=== PATIENT | male | born 1945 | race Caucasian/White ===

== ENCOUNTER → 2017-10-25 10:20 | Outpatient (CLI) | payer MEDICARE, MEDICAID, SELFPAY ==
[2017-10-25 11:35] LABS: PSA,Total - Annual Screen 0.59 ng/mL (0.00-4.00)
== END ==
PROVIDERS: Family Provider Family Medicine; PCP Family Medicine; Visit Provider Urology
DX: Z12.5 Encounter for screening for malignant neoplasm of prostate (principal)
CPT/HCPCS: 36415; 84153; G0103

== ENCOUNTER → 2018-11-04 13:41 | Outpatient (CLI) | payer MEDICARE, MEDICAID, SELFPAY ==
[2018-11-04 15:07] LABS: PSA,Total - Annual Screen 0.46 ng/mL (0.00-4.00)
== END ==
PROVIDERS: Family Provider Family Medicine; PCP Family Medicine; Referring Provider Urology; Visit Provider Urology
DX: Z12.5 Encounter for screening for malignant neoplasm of prostate (principal)
CPT/HCPCS: 36415; 84153; G0103

== ENCOUNTER 2019-09-13 01:21 | Inpatient (IN) | payer MEDICARE, MEDICAID, SELFPAY ==
[2019-09-13] VITALS (48 sets, daily range): BP systolic 92–160; BP diastolic 48–95; PULSE 75–142; RESP 12–40; TEMP 36.4–37.3; O2SAT 79–100; BMI 27.5; BMI 25.6
--- NOTE | 2019-09-13 01:46 | RAD_ITS ---
STUDY: X-RAY CHEST REASON FOR EXAM: Male, 74 years old. cough and sob TECHNIQUE: PA and lateral views of the chest. COMPARISON: None. FINDINGS: The lungs are normally expanded with mild bilateral lower lobe distended with pneumonia. There is no demonstrated pleural abnormality. Normal size heart. Normal mediastinum and morena. Normal visualized pulmonary arteries. There is atherosclerotic calcification of the aortic arch with tortuosity. Normal visualized thoracic spine. There is degenerative osteoarthritis of the bilateral shoulders. There is no demonstrated abnormality of the visualized soft tissue structures of the upper abdomen. RAD/Chest PA and Lateral IMPRESSION: Bilateral lower lobe pneumonia. Electronically Signed: Paris Espinoza MD at 2:32 EST , Service support ,
--- NOTE | 2019-09-13 01:46 | EKG12_ITS ---
Test Reason : Blood Pressure : / mmHG Vent. Rate : 122 BPM Atrial Rate : 122 BPM P-R Int : 138 ms QRS Dur : 100 ms QT Int : 332 ms P-R-T Axes : 043 -21 103 degrees QTc Int : 473 ms Sinus tachycardia with occasional Premature ventricular complexes Possible Left atrial enlargement Left ventricular hypertrophy with repolarization abnormality Abnormal ECG Confirmed by YANETH JOYA, SEPIDEH ([id number]), graphics editor JERMAIN BAUTISTA ([id number]) on 09/16/2019 9:55:17 AM Referred By: Carter Coon Confirmed By:SEPIDEH WOLFE MD
--- NOTE | 2019-09-13 01:47 | ED.DCSUM_ITS ---
History of Present Illness Chief Complaint: Shortness of Breath Informant: Patient Narrative: Patient stated approximately 2 hours ago he started having a cough. Productive of mucus. He had a normal day otherwise. He felt short of breath between coughing episodes and could not catch his breath tonight so called EMS. They gave 1 breathing treatment. He comes in for further evaluation. He recently had a sinus infection which he said he was getting over. No history of asthma or COPD. Denies any chest pain. Currently he denies any symptoms. He has had multiple coughing fits lasting for 10 to 15 seconds in the department. Denies sick contacts. Did not get a flu shot. Denies any other flulike symptoms. 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 Past Medical History - Allergies and Home Meds Allergies/Adverse Reactions: Allergies Sulfa (Sulfonamide Antibiotics) Allergy (Verified 09/13/19 01:22) Swelling acetaminophen [From [facility]] Adverse Reaction (Verified 09/13/19 01:22) confusion hydrocodone bitartrate [From [facility]] Adverse Reaction (Verified 09/13/19 01:22) confusion Primary Care Physician: Carter Coon DO [Primary Care Provider] - Prior records reviewed: Yes Past Medical History: - - Enlarged prostate Surgical History: - - Right nephrectomy Lives: With Family Smoking Status: Never smoker Alcohol: None Drugs: None Review of Systems General: Denies: Chills, Fever, Sweats Eyes: Denies: Visual changes - bilaterally, Diplopia ENT: Denies: Rhinorrhea, Sore throat Cardiovascular: Denies: Chest pain, Palpitations Respiratory: Reports: Dyspnea, Cough, Sputum. Denies: Dyspnea on exertion Gastrointestinal: Denies: Abdominal pain, Nausea, Vomiting, Diarrhea, Melena, Hematochezia Genitourinary: Denies: Dysuria, Hematuria, Frequency Musculoskeletal: Denies: Back pain, Extremity Pain Skin: Denies: Rash, Wounds Neurological: Denies: Headache, Weakness, Numbness Physical Exam Vital Signs/Narrative: Vital Signs Temp Pulse Resp BP Pulse Ox 09/13/19 01:32 132 H 20 H 160/76 H 94 09/13/19 01:23 97.8 F 122 H 20 H 128/82 H 79 General: Well nourished, Well developed, No Acute Distress Head: Normocephalic, Atraumatic Eyes: Perrl, EOMI ENT: Moist mucous membranes, No rhinorrhea Neck: Supple, Nontender Cardiovascular: Regular rate, Regular rhythm, No murmurs Respiratory: No distress, Chest nontender, Rhonchi - Throughout all lung mann, Wheezing - Mild expiratory. Negative for: CTA bilaterally, Rales Abdomen: Soft, Nontender, Nondistended, Normal bowel sounds Back: Nontender, Normal Inspection Extremities: Nontender, No edema Skin: Normal color, No rash Neurological: Alert, Oriented x3, Cranial nerves II-XII grossly intact, Normal Strength, Normal Sensation Psychological: Normal affect, Normal Mood Diagnostic/Tx/Re-eval - Medical Decision Making Patient given a breathing treatment. [place] better afterwards lab work chest x- ray obtained. EKG shows sinus tachycardia at 122. PVC noted. I suspect the tachycardia secondary to albuterol. This x-ray shows bilateral lower pneumonia. Lab work does show a leukocytosis with a left shift. However this appears chronic per patient patient's creatinine is elevated above baseline patient given IV fluids. Patient required nasal cannula oxygen for hypoxia with coughing fits. Will be started on intravenous antibiotics for bilateral pneumonia. Blood culture sent. Troponin comes back indeterminate. This could be secondary to renal insufficiency. This also could be secondary to cardiac st rain from his pneumonia. We will cycle enzymes as an inpatient ED Disposition - Plan for ED Patient: Disposition: Acute Care Hospital [facility] Diagnosis: Community acquired pneumonia
--- NOTE | 2019-09-13 01:54 | ED.RN ---
DR. MACIAS SAID HE DOESN'T THINK THE PATIENT IS A SEPTIC ALERT. HE BELIEVES HE IS HAVING A COUGHING FIT. A LACTIC AND ONE SET OF BLOOD CULTURES DRAWN HOWEVER HE DID NOT ORDER THEM YET.
[2019-09-13 01:55] LABS: Absolute Lymphocyte Count 1.21 X10^3/uL (0.83-4.51); Absolute Neutrophil Count 9.4 X10^3/uL (2.0-7.7); Basophil# 0.04 X10^3/uL; Basophil% 0.4 % (0-1); Eosinophils% 0.9 % (0-5); Hematocrit 48.4 % (40-54); Hemoglobin 15.7 g/dL (13.0-16.5); Lymphocyte # 1.21 X10^3/ul (4.0); Lymphocyte % 10.7 % (19-41); Mean Corp Hgb Conc 32.4 g/dL (32-36); Mean Corpuscular Hgb 30.5 pg (27.0-32.0); Mean Platelet Vol. 9.6 fl (6.2-12.0); Monocyte# 0.59 X10^3/uL; Monocyte% 5.2 % (0-10); NRBC Flagged by Analyzer 0 % (0-5); Neutrophil # 9.37 X10^3/uL (2.7-7.7); Neutrophil % 82.4 % (47-70); Platelet Count 204 K/mm3 (150-450); RBC Distribution Width CV 12.7 % (11.6-14.6); RBC Distribution Width SD 43.9 fl (35.1-43.9); Red Blood Count 5.15 M/mm3 (4.6-6.2); White Blood Count 11.4 K/mm3 (4.4-11.0)
[2019-09-13] MEDS: Ipratropium/Albuterol Sulfate 3 ML AMPUL.NEB INHALATION ×6 (01:59→23:29)
[2019-09-13 02:14] LABS: Anion Gap 11 (5-15); BUN 27 mg/dL (7-18); BUN/Creat Ratio 16.4 RATIO (10-20); Calcium,Total 8.8 mg/dL (8.5-10.1); Chloride 105 mmol/L (98-107); Creatinine, Serum 1.65 mg/dL (0.70-1.30); EST Glomerular Filtration Rate 43 mL/min (>60); Est Glom Filt Rate - Afr Amer 53 mL/min (>60); Estimated Creatinine Clearance 33.65 ml/min; Glucose 283 mg/dL (74-106); Potassium 3.9 mmol/L (3.5-5.1); Sodium Level 139 mmol/L (136-145)
--- NOTE | 2019-09-13 02:26 | ED.RN ---
CALLED TO THE ROOM AND PATIENT WAS FEELING SOB AGAIN. HE DID NOT HAVE HIS O2 ON. I PUT THE OXYGEN BACK ON AND HE IS RECOVERING . CURRENTLY 94% ON 5 L.
--- NOTE | 2019-09-13 02:40 | PCM.HP.STD ---
Problem List (1) Sepsis Status: Acute Qualifiers: Sepsis type: sepsis due to unspecified organism Sepsis acute organ dysfunction status: unspecified Qualified Code(s): A41.9 - Sepsis, unspecified organism (2) Acute respiratory failure with hypoxia Status: Acute (3) Pneumonia Status: Acute Qualifiers: Pneumonia type: due to unspecified organism Laterality: bilateral Lung location: unspecified part of lung Qualified Code(s): J18.9 - Pneumonia, unspecified organism (4) JOSE (acute kidney injury) Status: Acute (5) Diabetes mellitus, type II Status: Chronic Qualifiers: Diabetes mellitus group home insulin use: without buttermaker continuous churn use Diabetes mellitus complication status: with other specified complication Qualified Code(s): E11.69 - Type 2 diabetes mellitus with other specified complication (6) PVD (peripheral vascular disease) Status: Chronic (7) BPH (benign prostatic hyperplasia) Status: Chronic Qualifiers: Lower urinary tract symptom presence: unspecified whether lower urinary tract symptoms present Qualified Code(s): N40.0 - Benign prostatic hyperplasia without lower urinary tract symptoms (8) History of nephrectomy, unilateral Status: Chronic History of Present Illness Date of Admission: 09/13/19 Chief Complaint: Dyspnea, cough The patient is a 74 y/o M w/ PMHx: Congenital Scoliosis, 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, Diabetes mellitus type II, BPH who presents to the [facility] ED on 09/13/19 with history of severe harsh, productive cough of yellow to clear sputum with dyspnea, worsening over the last 24 hours, more severe this evening with several recent patient reported sinus infection however he was never on any antibiotic therapy and only notes treatment with nasal spray with no significant facial pressure pain reported nor fever or chills and he notes feeling as though he was improving until onset starting the evening prior dyspnea, worse with any exertion as well as onset of severe harsh coughing bouts for several hours prior to ED presentation. Patient notes that he did not have the influenza vaccination this year. Work-up in the ED included T 97.8, heart rate initially 122 with improvement 105, BP 120/82, respiratory rate initially 20 with 79% on room air with notable increased work of breathing, accessory muscle usage, conversational dyspnea with continued coughing bouts with improvement to 95% on 4 L nasal cannula, CBC with WBC 11.4, hemoglobin 15.5, platelet 204 with left shift, BMP with BUN/creatinine 27/1.65, glucose 2-3, troponin 0.049, EKG was sinus tachycardia with no acute evidence of ischemia, chest x-ray with bilateral lobe pneumonia, Bld Cx x 2 pending per ED. In the ED patient ministered DuoNeb therapy, albuterol as well as normal saline. Past Medical History Past Medical History (Chronic Problems): Chronic Problems Diabetes mellitus, type II (Chronic) PVD (peripheral vascular disease) (Chronic) BPH (benign prostatic hyperplasia) (Chronic) History of nephrectomy, unilateral (Chronic) Allergies Sulfa (Sulfonamide Antibiotics) Allergy (Verified 09/13/19 01:22) Swelling acetaminophen [From [facility]] Adverse Reaction (Verified 09/13/19 01:22) confusion hydrocodone bitartrate [From [facility]] Adverse Reaction (Verified 09/13/19 01:22) confusion Home Medications: Ambulatory Orders Medication Instructions Recorded Tamsulosin HCl [Flomax] 0.4 mg PO QHS 04/21/15 Multivit-Min/FA/Lycopen/Lutein 1 each PO DAILY 05/12/15 [Centrum Silver Tablet] Finasteride 1 tab PO DAILY 09/13/19 metFORMIN HCl [Glucophage] 500 mg PO DAILY 09/13/19 Surgical History: - - Right nephrectomy, cleft lip repair, tonsillectomy, left inguinal hernia repair, right inguinal hernia repair x2, spinal surgery for correction of scoliosis. Psychiatric History: No pertinent psych hx Lives: Alone Smoking Status: Never smoker Tobacco Use: Secondhand - Patient did have secondhand exposure in his youth as he notes his parents both smoked heavily. Alcohol: None Drugs: None - *Family History Maternal History Items: - - Patient notes maternal family history of cancer including thyroid cancer, breast cancer and eventually lung cancer with heavy tobacco use history. Paternal History Items: - - Patient notes a paternal family history of lung disease, unclear specific but notes he had several bouts of pneumonia and breathing issues. Review of Systems Constitutional: Reports: Malaise, Weakness, Fatigue. Denies: Chills, Fever, Weight Change HEENT: Reports: Nasal Congestion, Sinus Congestion, Sinus Drainage. Denies: Head Aches Cardiovascular: Denies: Chest Pain, Palpitations Respiratory: Reports: Cough, Shortness of Breath, Shortness of breath at rest, Shortness of breath upon exertion, Sputum production Gastrointestinal: Denies: Abdominal Pain, Nausea, Vomiting Genitourinary: Denies: Dysuria Musculoskeletal: Reports: Back Pain, Joint Pain. Denies: Joint Tenderness Skin: Denies: Rash, Wounds Neurological: Denies: Numbness, Tingling, Focal weakness Psychiatric: Denies: Anxiety, Depression, Homicidal Ideations, Suicidal Ideations Hematologic/ Lymphatic: Denies: Easy Bruising, Easy Bleeding VTE Information - Inpt Only VTE Present on Admission: No VTE Mechan Device Prophylaxis: SCD's VTE Pharm Prophylaxis ordered?: Yes Patient Problems: Active and Suspected Problems Sepsis (Acute) Acute respiratory failure with hypoxia (Acute) Pneumonia (Acute) JOSE (acute kidney injury) (Acute) Subjective: Seated upright in the ED bed, fatigued appearance, currently coughing has decided and improve respiratory status with oxygen supplementation. Objective: Physical Examination: General: awake, alert, oriented x 3 and cooperative, seated upright in the ED bed, fatigued appearance, currently no acute distress, subsided coughing bout but previously had been in notable distress with increased work of breathing, conversational dyspnea, accessory muscle usage with hypoxia. Skin: normal color, turgor, no icterus, cyanosis. HEENT: AT/NC, EOMI, PERRLA, dry MM, no carotid bruits or JVD noted. Lungs: Diminished breath sounds, greater bases, bilateral rhonchi, coarse, decreased effort, recent severe coughing bouts of now subsided but were ongoing in the ED, no obvious rales or wheezing at this time. Heart: Remains mildly tachycardic with regular rhythm; no gallop, rub audible. Abdomen: soft, NTTP, ND, normal BS, no HSM. Extremities: no cyanosis, clubbing, or edema. Neurological: patient awake, alert, oriented x 3; cognitive function intact; pupils equally reactive to light and accomodation; cranial nerves II-XII grossly normal, moving all 4 extremities, no focal deficits, strength severely global decrease secondary to acute presentation. Psychiatric: affect appears fatigued, no acute evidence of depressive or anxiety feelings. - Physical Exam Vitals/I&O's: Vital Signs Temp Pulse Resp BP Pulse Ox 97.8 F 105 H 20 H 132/82 H 95 09/13/19 01:52 09/13/19 01:59 09/13/19 01:59 09/13/19 01:52 09/13/19 01:52 Oxygen Flow Rate (L/min) 4 Oxygen Delivery Method Nasal Cannula Weight: 165 lb 5.547 oz Body Mass Index (BMI) 27.5 Finger Stick Blood Glucose 227 Laboratory Results 09/13/19 01:45: WBC 11.4 H, RBC 5.15, Hgb 15.7, Hct 48.4, MCV 94.0, MCH 30.5, MCHC 32.4, RDW Std Deviation 43.9, RDW Coeff of Morris 12.7, Plt Count 204, MPV 9.6, Immature Gran % (Auto) 0.400, Neut % (Auto) 82.4 H, Lymph % (Auto) 10.7 L, Patrick % (Auto) 5.2, Eos % (Auto) 0.9, Baso % (Auto) 0.4, Absolute Neuts (auto) 9.4 H, Absolute Lymphs (auto) 1.21, Nucleated RBC % 0 09/13/19 01:45: Sodium 139, Potassium 3.9, Chloride 105, Carbon Dioxide 23.0, Anion Gap 11, BUN 27 H, Creatinine 1.65 H, Estim Creat Clear Calc 33.65, Est GFR (MDRD) Af Amer 53 L, Est GFR (MDRD) Non-Af 43 L, BUN/Creatinine Ratio 16.4, Glucose 283 H, Calcium 8.8, Troponin I 0.049 H Current Medications Sodium Chloride () 500 mls @ 1,000 mls/hr IV .Q30M [place] Stop: 09/13/19 03:14 Assessment/Plan All Active Problems Sepsis (Acute) Acute respiratory failure with hypoxia (Acute) Pneumonia (Acute) JOSE (acute kidney injury) (Acute) The patient is a 74 y/o M w/ PMHx: Congenital Scoliosis, 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 1. Acute Sepsis secondary to Acute Hypoxic Respiratory Failure secondary to Community Acquired Pneumonia: Will admit to PCU, maintain on telemetry, maintain on oxygen with wean as tolerated to room air, continue ATC duonebs, PRN albuterol, maintained on IV Rocephin and Azithromycin, HOB, IS parameters w/ pending sputum cultures, respiratory viral panel and urine antigens. 2. Acute kidney injury w/ Hx Prior Obstructive Uropathy s/p Unilateral Nephrectomy: Secondary to acute presentation as noted #1, dehydration. Admission BUN/Cr 27/1.65, prior baseline creatinine noted to be 1.0-1.2. Will hydrate, hold nephrotoxic medications and repeat chemistry in AM. If no improvement would plan FeNa and renal US assessment. 3. Indeterminate cardiac enzyme, likely secondary to acute presentation as noted #1, strain: EKG in ED sinus tachycardia without acute evidence of ischemia, CXR w/ BL LE PNA, initial trop 0.049. Will place on a monitored bed to assure no acute myocardial infarction with serial cardiac enzymes and EKGs. ASA, NG, morphine. 4. Diabetes mellitus type II: Hold oral home regimen, ADA diet, accu checks w/ ISS. 5. BPH: We will continue patient home Flomax and Proscar regimen. 6. DVT prophylaxis: SCDs, heparin. Code Visit Inpatient E&M: 48340 Init Hosp L3
[2019-09-13 03:06] LABS: Lactic Acid 4.2 mmol/L (0.4-1.9)
[2019-09-13] MEDS: Ceftriaxone 1 GM/50 ML BAG IV (03:10)
[2019-09-13] MEDS: 0.9% Normal Saline 1,000 ML 999 ML IV ×2 (05:11→06:13)
[2019-09-13 05:30] LABS: Absolute Lymphocyte Count 0.63 X10^3/uL (0.83-4.51); Absolute Neutrophil Count 9.8 X10^3/uL (2.0-7.7); Basophil# 0.01 X10^3/uL; Basophil% 0.1 % (0-1); Eosinophil# 0.01 X10^3/uL; Eosinophils% 0.1 % (0-5); Hematocrit 41.9 % (40-54); Hemoglobin 13.8 g/dL (13.0-16.5); Lymphocyte # 0.63 X10^3/ul (4.0); Lymphocyte % 5.6 % (19-41); Mean Corp Hgb Conc 32.9 g/dL (32-36); Mean Corpuscular Hgb 30.7 pg (27.0-32.0); Mean Corpuscular Volume 93.3 fL (80-94); Mean Platelet Vol. 9.7 fl (6.2-12.0); Monocyte# 0.75 X10^3/uL; Monocyte% 6.7 % (0-10); NRBC Flagged by Analyzer 0 % (0-5); Neutrophil # 9.76 X10^3/uL (2.7-7.7); Platelet Count 177 K/mm3 (150-450); RBC Distribution Width CV 12.8 % (11.6-14.6); RBC Distribution Width SD 43.8 fl (35.1-43.9); Red Blood Count 4.49 M/mm3 (4.6-6.2); White Blood Count 11.2 K/mm3 (4.4-11.0)
--- NOTE | 2019-09-13 05:55 | EKG12_ITS ---
Test Reason : AM EKG Blood Pressure : / mmHG Vent. Rate : 099 BPM Atrial Rate : 099 BPM P-R Int : 142 ms QRS Dur : 102 ms QT Int : 388 ms P-R-T Axes : 053 -26 112 degrees QTc Int : 497 ms Sinus rhythm with occasional Premature ventricular complexes Nonspecific ST and T wave abnormality Abnormal ECG Confirmed by JOEY JOYA, MATHIEU ([id number]), photograph editor JERMAIN BAUTISTA ([id number]) on 09/17/2019 10:15:28 AM Referred By: Carter Coon Confirmed By:MATHIEU COOK MD
[2019-09-13 05:59] LABS: Anion Gap 6 (5-15); BUN 24 mg/dL (7-18); BUN/Creat Ratio 17.9 RATIO (10-20); Calcium,Total 7.7 mg/dL (8.5-10.1); Chloride 106 mmol/L (98-107); Creatinine, Serum 1.34 mg/dL (0.70-1.30); EST Glomerular Filtration Rate 55 mL/min (>60); Est Glom Filt Rate - Afr Amer 67 mL/min (>60); Estimated Creatinine Clearance 41.43 ml/min; Glucose 229 mg/dL (74-106); Magnesium 1.9 mg/dL (1.6-2.6); Potassium 4.3 mmol/L (3.5-5.1); Sodium Level 138 mmol/L (136-145)
--- NOTE | 2019-09-13 06:36 | ECHOCS_ITS ---
Reason For Study: Arrhythmia Procedure This was a 2D Doppler, Color Flow transthoracic echocardiogram. Contrast injection was performed. Exam performed portable in ICU/CCU. Left Ventricle Mildly dilated left ventricle. Concentric left ventricular hypertrophy. The estimated ejection fraction is 20-25 %. There is severe global hypokinesis of the left ventricle. Right Ventricle Mildly dilated right ventricle. Mild global right ventricular systolic dysfunction. Atria Normal left atrium. Normal right atrium. Mitral Valve The mitral valve is structurally normal. No prolapse or stenosis seen. Trivial mitral valve insufficiency. Tricuspid Valve Normal tricuspid valve. Trivial tricuspid valve insufficiency. Pulmonary artery systolic pressure is 37 mmHg. Aortic Valve Normal aortic valve. Mild (1+) aortic valve insufficiency. Pulmonic Valve Normal pulmonic valve. Trivial pulmonic valve insufficiency. Medication Diluted definity 3ml given slow IV push to enhance endocardial definition. MMode/2D Measurements & Calculations LVIDd: 5.4 cm IVSd: 0.99 cm Ao root diam: 2.8 cm LVIDs: 4.9 cm LVPWd: 1.2 cm FS: 9.8 % LAV(MOD-bp): 34.8 ml LVAd ap4: 34.8 cm2 SV(MOD-sp4): 31.9 ml LAV(MOD-bp) Indexed: 19.1 ml/m2 EDV(MOD-sp4): 130.3 ml LAV(MOD-sp2): 22.4 ml EDV(sp4-el): 133.3 ml LAV(MOD-sp4): 41.1 ml LVAs ap4: 29.2 cm2 ESV(MOD-sp4): 98.4 ml ESV(sp4-el): 99.6 ml EF(MOD-sp4): 24.5 % EF(sp4-el): 25.3 % SV(sp4-el): 33.7 ml LA dimension(2D): 2.7 cm LA A4 area: 17.5 cm2 RA A4 area: 10.0 cm2 Doppler Measurements & Calculations MV E max anurag: 63.0 cm/sec Lat Peak E' Anurag: 3.7 cm/sec Med Peak E' Anurag: 8.7 cm/sec MV A max anurag: 72.5 cm/sec E/E' lat: 17.1 E/E' med: 7.2 MV E/A: 0.87 Ao V2 max: 126.2 cm/sec AI max anurag: 421.2 cm/sec LV V1 max: 92.1 cm/sec Ao max P.4 mmHg AI max P.0 mmHg LV V1 max P.4 mmHg Ao V2 mean: 90.8 cm/sec Ao mean P.6 mmHg AI dec slope: 506.2 cm/sec2 Ao V2 VTI: 22.1 cm AI P1/2t: 243.7 msec PA V2 max: 68.9 cm/sec TR max anurag: 258.6 cm/sec TR max P.8 mmHg Interpretation Summary Technically good quality study. Mildly dilated left ventricle. Concentric left ventricular hypertrophy. The estimated ejection fraction is 20-25 %. There is severe global hypokinesis of the left ventricle. Mild global right ventricular systolic dysfunction. Normal left atrium. Trivial mitral valve insufficiency. Trivial tricuspid valve insufficiency. Mild (1+) aortic valve insufficiency. No evidence for pulmonary HTN Ordering Physician: Rosa Allen Referring Physician: Carter Coon Performed By: Monika Stahl, ARIELA, RVT
[2019-09-13 06:50] LABS: Reflex Lactate? Y
[2019-09-13 07:00] LABS: Bedside Glucose 158 mg/dL (70-110)
[2019-09-13] MEDS: Aspirin 325 MG Tablet PO (07:40)
[2019-09-13] MEDS: Insulin Lispro 100 UNIT/ML INSULN.PEN SC ×2 (07:41→21:25)
[2019-09-13 07:43] LABS: Lactic Acid 1.7 mmol/L (0.4-1.9)
[2019-09-13] MEDS: 0.9% Normal Saline 1,000 ML 125 ML IV (07:44)
[2019-09-13 07:56] LABS: International Normalized Ratio 1.2; Prothrombin Time (Protime)PT. 14.5 SECONDS (11.7-14.9)
[2019-09-13 07:57] LABS: Partial Thromboplast Time 28.6 Seconds (24.1-36.2)
[2019-09-13] MEDS: Heparin Injection (Vial) 5,000 UNIT/ML VIAL 4500 UNIT IV (08:02)
[2019-09-13] MEDS: HEPARIN/D5w 25,000 UNITS 25,000 UNITS/250 ML IV.SOLN. 10 UNITS IV (08:03)
[2019-09-13 08:21] LABS: Base Excess -3 mmol/L (-2 to +2); Bicarbonate 22.9 mmol/L (22-26); Blood Gas Specimen Type ART; FI02 50; PO2 58 mmHG (75-100); SITE L Radial; SO2 88 % (95-99); Time Given 816; Total Carbon Dioxide 24 mmol/L; pCO2 40.6 mmHg (35-45); pH 7.36 (7.35-7.45)
--- NOTE | 2019-09-13 08:34 | NURSING ---
report called to ICU.
--- NOTE | 2019-09-13 09:21 | CM.UR ---
Patient just transferred to ICU. On continuous bipap. Not rounding on patient this am. Will need CM assessment at later time. Areli Fernandez RN,CCM.
[2019-09-13] MEDS: Vancomycin IV 1,000 MG/200 ML BAG 200 MG IV (11:14)
[2019-09-13] MEDS: Enoxaparin 80 MG/0.8 ML Syringe 70 MG SC (11:15)
[2019-09-13] MEDS: Lactated Ringers 1,000 ML 100 ML IV (11:21)
[2019-09-13 11:26] LABS: Bedside Glucose 132 mg/dL (70-110)
[2019-09-13 12:51] LABS: M R Staph aureus DNA By PCR Negative (Negative); Probe Check PASS; Specimen Processing Control PASS
--- NOTE | 2019-09-13 13:11 | PN_ITS ---
Patient Problems: Active and Suspected Problems Sepsis (Acute) Acute respiratory failure with hypoxia (Acute) Pneumonia (Acute) JOSE (acute kidney injury) (Acute) Community acquired pneumonia (Acute) Reason for Visit: Acute hypoxic respiratory failure, severe sepsis, bilateral pneumonia Objective: Patient was seen in the morning at 8 AM and then afternoon in ICU. Patient was taken care of extended period of time. The patient was admitted earlier acute respiratory failure, pulse ox 92% on 5 L of oxygen but was still tachypneic, respiratory rate went 40/min, labored breathing, heart rate 142 and therefore started on BiPAP. Transferred to ICU Patient also did not any urine output after 2500 mL fluid bolus. Vitals/I&O's: Vital Signs Temp Pulse Resp BP Pulse Ox 97.5 F L 142 H 16 132/78 H 90 09/13/19 04:00 09/13/19 07:18 09/13/19 04:02 09/13/19 04:00 09/13/19 07:55 Oxygen Flow Rate (L/min) 5 Oxygen Delivery Method Venturi Mask Weight: 153 lb 14.122 oz Body Mass Index (BMI) 25.6 Finger Stick Blood Glucose 227 Intake and Output for Last 24 Hours 09/11/19 09/12/19 09/13/19 23:59 23:59 23:59 Intake Total 2805 / 2805 Balance 2805 / 2805 General: Oriented x3, Cooperative, Lethargic, - HEENT: Atraumatic, PERRLA, EOMI, Normocephalic Neck: Supple, No JVD, Negative Carotid Bruits Lungs: Rhonchi, Short of Breath, Tachypneic, Using Accessory Muscles, - - Air entry severely diminished in both lungs. On BiPAP Cardiovascular: Regular Rhythm, Normal S1, Normal S2, No murmurs, Tachycardic Abdomen: Bowel Sounds Present, Soft, Non Tender, Non-Distended Extremities: No edema, Capillary Refill Less than 3 Seconds, Edema Skin: No rashes, No breakdown Musculoskeletal: Arthritic Changes Neurological: - - Is lethargic. Detailed neuro exam not done as patient is very short of breath in detail neuro exam Laboratory Results 09/13/19 01:45: WBC 11.4 H, RBC 5.15, Hgb 15.7, Hct 48.4, MCV 94.0, MCH 30.5, MC HC 32.4, RDW Std Deviation 43.9, RDW Coeff of Morris 12.7, Plt Count 204, MPV 9.6, Immature Gran % (Auto) 0.400, Neut % (Auto) 82.4 H, Lymph % (Auto) 10.7 L, [place] % (Auto) 5.2, Eos % (Auto) 0.9, Baso % (Auto) 0.4, Absolute Neuts (auto) 9.4 H, Absolute Lymphs (auto) 1.21, Nucleated RBC % 0 09/13/19 01:45: Sodium 139, Potassium 3.9, Chloride 105, Carbon Dioxide 23.0, Anion Gap 11, BUN 27 H, Creatinine 1.65 H, Estim Creat Clear Calc 33.65, Est GFR (MDRD) Af Amer 53 L, Est GFR (MDRD) Non-Af 43 L, BUN/Creatinine Ratio 16.4, Glucose 283 H, Calcium 8.8, Troponin I 0.049 H 09/13/19 01:45: Lactic Acid 4.2 H* 09/13/19 05:18: Sodium 138, Potassium 4.3, Chloride 106, Carbon Dioxide 26.0, Anion Gap 6, BUN 24 H, Creatinine 1.34 H, Estim Creat Clear Calc 41.43, Est GFR (MDRD) Af Amer 67, Est GFR (MDRD) Non-Af 55 L, BUN/Creatinine Ratio 17.9, Glucose 229 H, Calcium 7.7 L, Magnesium 1.9, Troponin I 0.212 H 09/13/19 05:18: WBC 11.2 H, RBC 4.49 L, Hgb 13.8, Hct 41.9, MCV 93.3, MCH 30.7, MCHC 32.9, RDW Std Deviation 43.8, RDW Coeff of Morris 12.8, Plt Count 177, MPV 9.7, Immature Gran % (Auto) 0.500, Neut % (Auto) 87.0 H, Lymph % (Auto) 5.6 L, [place] % (Auto) 6.7, Eos % (Auto) 0.1, Baso % (Auto) 0.1, Absolute Neuts (auto) 9.8 H, Absolute Lymphs (auto) 0.63 L, Nucleated RBC % 0 09/13/19 06:51: POC Glucose 158 H 09/13/19 07:00: PT 14.5, INR 1.2, APTT 28.6 09/13/19 07:00: Lactic Acid 1.7 Current Medications Acetaminophen (Tylenol) 650 mg PO Q6H PRN PRN PRN Reason: Pain Score 1-3/Temp > 100.7 F Al Hydroxide/Mg Hydroxide (Mylanta Ii) 30 ml PO Q6H PRN PRN PRN Reason: Gastric Burning Albuterol Sulfate (Ventolin Aerosols) 2.5 mg INHALATION Q2H PRN PRN PRN Reason: SOB/Wheezing Albuterol/Ipratropium (Duoneb) 3 ml INHALATION Q4HWA.RT [place] Last Admin: 09/13/19 07:12 Dose: 3 ml Documented by: Aspirin (Aspirin, Baby) 81 mg PO DAILY@0800 [facility] Finasteride (Proscar) 5 mg PO DAILY [facility] Glucagon () 1 mg IM .X1 PRN PRN Reason: Hypoglycemia Guaifenesin (Robitussin) 20 ml PO Q4H PRN PRN PRN Reason: COUGH Heparin Sodium (Porcine) (Heparin Na) 0 unit IV UD PRN; Protocol Hydralazine HCl (Apresoline Iv) 10 mg IV Q4H PRN PRN PRN Reason: SBP > 160 Sodium Chloride () 1,000 mls @ 125 mls/hr IV .Q8H [facility] Last Admin: 09/13/19 07:44 Dose: 125 mls/hr Documented by: Azithromycin 500 mg/ Dextrose 255 mls @ 250 mls/hr IV Q24H [facility] Ceftriaxone Sodium 2 gm/ (Sodium Chloride) 50 mls @ 100 mls/hr IV Q24H [facility] Dextrose (Dextrose 10%-Water) 250 mls @ 999 mls/hr IV .Q16M PRN; Protocol PRN Reason: HYPOGLYCEMIA Heparin Sodium/Dextrose () 25,000 units in 250 mls @ 10 mls/hr IV .Q25H [facility]; Protocol Last Admin: 09/13/19 08:03 Dose: 1,000 units/hr, 10 mls/hr Documented by: Insulin Human Lispro (Humalog Kwikpen (Bkc)) 0 unit SC ACHS [facility]; Protocol Last Admin: 09/13/19 07:41 Dose: 1 units Documented by: Magnesium Hydroxide (Milk Of Magnesia) 30 ml PO DAILY PRN PRN PRN Reason: Constipation Melatonin (Melatonin) 3 mg PO QHS PRN PRN PRN Reason: INSOMNIA Morphine Sulfate () 2 mg IV Q3H PRN PRN PRN Reason: Pain Score 6-10/10 Nitroglycerin (Nitrostat) 0.4 mg SUBLINGUAL Q5M PRN PRN Reason: CARDIAC/CHEST PAIN Ondansetron HCl (Zofran) 4 mg IV Q8H PRN PRN PRN Reason: NAUSEA/VOMITING Oxycodone HCl (Oxyir) 5 mg PO Q4H PRN PRN PRN Reason: Pain Score 4-5/10 Prochlorperazine Edisylate (Compazine Iv) 5 mg IV Q4H PRN PRN PRN Reason: Breakthrough Nausea/Vomiting Sodium Chloride () 10 - 40 ml IV UD PRN PRN Reason: SALINE FLUSH Tamsulosin HCl (Flomax) 0.4 mg PO QHS [place] Throat Lozenges (Cepacol Sore Throat Lozenge) 1 lozenge MUCOUS MEM Q2H PRN PRN PRN Reason: Sore Throat/Cough STROKE Vital Signs/Narrative: Vital Signs Pulse Pulse Ox 09/13/19 07:55 90 09/13/19 07:18 142 H 09/13/19 06:57 107 H Medical Necessity - Tobacco Use Smoking Status: Never smoker Tobacco Use: Secondhand Assessment/Plan All Active Problems Sepsis (Acute) Acute respiratory failure with hypoxia (Acute) Pneumonia (Acute) JOSE (acute kidney injury) (Acute) Community acquired pneumonia (Acute) The patient is a 74 y/o M Congenital Scoliosis, 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 1. Septic shock (tachycardia, tachypnea, hypoxia, lactic acidosis lactic acid 4.2) and severe acute Hypoxic Respiratory Failure secondary to Community Acquired Pneumonia: Patient is being transferred to ICU from PCU on BiPAP. Patient blood pressure is still maintained, 132/78. Patient had normal saline 2.5 L bolus but no urine output. Naturalist consult. Antibiotic broadened to vancomycin and Zosyn. Discontinue Rocephin. Severe sepsis/septic shock protocol followed. Pneumonia work-up pending. Follow-up blood cultures, urinary antigens, respiratory panel Gram stain. ABG reviewed. 7./58 on 50% FiO2 Ventimask with acute hypoxic respiratory failure with increased Aa gradient. 2. Severe acute hypoxic respiratory failure secondary to bilateral lower lobes pneumonia: Chest x-ray independently reviewed and shows right middle lobe right lower lobe and left lower lobe infiltrate/consolidation consistent with pneumonia. 3. Acute kidney injury with history of right nonfunctioning kidney secondary to UPJ obstruction status post right nephrectomy: At baseline creatinine runs around 1.25. Admitted with 1.65, currently 1.34. Current nephrology consulted. Rollins catheter inserted. Monitor strict input and output, daily kidney function and electrolytes. Acute kidney injury possible secondary to prerenal/sepsis and ATN Third troponin 0 0.351. In the afternoon, patient was seen by cognos bi administrator. Recommended discontinuation of IV fluid patient had 3.5 L of fluid with positive fluid balance of 2.6 L. IV fluid discontinued. Urine output 875 mL. 4. Indeterminate cardiac enzyme, most likely secondary to increased cardiac demand/sepsis: EKG in ED sinus tachycardia without acute evidence of ischemia Serial troponin 0 0.04, increased to 0.21. Patient denies chest pain but has chest congestion. Commercial Housekeeper is consulted. Continue ASA, NG, morphine. Patient does not have chest pain therefore is mainly secondary to increased cardiac demand. Heparin drip changed to Lovenox with creatinine clearance. Discussed with pump and still operator. Patient needs first stabilization of pulmonary status and may need cardiac cath late next week. 4. Diabetes mellitus type II: Hold oral home regimen, ADA diet, accu checks w/ ISS. 5. BPH: We will continue patient home Flomax and Proscar regimen. 6. DVT prophylaxis: SCDs, heparin. Total time of the visit including total critical time spent in stabilizing the patient, counseling or coordination of care, (more than 50% of the total time, spent in obtaining medical information from nurses and other ancillary care providers), review of labs and imaging is 60 mins Microbiology Past 72 Hours 09/13/19 08:07 Urine, Clean Catch Streptococcus pneumoniae Antigen (M - Final 09/13/19 08:07 Urine, Clean Catch Legionella Antigen - Final Laboratory Results 09/13/19 01:45: WBC 11.4 H, RBC 5.15, Hgb 15.7, Hct 48.4, MCV 94.0, MCH 30.5, MCHC 32.4, RDW Std Deviation 43.9, RDW Coeff of Morris 12.7, Plt Count 204, MPV 9.6, Immature Gran % (Auto) 0.400, Neut % (Auto) 82.4 H, Lymph % (Auto) 10.7 L, [place] % (Auto) 5.2, Eos % (Auto) 0.9, Baso % (Auto) 0.4, Absolute Neuts (auto) 9.4 H, Absolute Lymphs (auto) 1.21, Nucleated RBC % 0 09/13/19 01:45: Sodium 139, Potassium 3.9, Chloride 105, Carbon Dioxide 23.0, Anion Gap 11, BUN 27 H, Creatinine 1.65 H, Estim Creat Clear Calc 33.65, Est GFR (MDRD) Af Amer 53 L, Est GFR (MDRD) Non-Af 43 L, BUN/Creatinine Ratio 16.4, Glucose 283 H, Calcium 8.8, Troponin I 0.049 H 09/13/19 01:45: Lactic Acid 4.2 H* 09/13/19 05:18: Sodium 138, Potassium 4.3, Chloride 106, Carbon Dioxide 26.0, Anion Gap 6, BUN 24 H, Creatinine 1.34 H, Estim Creat Clear Calc 41.43, Est GFR (MDRD) Af Amer 67, Est GFR (MDRD) Non-Af 55 L, BUN/Creatinine Ratio 17.9, Glucose 229 H, Calcium 7.7 L, Magnesium 1.9, Troponin I 0.212 H 09/13/19 05:18: WBC 11.2 H, RBC 4.49 L, Hgb 13.8, Hct 41.9, MCV 93.3, MCH 30.7, MCHC 32.9, RDW Std Deviation 43.8, RDW Coeff of Morris 12.8, Plt Count 177, MPV 9.7, Immature Gran % (Auto) 0.500, Neut % (Auto) 87.0 H, Lymph % (Auto) 5.6 L, [place] % (Auto) 6.7, Eos % (Auto) 0.1, Baso % (Auto) 0.1, Absolute Neuts (auto) 9.8 H, Absolute Lymphs (auto) 0.63 L, Nucleated RBC % 0 09/13/19 06:51: POC Glucose 158 H 09/13/19 07:00: PT 14.5, INR 1.2, APTT 28.6 09/13/19 07:00: Lactic Acid 1.7 09/13/19 08:14: Troponin I 0.351 H Code Visit Procedures: 54632 Critial Care 1st Hr
--- NOTE | 2019-09-13 13:28 | PHA.PHARE_ITS ---
Consult Pharmacy has been consulted to manage selected antiobiotic: Vancomycin Type of Consult: New start Suspected Infection: Pneumonia Prior Doses of Antibiotics Received/Current Regimen: none Labs: Sodium 138 mmol/L (136-145) 09/13/19 05:18 Potassium 4.3 mmol/L (3.5-5.1) 09/13/19 05:18 Chloride 106 mmol/L (98-107) 09/13/19 05:18 Carbon Dioxide 26.0 mmol/L (21.0-32.0) 09/13/19 05:18 Anion Gap 6 (5-15) 09/13/19 05:18 BUN 24 mg/dL (7-18) H 09/13/19 05:18 Creatinine 1.34 mg/dL (0.70-1.30) H 09/13/19 05:18 Est GFR (MDRD) Af Amer 67 mL/min (>60) 09/13/19 05:18 Est GFR (MDRD) Non-Af 55 mL/min (>60) L 09/13/19 05:18 BUN/Creatinine Ratio 17.9 RATIO (10-20) 09/13/19 05:18 Glucose 229 mg/dL (74-106) H 09/13/19 05:18 Microbiology: Microbiology 09/13/19 03:07 Mucosa - Nasopharyngeal Respiratory Panel (PCR) - Final 09/13/19 08:07 Urine, Clean Catch Streptococcus pneumoniae Antigen (M - Fin al 09/13/19 08:07 Urine, Clean Catch Legionella Antigen - Final Weight used for dosin kg Estimated Creatinine Clearance: 42ml/min Goal Trough: 10-15 mcg/mL Pharmacy Plan for Drug Dosing: Pt currently in ICU with pneumonia. He does only have 1 kidney, so a trough goal of 10-15 was ordered. Initial dose of Vancomycin was 1000mg which was administered on 09/13/19 at 1114. Initial dosing recommendation based on weight and CrCl is Vancomycin 1000mg q24h. Next dose to be 09/14/19 at 1100. Trough was ordered for before the 3rd dose, 09/15/19 at 1030. Pharmacy will adjust based on results of that level. Pharmacy Service will continue to monitor and adjust dosing as required. Follow-Up Labs: Trough Vancomycin - 09/15/19 @ 1030
--- NOTE | 2019-09-13 15:50 | PCM.CONS.C ---
Reason for Consult Date of Consultation: 09/13/19 History of Present Illness: The patient is a 74 year old M with medical history significant for having history of congenital scoliosis, history of right nephrectomy segment obstructive uropathy in the past, diabetes mellitus type 2 presented with symptoms of shortness of breath and productive sputum. Initial diagnosis was sepsis with bilateral pneumonia. Subsequently patient was admitted to telemetry and thereafter he was transferred to intensive care unit this morning for impending respiratory failure and placed on BiPAP. History could not be obtained in detail due to the fact the patient remains on BiPAP the time of my evaluation. However he denies any symptoms of chest discomfort. He is feeling better. He has not seen a pollution control chemist or had a stress test in the past. He admits that he is single and has no children and used to work for [employer] and retired. But he has quite a few family members in the area Past Medical History Allergies/Adverse Reactions: Allergies Sulfa (Sulfonamide Antibiotics) Allergy (Verified 09/13/19 01:22) Swelling acetaminophen [From [place]] Adverse Reaction (Verified 09/13/19 01:22) confusion hydrocodone bitartrate [From [place]] Adverse Reaction (Verified 09/13/19 01:22) confusion Home Medications: Ambulatory Orders Medication Instructions Recorded Tamsulosin HCl [Flomax] 0.4 mg PO QHS 04/21/15 Multivit-Min/FA/Lycopen/Lutein 1 each PO DAILY 05/12/15 [Centrum Silver Tablet] Finasteride 1 tab PO DAILY 09/13/19 metFORMIN HCl [Glucophage] 500 mg PO DAILY 09/13/19 Past Medical History (Chronic Problems): Chronic Problems Diabetes mellitus, type II (Chronic) PVD (peripheral vascular disease) (Chronic) BPH (benign prostatic hyperplasia) (Chronic) History of nephrectomy, unilateral (Chronic) Surgical History: - - Right nephrectomy, cleft lip repair, tonsillectomy, left inguinal hernia repair, right inguinal hernia repair x2, spinal surgery for correction of scoliosis. Psychiatric History: No pertinent psych hx - *Family History Maternal History Items: - - Patient notes maternal family history of cancer including thyroid cancer, breast cancer and eventually lung cancer with heavy tobacco use history. Paternal History Items: - - Patient notes a paternal family history of lung disease, unclear specific but notes he had several bouts of pneumonia and breathing issues. Lives: Alone Smoking Status: Never smoker Tobacco Use: Secondhand Alcohol: None Drugs: None Review of Systems - Review of Systems General: Denies: Fever, Night Sweats, Fatigue Cardiovascular: Reports: Shortness of Breath, Shortness of Breath at Rest, Shortness of Breath with Exertion Respiratory: Denies: Cough, Sputum Production, Hemoptysis Gastrointestinal: Denies: Hematemesis, Hematochezia, Melena Genitourinary: Denies: Dysuria, Hematuria Skin: Denies: Rash Objective: Vital Signs Temp Pulse Resp BP Pulse Ox 98.1 F 98 19 H 140/83 H 100 09/13/19 09:00 09/13/19 15:00 09/13/19 15:00 09/13/19 15:00 09/13/19 15:00 Oxygen Flow Rate (L/min) 5 Oxygen Delivery Method Bi-pap Weight: 153 lb 14.122 oz Body Mass Index (BMI) 25.6 Finger Stick Blood Glucose 227 Intake and Output for Last 24 Hours 09/11/19 09/12/19 09/13/19 23:59 23:59 23:59 Intake Total 3515.50 / 3515.50 Output Total 875 / 875 Balance 2640.50 / 2640.50 General: Awake, Alert, Oriented x 3 HEENT: PERRL, EOMI, Sclera Non Icteric Neck: Supple, Good ROM, No Lymph Node Enlargement Lungs: Rhonchi - Bilateral coarse crepitations heard over the bases posteriorly but no rales appreciated. Cardiovascular: Regular Rhythm, Irregular Rhythm, Normal S1, Normal S2, No Murmurs, No Rubs, No Gallops Vascular: No Carotid Bruits, Normal Femoral Pulses, Normal Radial Pulses, Normal Dorsalis Pedal Pulse, Normal Posterior Tibial Pulses Abdomen: Bowel Sounds Present, Soft, Non Tender, No HSM, No Organomegaly Extremities: No Cyanosis, No Clubbing, No edema Neurological: No Focal Motor or Sensory Deficit 09/13/19 01:45: WBC 11.4 H, RBC 5.15, Hgb 15.7, Hct 48.4, MCV 94.0, MCH 30.5, MCHC 32.4, Plt Count 204, MPV 9.6, Immature Gran % (Auto) 0.400, Neut % (Auto) 82.4 H, Lymph % (Auto) 10.7 L, [place] % (Auto) 5.2, Eos % (Auto) 0.9, Baso % (Auto) 0.4, Absolute Neuts (auto) 9.4 H, Nucleated RBC % 0 09/13/19 01:45: Sodium 139, Potassium 3.9, Chloride 105, Carbon Dioxide 23.0, Anion Gap 11, BUN 27 H, Creatinine 1.65 H, Est GFR (MDRD) Af Amer 53 L, Est GFR (MDRD) Non-Af 43 L, BUN/Creatinine Ratio 16.4, Glucose 283 H, Calcium 8.8, Troponin I 0.049 H 09/13/19 01:45: Lactic Acid 4.2 H* 09/13/19 05:18: Sodium 138, Potassium 4.3, Chloride 106, Carbon Dioxide 26.0, Anion Gap 6, BUN 24 H, Creatinine 1.34 H, Est GFR (MDRD) Af Amer 67, Est GFR (MDRD) Non-Af 55 L, BUN/Creatinine Ratio 17.9, Glucose 229 H, Calcium 7.7 L, Magnesium 1.9, Troponin I 0.212 H 09/13/19 05:18: WBC 11.2 H, RBC 4.49 L, Hgb 13.8, Hct 41.9, MCV 93.3, MCH 30.7, MCHC 32.9, Plt Count 177, MPV 9.7, Immature Gran % (Auto) 0.500, Neut % (Auto) 87.0 H, Lymph % (Auto) 5.6 L, [place] % (Auto) 6.7, Eos % (Auto) 0.1, Baso % (Auto) 0.1, Absolute Neuts (auto) 9.8 H, Nucleated RBC % 0 09/13/19 07:00: PT 14.5, INR 1.2, APTT 28.6 09/13/19 07:00: Lactic Acid 1.7 09/13/19 08:14: Troponin I 0.351 H 09/13/19 08:17: pH 7.36, Bicarbonate Actual 22.9, POC Total CO2 24, Base Excess -3 L, O2 Saturation 88 L, ABG pCO2 40.6, ABG pO2 58 L Rhythm: EKG: ECHO: Stress Test: Cardiac Cath: PCI: CT Surgery: Holter monitor: EPS: PPM: CXR: Chest CT Scan: Assessment/Plan Respiratory failure secondary to bilateral pneumonia and remains on BiPAP and IV antibiotics broad-spectrum pending blood cultures and sputum cultures 2. Chronic LV systolic dysfunction the patient was noted to have slight elevated troponins but that does not reflect the severity of cardiomyopathy that was noted on the echocardiogram which showed ejection fraction 20-25% with global hypokinesis. Given history of underlying diabetes mellitus I suspect the patient has severe three-vessel coronary artery disease and the EKG shows evidence of sinus tach cardia with ST segment changes in the anterior precordial leads suggesting of ischemia in anterior territory. A few to be in significant fluid overload but will check a proBNP and will consider starting on a small dose of diuretics to keep him euvolemic while we are treating his pneumonia aggressively. Once the pneumonia is addressed patient would merit to have left heart catheterization to assess underlying coronary artery morphology and possible revascularization based on those findings patient was also made to be on small dose of Entresto once his renal function is stabilized and possibly Coreg in long-term with maintenance of diuretics small dose of potassium sparing diuretic and a loop diuretic. 3. Troponins in light of mildly decreased renal insufficiency indicating acute on chronic kidney disease underlying diabetes mellitus and cardiomyopathy I suspect patient has probably small non-ST elevation myocardial infarction possibly from demand ischemia from hypoxemia secondary to pneumonia. patient was initiated on low molecular weight heparin and this will be continued at least for next 48hrs as his creatinine improved from 1.6 on presentation to 1.3 on today's labs. Will hold off on giving IV fluids to avoid fluid overload. 4. Status post nephrectomy second obstructive uropathy in the past 5. Type II this is addressed by hospitalist services 6. Hypertrophy for which he remains on max and Proscar Discussed with Dr. Sheikh lactation nurse following the patient and with hospitalist
--- NOTE | 2019-09-13 16:01 | PCM.CONS.R ---
Problem List (1) JOSE (acute kidney injury) Status: Acute Consultation - Renal PCP/ Referring MD: Requesting physician: [] Primary care physician: Carter Coon DO - History of Present Illness History of Present Illness: The patient is a 74 year old M [PMH of congenital scoliosis , solitary kidney s/p right nephrectomy , DM, BPH on Finasteride, Flomax Pt was admitted for worsening SOB and cough for one days. Pt was admitted to ICU for acute hypoxemic RF from B/L pneumonia. currently in ICU on BiPAP Pt is being treated with Zosyn and Vancomycin Renal team was consulted for JOSE. Baseline Cr ~ 1.2. Pt presented with JOSE with Cr 1.65 mg/dL. Pt received IVF and currently on RL 100 cc/hour. Last Cr is 1.3 mg/dL As per the nurse. collins cath placement resulted with 400 cc immediate urine result As per the electromechanical equipment assembler consulted in the case, Echo showed EF 35%. Troponin is slightly elevated No IV contrast exposure No NSAIDs use. No skin rash ROS: 12 systems review is negative except SOB and cough] - Allergies Allergies: Allergies Sulfa (Sulfonamide Antibiotics) Allergy (Verified 09/13/19 01:22) Swelling acetaminophen [From [place]] Adverse Reaction (Verified 09/13/19 01:22) confusion hydrocodone bitartrate [From [place]] Adverse Reaction (Verified 09/13/19 01:22) confusion - Current Medications Current Medications: Current Medications Acetaminophen (Tylenol) 650 mg PO Q6H PRN PRN PRN Reason: Pain Score 1-3/Temp > 100.7 F Al Hydroxide/Mg Hydroxide (Mylanta Ii) 30 ml PO Q6H PRN PRN PRN Reason: Gastric Burning Albuterol Sulfate (Ventolin Aerosols) 2.5 mg INHALATION Q2H PRN PRN PRN Reason: SOB/Wheezing Albuterol/Ipratropium (Duoneb) 3 ml INHALATION Q4HWA.RT [facility] Last Admin: 09/13/19 14:26 Dose: 3 ml Documented by: Aspirin (Aspirin, Baby) 81 mg PO DAILY@0800 [facility] Enoxaparin Sodium (Lovenox) 70 mg SC Q12 [facility] Last Admin: 09/13/19 11:15 Dose: 70 mg Documented by: Finasteride (Proscar) 5 mg PO DAILY [facility] Last Admin: 09/13/19 12:33 Dose: Not Given Documented by: Glucagon () 1 mg IM .X1 PRN PRN Reason: Hypoglycemia Guaifenesin (Robitussin) 20 ml PO Q4H PRN PRN PRN Reason: COUGH Hydralazine HCl (Apresoline Iv) 10 mg IV Q4H PRN PRN PRN Reason: SBP > 160 Dextrose (Dextrose 10%-Water) 250 mls @ 999 mls/hr IV .Q16M PRN; Protocol PRN Reason: HYPOGLYCEMIA Piperacillin Sod/Tazobactam (Sod 3.375 gm/ Sodium Chloride) 50 mls @ 12.5 mls/hr IV Q8 [facility] Last Infusion: 09/13/19 14:00 Dose: Infused Documented by: Vancomycin IV Pharmacy to Dose (1 ea/ Sodium Chloride) 500 mls @ 250 mls/hr IV DAILY PRN; Protocol Vancomycin HCl (Vancomycin) 1,000 mg in 200 mls @ 200 mls/hr IV Q24H [facility] Insulin Human Lispro (Humalog Kwikpen (Bkc)) 0 unit SC ACHS [facility]; Protocol Last Admin: 09/13/19 11:15 Dose: Not Given Documented by: Magnesium Hydroxide (Milk Of Magnesia) 30 ml PO DAILY PRN PRN PRN Reason: Constipation Melatonin (Melatonin) 3 mg PO QHS PRN PRN PRN Reason: INSOMNIA Morphine Sulfate () 2 mg IV Q3H PRN PRN PRN Reason: Pain Score 6-10/10 Nitroglycerin (Nitrostat) 0.4 mg SUBLINGUAL Q5M PRN PRN Reason: CARDIAC/CHEST PAIN Ondansetron HCl (Zofran) 4 mg IV Q8H PRN PRN PRN Reason: NAUSEA/VOMITING Oxycodone HCl (Oxyir) 5 mg PO Q4H PRN PRN PRN Reason: Pain Score 4-5/10 Prochlorperazine Edisylate (Compazine Iv) 5 mg IV Q4H PRN PRN PRN Reason: Breakthrough Nausea/Vomiting Sodium Chloride () 10 - 40 ml IV UD PRN PRN Reason: SALINE FLUSH Tamsulosin HCl (Flomax) 0.4 mg PO QHS [facility] Throat Lozenges (Cepacol Sore Throat Lozenge) 1 lozenge MUCOUS MEM Q2H PRN PRN PRN Reason: Sore Throat/Cough - Past Medical History Past Medical History (Chronic Problems): Chronic Problems Diabetes mellitus, type II (Chronic) PVD (peripheral vascular disease) (Chronic) BPH (benign prostatic hyperplasia) (Chronic) History of nephrectomy, unilateral (Chronic) - Past Surgical History Surgical History: - - Right nephrectomy, cleft lip repair, tonsillectomy, left inguinal hernia repair, right inguinal hernia repair x2, spinal surgery for correction of scoliosis. - Social History Smoking Status: Never smoker Alcohol: None Drugs: None - Family History Maternal History Items: - - Patient notes maternal family history of cancer including thyroid cancer, breast cancer and eventually lung cancer with heavy tobacco use history. Paternal History Items: - - Patient notes a paternal family history of lung disease, unclear specific but notes he had several bouts of pneumonia and breathing issues. Patient Problems: Active and Suspected Problems Sepsis (Acute) Acute respiratory failure with hypoxia (Acute) Pneumonia (Acute) JOSE (acute kidney injury) (Acute) Community acquired pneumonia (Acute) - Physical Exam Vitals/I&O's: Vital Signs Temp Pulse Resp BP Pulse Ox 98.1 F 98 19 H 140/83 H 100 09/13/19 09:00 09/13/19 15:00 09/13/19 15:00 09/13/19 15:00 09/13/19 15:00 Oxygen Flow Rate (L/min) 5 Oxygen Delivery Method Bi-pap Weight: 69.8 kg Body Mass Index (BMI) 25.6 Finger Stick Blood Glucose 227 Intake and Output for Last 24 Hours 09/11/19 09/12/19 09/13/19 23:59 23:59 23:59 Intake Total 3515.50 / 3515.50 Output Total 875 / 875 Balance 2640.50 / 2640.50 General: Alert, Oriented x3 HEENT: Atraumatic Neck: Supple Lungs: - - On BiPAP. B/L rhonchi Cardiovascular: Regular rate, Regular Rhythm, Normal S1, Normal S2 Abdomen: Bowel Sounds Present, Soft, Non Tender, Non-Distended Extremities: No clubbing, No cyanosis, Edema - +1 edema of LE Musculoskeletal: No Tenderness to Palpation of Joints or Extremities Lymphatic: No Cervical, Supraclavicular, or Inguinal Adenopathy Neurological: Cranial nerves II-XII grossly intact, Neuro grossly intact Psych/Mental Status: Normal Affect, Appropriate Microbiology Past 72 Hours 09/13/19 08:25 Sputum, Expectorated/Coughed Gram Stain - Preliminary 09/13/19 03:07 Mucosa - Nasopharyngeal Respiratory Panel (PCR) - Final 09/13/19 08:07 Urine, Clean Catch Streptococcus pneumoniae Antigen (M - Final 09/13/19 08:07 Urine, Clean Catch Legionella Antigen - Final Laboratory Results 09/13/19 01:45: WBC 11.4 H, RBC 5.15, Hgb 15.7, Hct 48.4, MCV 94.0, MCH 30.5, MCHC 32.4, RDW Std Deviation 43.9, RDW Coeff of Morris 12.7, Plt Count 204, MPV 9.6, Immature Gran % (Auto) 0.400, Neut % (Auto) 82.4 H, Lymph % (Auto) 10.7 L, Fleming % (Auto) 5.2, Eos % (Auto) 0.9, Baso % (Auto) 0.4, Absolute Neuts (auto) 9.4 H, Absolute Lymphs (auto) 1.21, Nucleated RBC % 0 09/13/19 01:45: Sodium 139, Potassium 3.9, Chloride 105, Carbon Dioxide 23.0, Anion Gap 11, BUN 27 H, Creatinine 1.65 H, Estim Creat Clear Calc 33.65, Est GFR (MDRD) Af Amer 53 L, Est GFR (MDRD) Non-Af 43 L, BUN/Creatinine Ratio 16.4, Glucose 283 H, Calcium 8.8, Troponin I 0.049 H 09/13/19 01:45: Lactic Acid 4.2 H* 09/13/19 05:18: Sodium 138, Potassium 4.3, Chloride 106, Carbon Dioxide 26.0, Anion Gap 6, BUN 24 H, Creatinine 1.34 H, Estim Creat Clear Calc 41.43, Est GFR (MDRD) Af Amer 67, Est GFR (MDRD) Non-Af 55 L, BUN/Creatinine Ratio 17.9, Glucose 229 H, Calcium 7.7 L, Magnesium 1.9, Troponin I 0.212 H 09/13/19 05:18: WBC 11.2 H, RBC 4.49 L, Hgb 13.8, Hct 41.9, MCV 93.3, MCH 30.7, MCHC 32.9, RDW Std Deviation 43.8, RDW Coeff of Morris 12.8, Plt Count 177, MPV 9.7, Immature Gran % (Auto) 0.500, Neut % (Auto) 87.0 H, Lymph % (Auto) 5.6 L, Fleming % (Auto) 6.7, Eos % (Auto) 0.1, Baso % (Auto) 0.1, Absolute Neuts (auto) 9.8 H, Absolute Lymphs (auto) 0.63 L, Nucleated RBC % 0 09/13/19 06:51: POC Glucose 158 H 09/13/19 07:00: PT 14.5, INR 1.2, APTT 28.6 09/13/19 07:00: Lactic Acid 1.7 09/13/19 08:14: Troponin I 0.351 H 09/13/19 08:17: Specimen Type ART, Sample Site L Radial, pH 7.36, Bicarbonate Actual 22.9, POC Total CO2 24, Base Excess -3 L, O2 Saturation 88 L, O2 % 50, ABG pCO2 40.6, ABG pO2 58 L, O2 Delivery Device Vent Mask, Blood Gas Notified Whom [facility] , Blood Gas Notified Time 816 09/13/19 09:30: MRSA (PCR) Negative 09/13/19 11:13: POC Glucose 132 H Current Medications Acetaminophen (Tylenol) 650 mg PO Q6H PRN PRN PRN Reason: Pain Score 1-3/Temp > 100.7 F Al Hydroxide/Mg Hydroxide (Mylanta Ii) 30 ml PO Q6H PRN PRN PRN Reason: Gastric Burning Albuterol Sulfate (Ventolin Aerosols) 2.5 mg INHALATION Q2H PRN PRN PRN Reason: SOB/Wheezing Albuterol/Ipratropium (Duoneb) 3 ml INHALATION Q4HWA.RT [facility] Last Admin: 09/13/19 14:26 Dose: 3 ml Documented by: Aspirin (Aspirin, Baby) 81 mg PO DAILY@0800 [facility] Enoxaparin Sodium (Lovenox) 70 mg SC Q12 [facility] Last Admin: 09/13/19 11:15 Dose: 70 mg Documented by: Finasteride (Proscar) 5 mg PO DAILY [facility] Last Admin: 09/13/19 12:33 Dose: Not Given Documented by: Glucagon () 1 mg IM .X1 PRN PRN Reason: Hypoglycemia Guaifenesin (Robitussin) 20 ml PO Q4H PRN PRN PRN Reason: COUGH Hydralazine HCl (Apresoline Iv) 10 mg IV Q4H PRN PRN PRN Reason: SBP > 160 Dextrose (Dextrose 10%-Water) 250 mls @ 999 mls/hr IV .Q16M PRN; Protocol PRN Reason: HYPOGLYCEMIA Piperacillin Sod/Tazobactam (Sod 3.375 gm/ Sodium Chloride) 50 mls @ 12.5 mls/hr IV Q8 [facility] Last Infusion: 09/13/19 14:00 Dose: Infused Documented by: Vancomycin IV Pharmacy to Dose (1 ea/ Sodium Chloride) 500 mls @ 250 mls/hr IV DAILY PRN; Protocol Vancomycin HCl (Vancomycin) 1,000 mg in 200 mls @ 200 mls/hr IV Q24H [facility] Insulin Human Lispro (Humalog Kwikpen (Bkc)) 0 unit SC ACHS [facility]; Protocol Last Admin: 09/13/19 11:15 Dose: Not Given Documented by: Magnesium Hydroxide (Milk Of Magnesia) 30 ml PO DAILY PRN PRN PRN Reason: Constipation Melatonin (Melatonin) 3 mg PO QHS PRN PRN PRN Reason: INSOMNIA Morphine Sulfate () 2 mg IV Q3H PRN PRN PRN Reason: Pain Score 6-10/10 Nitroglycerin (Nitrostat) 0.4 mg SUBLINGUAL Q5M PRN PRN Reason: CARDIAC/CHEST PAIN Ondansetron HCl (Zofran) 4 mg IV Q8H PRN PRN PRN Reason: NAUSEA/VOMITING Oxycodone HCl (Oxyir) 5 mg PO Q4H PRN PRN PRN Reason: Pain Score 4-5/10 Prochlorperazine Edisylate (Compazine Iv) 5 mg IV Q4H PRN PRN PRN Reason: Breakthrough Nausea/Vomiting Sodium Chloride () 10 - 40 ml IV UD PRN PRN Reason: SALINE FLUSH Tamsulosin HCl (Flomax) 0.4 mg PO QHS [facility] Throat Lozenges (Cepacol Sore Throat Lozenge) 1 lozenge MUCOUS MEM Q2H PRN PRN PRN Reason: Sore Throat/Cough Assessment/Plan All Active Problems Sepsis (Acute) Acute respiratory failure with hypoxia (Acute) Pneumonia (Acute) JOSE (acute kidney injury) (Acute) Community acquired pneumonia (Acute) 1-JOSE on CKD stage 3. CKD is likely from R nephrectomy due to obstructive uropathy JOSE is likely from prerenal related to dehydration. Cr peaked at 1.65 mgdl and improved to 1.3 mg/dL Discussed with Dr. Bueno the electromechanical equipment assembler on the case, Will d/c IVF for now since his EFis only 35% No need for INFORMATION TECHNOLOGY DIRECTOR Continue urine drain via collins Keep MAP > 65 Avoid ACEI/ARB for now Monitor RPF and UOP 2- BPH: On Flomax and finasteride Continue collins 3- Acute RF due to B/L pneumonia 02 support and Abx ad per ICU 4- NSTEMI: with low EF. Will defer work up and treatment to cardiology service Will continue to follow
[2019-09-13 16:11] LABS: Bedside Glucose 124 mg/dL (70-110)
[2019-09-13] MEDS: Tamsulosin HCl 0.4 MG Capsule PO (21:25)
[2019-09-13 21:41] LABS: Bedside Glucose 158 mg/dL (70-110)
[2019-09-14] VITALS (24 sets, daily range): BP systolic 95–139; BP diastolic 51–84; PULSE 68–122; RESP 12–28; TEMP 36.7–36.9; O2SAT 90–99
[2019-09-14] MEDS: oxyCODONE 5 MG Tablet PO ×2 (00:16→06:09)
[2019-09-14 05:25] LABS: Absolute Lymphocyte Count 1.33 X10^3/uL (0.83-4.51); Absolute Neutrophil Count 5.5 X10^3/uL (2.0-7.7); Basophil# 0.02 X10^3/uL; Basophil% 0.3 % (0-1); Eosinophil# 0.11 X10^3/uL; Eosinophils% 1.4 % (0-5); Hematocrit 40.9 % (40-54); Hemoglobin 12.9 g/dL (13.0-16.5); Lymphocyte # 1.33 X10^3/ul (4.0); Lymphocyte % 17.4 % (19-41); Mean Corp Hgb Conc 31.5 g/dL (32-36); Mean Corpuscular Hgb 29.9 pg (27.0-32.0); Mean Corpuscular Volume 94.7 fL (80-94); Mean Platelet Vol. 9.9 fl (6.2-12.0); Monocyte# 0.64 X10^3/uL; Monocyte% 8.4 % (0-10); NRBC Flagged by Analyzer 0 % (0-5); Neutrophil # 5.52 X10^3/uL (2.7-7.7); Neutrophil % 72.2 % (47-70); Platelet Count 160 K/mm3 (150-450); RBC Distribution Width CV 13.5 % (11.6-14.6); RBC Distribution Width SD 47.2 fl (35.1-43.9); Red Blood Count 4.32 M/mm3 (4.6-6.2); White Blood Count 7.6 K/mm3 (4.4-11.0)
[2019-09-14 05:44] LABS: Anion Gap 5 (5-15); BUN 18 mg/dL (7-18); BUN/Creat Ratio 12.9 RATIO (10-20); Calcium,Total 7.5 mg/dL (8.5-10.1); Chloride 110 mmol/L (98-107); Cholesterol 146 mg/dL (200); Creatinine, Serum 1.39 mg/dL (0.70-1.30); EST Glomerular Filtration Rate 53 mL/min (>60); Est Glom Filt Rate - Afr Amer 64 mL/min (>60); Estimated Creatinine Clearance 39.94 ml/min; Glucose 118 mg/dL (74-106); High Density Lipoprotein 64 mg/dL; Sodium Level 143 mmol/L (136-145); Triglycerides 57 mg/dL; Very Low Density Lipoprotein 11 mg/dL (5-40)
--- NOTE | 2019-09-14 06:18 | PCM.CON.CC ---
Reason for Consult Date of Consultation: 09/14/19 Reason for Consultation: Acute respiratory failure History of Present Illness: The patient is a 74-year-old male, with a history as outlined below, who presented to the emergency department on September 13 with complaints of shortness of breath. The patient also reported that he had been coughing up phlegm due to what he referred to as a recent sinus infection. The patient is a lifelong non-smoker and denies a history of oxygen dependency at his baseline or diagnosis of asthma. The patient denies a history of any previous cardiac disease. On presentation to the emergency department, the patient was noted to be afebrile and hemodynamically stable. He was, nevertheless tachycardic and tachypneic. The patient was hypoxemic requiring a nonrebreather to maintain oxygen saturations. Initial laboratory evaluation revealed a white blood cell count of 11.4. Coagulation profile was within normal limits. Chemistry profile was notable for acute kidney injury with a creatinine of 1.65. Initial lactate was elevated to 4.2. Initial troponin was increased to 0.049. Chest x-ray revealed bibasilar interstitial infiltrates. The patient was given supplemental IV fluid hydration and started on antimicrobial therapy. The patient was initially admitted to the progressive care unit for further management. On admission, the patient was given additional supplemental IV fluids and aerosol treatments. He was maintained on ceftriaxone and azithromycin. Despite the aforementioned, the patient's respiratory status continued to decline. Accordingly, he required transfer to the medical intensive care unit for initiation of BiPAP therapy. Over the last 24 hours, the patient was able to be weaned from continuous BiPAP support. His oxygenation has improved and he is currently maintaining appropriate saturations on 2 L/min. He does report subjective improvement overall in his breathing quality. A surface echocardiogram was completed on September 13 and did reveal evidence of a mildly dilated LV with concentric LVH and an ejection fraction of 20 to 25%. There was severe global hypokinesis of the LV. Pulmonary artery systolic pressure was estimated to be 37 mmHg. Past Medical History Past Medical History (Chronic Problems): Chronic Problems Diabetes mellitus, type II (Chronic) PVD (peripheral vascular disease) (Chronic) BPH (benign prostatic hyperplasia) (Chronic) History of nephrectomy, unilateral (Chronic) Allergies Sulfa (Sulfonamide Antibiotics) Allergy (Verified 09/13/19 01:22) Swelling acetaminophen [From [place]] Adverse Reaction (Verified 09/13/19 01:22) confusion hydrocodone bitartrate [From [place]] Adverse Reaction (Verified 09/13/19 01:22) confusion Home Medications: Ambulatory Orders Medication Instructions Recorded Tamsulosin HCl [Flomax] 0.4 mg PO QHS 04/21/15 Multivit-Min/FA/Lycopen/Lutein 1 each PO DAILY 05/12/15 [Centrum Silver Tablet] Finasteride 1 tab PO DAILY 09/13/19 metFORMIN HCl [Glucophage] 500 mg PO DAILY 09/13/19 Surgical History: - - Right nephrectomy, cleft lip repair, tonsillectomy, left inguinal hernia repair, right inguinal hernia repair x2, spinal surgery for correction of scoliosis. Psychiatric History: No pertinent psych hx Lives: Alone Smoking Status: Never smoker Tobacco Use: Secondhand Alcohol: None Drugs: None - *Family History Maternal History Items: - - Patient notes maternal family history of cancer including thyroid cancer, breast cancer and eventually lung cancer with heavy tobacco use history. Paternal History Items: - - Patient notes a paternal family history of lung disease, unclear specific but notes he had several bouts of pneumonia and breathing issues. Review of Systems Constitutional: Reports: Malaise, Weakness Eyes: Denies: Blurred vision, Double vision HEENT: Denies: Head Aches, Sinus Congestion, Sinus Drainage Cardiovascular: Denies: Chest Pain, Palpitations Respiratory: Reports: Cough, Shortness of Breath Gastrointestinal: Denies: Abdominal Pain, Nausea, Vomiting Genitourinary: Denies: Dysuria Musculoskeletal: Denies: Joint Pain, Joint Tenderness Skin: Denies: Rash, Wounds Neurological: Denies: Numbness, Tingling, Focal weakness Psychiatric: Denies: Anxiety, Depression, Homicidal Ideations, Suicidal Ideations Hematologic/ Lymphatic: Reports: Anemia Patient Problems: Active and Suspected Problems Sepsis (Acute) Acute respiratory failure with hypoxia (Acute) Pneumonia (Acute) JOSE (acute kidney injury) (Acute) Community acquired pneumonia (Acute) Objective: The patient's most recent lab work, culture data and imaging studies have all been personally reviewed. MRSA screen was negative. Strep and urine Legionella antigens were negative. Respiratory viral panel was negative. Sputum culture is pending. - Physical Exam Vitals/I&O's: Vital Signs Temp Pulse Resp BP Pulse Ox 98.1 F 99 20 H 120/80 96 09/14/19 02:00 09/14/19 05:00 09/14/19 05:00 09/14/19 05:00 09/14/19 05:00 Oxygen Flow Rate (L/min) 2 Oxygen Delivery Method Nasal Cannula Weight: 155 lb 3.287 oz Body Mass Index (BMI) 25.6 Finger Stick Blood Glucose 227 Intake and Output for Last 24 Hours 09/12/19 09/13/19 09/14/19 23:59 23:59 23:59 Intake Total 4437.17 / 4437.17 50 / 50 Output Total 1675 / 1675 Balance 2762.17 / 2762.17 50 / 50 General: Alert, Oriented x3, Cooperative, No apparent distress HEENT: Atraumatic, PERRLA, Normocephalic Oral: No Gingival or Mucosal Lesions/ Ulcerations Neck: Supple, No Nodes, Trachea Midline Lungs: No rhonchi, No wheeze, Rales Cardiovascular: Regular rate, Regular Rhythm, Normal S1, Normal S2 Abdomen: Bowel Sounds Present, Soft, Non Tender Extremities: No clubbing, No cyanosis, No edema Skin: No breakdown Musculoskeletal: No Tenderness to Palpation of Joints or Extremities, No Muscle Wasting Lymphatic: No Cervical, Supraclavicular, or Inguinal Adenopathy Neurological: Cranial nerves II-XII grossly intact, Neuro grossly intact Psych/Mental Status: Alert and oriented to time, place, person, mood and affect Labs (Last 48 Hours) 09/13/19 09/13/19 09/13/19 01:45 01:45 01:45 WBC 11.4 H RBC 5.15 Hgb 15.7 Hct 48.4 MCV 94.0 MCH 30.5 MCHC 32.4 RDW Std Deviation 43.9 RDW Coeff of [place] 12.7 Plt Count 204 MPV 9.6 Immature Gran % (Auto) 0.400 Neut % (Auto) 82.4 H Lymph % (Auto) 10.7 L Cooper % (Auto) 5.2 Eos % (Auto) 0.9 Baso % (Auto) 0.4 Absolute Neuts (auto) 9.4 H Absolute Lymphs (auto) 1.21 Nucleated RBC % 0 PT INR APTT Specimen Type Sample Site pH Bicarbonate Actual POC Total CO2 Base Excess O2 Saturation O2 % ABG pCO2 ABG pO2 O2 Delivery Device Blood Gas Notified Whom Blood Gas Notified Time Sodium 139 Potassium 3.9 Chloride 105 Carbon Dioxide 23.0 Anion Gap 11 BUN 27 H Creatinine 1.65 H Estim Creat Clear Calc 33.65 Est GFR (MDRD) Af Amer 53 L Est GFR (MDRD) Non-Af 43 L BUN/Creatinine Ratio 16.4 Glucose 283 H Lactic Acid 4.2 H* Calcium 8.8 Magnesium Troponin I 0.049 H Triglycerides Cholesterol LDL Cholesterol VLDL Cholesterol HDL Cholesterol MRSA (PCR) POC Glucose 09/13/19 09/13/19 09/13/19 05:18 05:18 06:51 WBC 11.2 H RBC 4.49 L Hgb 13.8 Hct 41.9 MCV 93.3 MCH 30.7 MCHC 32.9 RDW Std Deviation 43.8 RDW Coeff of [place] 12.8 Plt Count 177 MPV 9.7 Immature Gran % (Auto) 0.500 Neut % (Auto) 87.0 H Lymph % (Auto) 5.6 L Cooper % (Auto) 6.7 Eos % (Auto) 0.1 Baso % (Auto) 0.1 Absolute Neuts (auto) 9.8 H Absolute Lymphs (auto) 0.63 L Nucleated RBC % 0 PT INR APTT Specimen Type Sample Site pH Bicarbonate Actual POC Total CO2 Base Excess O2 Saturation O2 % ABG pCO2 ABG pO2 O2 Delivery Device Blood Gas Notified Whom Blood Gas Notified Time Sodium 138 Potassium 4.3 Chloride 106 Carbon Dioxide 26.0 Anion Gap 6 BUN 24 H Creatinine 1.34 H Estim Creat Clear Calc 41.43 Est GFR (MDRD) Af Amer 67 Est GFR (MDRD) Non-Af 55 L BUN/Creatinine Ratio 17.9 Glucose 229 H Lactic Acid Calcium 7.7 L Magnesium 1.9 Troponin I 0.212 H Triglycerides Cholesterol LDL Cholesterol VLDL Cholesterol HDL Cholesterol MRSA (PCR) POC Glucose 158 H 09/13/19 09/13/19 09/13/19 07:00 07:00 08:14 WBC RBC Hgb Hct MCV MCH MCHC RDW Std Deviation RDW Coeff of [place] Plt Count MPV Immature Gran % (Auto) Neut % (Auto) Lymph % (Auto) Cooper % (Auto) Eos % (Auto) Baso % (Auto) Absolute Neuts (auto) Absolute Lymphs (auto) Nucleated RBC % PT 14.5 INR 1.2 APTT 28.6 Specimen Type Sample Site pH Bicarbonate Actual POC Total CO2 Base Excess O2 Saturation O2 % ABG pCO2 ABG pO2 O2 Delivery Device Blood Gas Notified Whom Blood Gas Notified Time Sodium Potassium Chloride Carbon Dioxide Anion Gap BUN Creatinine Estim Creat Clear Calc Est GFR (MDRD) Af Amer Est GFR (MDRD) Non-Af BUN/Creatinine Ratio Glucose Lactic Acid 1.7 Calcium Magnesium Troponin I 0.351 H Triglycerides Cholesterol LDL Cholesterol VLDL Cholesterol HDL Cholesterol MRSA (PCR) POC Glucose 09/13/19 09/13/19 09/13/19 08:17 09:30 11:13 WBC RBC Hgb Hct MCV MCH MCHC RDW Std Deviation RDW Coeff of [place] Plt Count MPV Immature Gran % (Auto) Neut % (Auto) Lymph % (Auto) Cooper % (Auto) Eos % (Auto) Baso % (Auto) Absolute Neuts (auto) Absolute Lymphs (auto) Nucleated RBC % PT INR APTT Specimen Type ART Sample Site L Radial pH 7.36 Bicarbonate Actual 22.9 POC Total CO2 24 Base Excess -3 L O2 Saturation 88 L O2 % 50 ABG pCO2 40.6 ABG pO2 58 L O2 Delivery Device Vent Mask Blood Gas Notified Whom [facility] Blood Gas Notified Time 816 Sodium Potassium Chloride Carbon Dioxide Anion Gap BUN Creatinine Estim Creat Clear Calc Est GFR (MDRD) Af Amer Est GFR (MDRD) Non-Af BUN/Creatinine Ratio Glucose Lactic Acid Calcium Magnesium Troponin I Triglycerides Cholesterol LDL Cholesterol VLDL Cholesterol HDL Cholesterol MRSA (PCR) Negative POC Glucose 132 H 09/13/19 09/13/19 09/14/19 16:01 21:24 05:05 WBC RBC Hgb Hct MCV MCH MCHC RDW Std Deviation RDW Coeff of [place] Plt Count MPV Immature Gran % (Auto) Neut % (Auto) Lymph % (Auto) Cooper % (Auto) Eos % (Auto) Baso % (Auto) Absolute Neuts (auto) Absolute Lymphs (auto) Nucleated RBC % PT INR APTT Specimen Type Sample Site pH Bicarbonate Actual POC Total CO2 Base Excess O2 Saturation O2 % ABG pCO2 ABG pO2 O2 Delivery Device Blood Gas Notified Whom Blood Gas Notified Time Sodium 143 Potassium 4.0 Chloride 110 H Carbon Dioxide 28.0 Anion Gap 5 BUN 18 Creatinine 1.39 H Estim Creat Clear Calc 39.94 Est GFR (MDRD) Af Amer 64 Est GFR (MDRD) Non-Af 53 L BUN/Creatinine Ratio 12.9 Glucose 118 H Lactic Acid Calcium 7.5 L Magnesium Troponin I Triglycerides 57 Cholesterol 146 LDL Cholesterol 71 VLDL Cholesterol 11 HDL Cholesterol 64 MRSA (PCR) POC Glucose 124 H 158 H 09/14/19 05:05 WBC 7.6 RBC 4.32 L Hgb 12.9 L Hct 40.9 MCV 94.7 H MCH 29.9 MCHC 31.5 L RDW Std Deviation 47.2 H RDW Coeff of [place] 13.5 Plt Count 160 MPV 9.9 Immature Gran % (Auto) 0.300 Neut % (Auto) 72.2 H Lymph % (Auto) 17.4 L Cooper % (Auto) 8.4 Eos % (Auto) 1.4 Baso % (Auto) 0.3 Absolute Neuts (auto) 5.5 Absolute Lymphs (auto) 1.33 Nucleated RBC % 0 PT INR APTT Specimen Type Sample Site pH Bicarbonate Actual POC Total CO2 Base Excess O2 Saturation O2 % ABG pCO2 ABG pO2 O2 Delivery Device Blood Gas Notified Whom Blood Gas Notified Time Sodium Potassium Chloride Carbon Dioxide Anion Gap BUN Creatinine Estim Creat Clear Calc Est GFR (MDRD) Af Amer Est GFR (MDRD) Non-Af BUN/Creatinine Ratio Glucose Lactic Acid Calcium Magnesium Troponin I Triglycerides Cholesterol LDL Cholesterol VLDL Cholesterol HDL Cholesterol MRSA (PCR) POC Glucose Microbiology 09/13/19 08:25 Sputum, Expectorated/Coughed Gram Stain - Preliminary 09/13/19 03:07 Mucosa - Nasopharyngeal Respiratory Panel (PCR) - Final 09/13/19 08:07 Urine, Clean Catch Streptococcus pneumoniae Antigen (M - Final 09/13/19 08:07 Urine, Clean Catch Legionella Antigen - Final Clinical Impression(s) from Imaging Studies Chest X-Ray 09/13/19 01:46 IMPRESSION: Bilateral lower lobe pneumonia. Electronically Signed: Paris Espinoza MD at 2:32 EST , Service support , Current Medications Acetaminophen (Tylenol) 650 mg PO Q6H PRN PRN PRN Reason: Pain Score 1-3/Temp > 100.7 F Al Hydroxide/Mg Hydroxide (Mylanta Ii) 30 ml PO Q6H PRN PRN PRN Reason: Gastric Burning Albuterol Sulfate (Ventolin Aerosols) 2.5 mg INHALATION Q2H PRN PRN PRN Reason: SOB/Wheezing Albuterol/Ipratropium (Duoneb) 3 ml INHALATION Q4HWA.RT [facility] Last Admin: 09/13/19 23:29 Dose: 3 ml Documented by: Aspirin (Aspirin, Baby) 81 mg PO DAILY@0800 [facility] Enoxaparin Sodium (Lovenox) 70 mg SC Q12 [facility] Last Admin: 09/13/19 21:26 Dose: Not Given Documented by: Finasteride (Proscar) 5 mg PO DAILY [facility] Last Admin: 09/13/19 12:33 Dose: Not Given Documented by: Glucagon () 1 mg IM .X1 PRN PRN Reason: Hypoglycemia Guaifenesin (Robitussin) 20 ml PO Q4H PRN PRN PRN Reason: COUGH Hydralazine HCl (Apresoline Iv) 10 mg IV Q4H PRN PRN PRN Reason: SBP > 160 Dextrose (Dextrose 10%-Water) 250 mls @ 999 mls/hr IV .Q16M PRN; Protocol PRN Reason: HYPOGLYCEMIA Piperacillin Sod/Tazobactam (Sod 3.375 gm/ Sodium Chloride) 50 mls @ 12.5 mls/hr IV Q8 [facility] Last Admin: 09/14/19 05:06 Dose: 12.5 mls/hr Documented by: Vancomycin IV Pharmacy to Dose (1 ea/ Sodium Chloride) 500 mls @ 250 mls/hr IV DAILY PRN; Protocol Vancomycin HCl (Vancomycin) 1,000 mg in 200 mls @ 200 mls/hr IV Q24H [facility] Insulin Human Lispro (Humalog Kwikpen (Bkc)) 0 unit SC ACHS [facility]; Protocol Last Admin: 09/14/19 06:06 Dose: Not Given Documented by: Magnesium Hydroxide (Milk Of Magnesia) 30 ml PO DAILY PRN PRN PRN Reason: Constipation Melatonin (Melatonin) 3 mg PO QHS PRN PRN PRN Reason: INSOMNIA Morphine Sulfate () 2 mg IV Q3H PRN PRN PRN Reason: Pain Score 6-10/10 Nitroglycerin (Nitrostat) 0.4 mg SUBLINGUAL Q5M PRN PRN Reason: CARDIAC/CHEST PAIN Ondansetron HCl (Zofran) 4 mg IV Q8H PRN PRN PRN Reason: NAUSEA/VOMITING Oxycodone HCl (Oxyir) 5 mg PO Q4H PRN PRN PRN Reason: Pain Score 4-5/10 Last Admin: 09/14/19 06:09 Dose: 5 mg Documented by: Prochlorperazine Edisylate (Compazine Iv) 5 mg IV Q4H PRN PRN PRN Reason: Breakthrough Nausea/Vomiting Sodium Chloride () 10 - 40 ml IV UD PRN PRN Reason: SALINE FLUSH Tamsulosin HCl (Flomax) 0.4 mg PO QHS [facility] Last Admin: 09/13/19 21:25 Dose: 0.4 mg Documented by: Throat Lozenges (Cepacol Sore Throat Lozenge) 1 lozenge MUCOUS MEM Q2H PRN PRN PRN Reason: Sore Throat/Cough Assessment/Plan Active and Suspected Problems Sepsis (Acute) Acute respiratory failure with hypoxia (Acute) Pneumonia (Acute) JOSE (acute kidney injury) (Acute) Community acquired pneumonia (Acute) RECOMMENDATIONS: 1. Given negative MRSA screen, okay to discontinue vancomycin. Continue Zosyn for now, pending finalized infectious work-up. 2. Wean supplemental oxygen to maintain saturations at or above 90%. 3. Check BNP level. 4. Continue appropriate ICU prophylaxis. 5. The patient is medically stable for transfer out of the intensive care unit. IMPRESSIONS: 1. Severe sepsis secondary to presumed community-acquired pneumonia The patient has responded appropriately to the use of broad-spectrum antimicrobials and gentle IV fluid hydration. He remains hemodynamically stable. Given negative MRSA screen, vancomycin can be discontinued from my perspective. The patient will be continued on Zosyn, pending finalized infectious work-up. 2. Acute hypoxemic respiratory failure The patient did have bilateral interstitial infiltrates noted on chest x-ray on presentation to the hospital. He remains on empiric antimicrobial therapy for presumptive community-acquired pneumonia. In addition, he was recently identified as having new onset systolic heart failure, raising the possibility that a component of the findings noted on chest x-ray may have been pulmonary edema. Recommend checking BNP level. The patient has been weaned from BiPAP therapy at this time and is on minimal supplemental O2. Recommend continuing to wean supplemental oxygen to maintain saturations at or above 90%. Encourage incentive spirometer use and mobilize patient as tolerated. 3. Acute kidney injury Improved. Continue current supportive measures. Will monitor urine output. No current indication for renal replacement therapy. 4. Indeterminate troponin/newly identified systolic heart failure Continue primary medical management per cardiology recommendations. 5. History of obstructive uropathy/diabetes mellitus/BPH Complicates care, management, recovery and prognosis. This note was generated with [employer] dictation software. It may contain incorrect words, spelling, and punctuation that were not noted in checking the note before signing. Code Visit Inpatient E&M: 99400 Init Hosp L3
[2019-09-14] MEDS: Ipratropium/Albuterol Sulfate 3 ML AMPUL.NEB INHALATION ×5 (06:26→23:16)
--- NOTE | 2019-09-14 07:43 | PN_ITS ---
Patient Problems: Active and Suspected Problems Sepsis (Acute) Acute respiratory failure with hypoxia (Acute) Pneumonia (Acute) JOSE (acute kidney injury) (Acute) Community acquired pneumonia (Acute) Reason for Visit: Acute hypoxic respiratory failure secondary to bilateral pneumonia. Objective: Overall, respiratory status is much improved. Patient was on BiPAP yesterday but could not tolerate at night. No fever during hospital stay last 24 hours. Heart rate is controlled. Hemodynamically blood pressure is maintained Patient was seen by glaciologist, cell tuber hand and carpet technician. Currently pulse ox 94% on 2 L of oxygen respiratory rate 14. Vitals/I&O's: Vital Signs Temp Pulse Resp BP Pulse Ox 98.1 F 72 14 115/62 94 09/14/19 02:00 09/14/19 07:00 09/14/19 07:00 09/14/19 07:00 09/14/19 07:00 Oxygen Flow Rate (L/min) 2 Oxygen Delivery Method Nasal Cannula Weight: 155 lb 3.287 oz Body Mass Index (BMI) 25.6 Finger Stick Blood Glucose 227 Intake and Output for Last 24 Hours 09/12/19 09/13/19 09/14/19 23:59 23:59 23:59 Intake Total 4437.17 / 4437.17 90 / 90 Output Total 1675 / 1675 225 / 225 Balance 2762.17 / 2762.17 -135 / -135 General: Alert, Oriented x3, Cooperative HEENT: Atraumatic, PERRLA, EOMI, Normocephalic Neck: Supple, No JVD, Negative Carotid Bruits Lungs: Diminished - Air entry diminished in bilateral lung bases. Egophony and whispering pectoriloquy present, Rales - Bilateral lower lobe coarse rales present Cardiovascular: Regular rate, Regular Rhythm, Normal S1, Normal S2, No murmurs Abdomen: Bowel Sounds Present, Soft, Non Tender, Non-Distended Extremities: Capillary Refill Less than 3 Seconds, Edema Skin: No rashes, No breakdown Musculoskeletal: No Tenderness to Palpation of Joints or Extremities, Arthritic Changes Neurological: Cranial nerves II-XII grossly intact Psych/Mental Status: Normal Affect, Appropriate Microbiology Past 72 Hours 09/13/19 08:25 Sputum, Expectorated/Coughed Gram Stain - Preliminary 09/13/19 03:07 Mucosa - Nasopharyngeal Respiratory Panel (PCR) - Final 09/13/19 08:07 Urine, Clean Catch Streptococcus pneumoniae Antigen (M - Final 09/13/19 08:07 Urine, Clean Catch Legionella Antigen - Final Laboratory Results 09/13/19 07:00: PT 14.5, INR 1.2, APTT 28.6 09/13/19 07:00: Lactic Acid 1.7 09/13/19 08:14: Troponin I 0.351 H 09/13/19 08:17: Specimen Type ART, Sample Site L Radial, pH 7.36, Bicarbonate Actual 22.9, POC Total CO2 24, Base Excess -3 L, O2 Saturation 88 L, O2 % 50, ABG pCO2 40.6, ABG pO2 58 L, O2 Delivery Device Vent Mask, Blood Gas Notified Whom VIKKI JOYA, Blood Gas Notified Time 816 09/13/19 09:30: MRSA (PCR) Negative 09/13/19 11:13: POC Glucose 132 H 09/13/19 16:01: POC Glucose 124 H 09/13/19 21:24: POC Glucose 158 H 09/14/19 05:05: Sodium 143, Potassium 4.0, Chloride 110 H, Carbon Dioxide 28.0, Anion Gap 5, BUN 18, Creatinine 1.39 H, Estim Creat Clear Calc 39.94, Est GFR (MDRD) Af Amer 64, Est GFR (MDRD) Non-Af 53 L, BUN/Creatinine Ratio 12.9, Glucose 118 H, Calcium 7.5 L, Triglycerides 57, Cholesterol 146, LDL Cholesterol 71, VLDL Cholesterol 11, HDL Cholesterol 64 09/14/19 05:05: WBC 7.6, RBC 4.32 L, Hgb 12.9 L, Hct 40.9, MCV 94.7 H, MCH 29.9, MCHC 31.5 L, RDW Std Deviation 47.2 H, RDW Coeff of Morris 13.5, Plt Count 160, MPV 9.9, Immature Gran % (Auto) 0.300, Neut % (Auto) 72.2 H, Lymph % (Auto) 17.4 L, [place] % (Auto) 8.4, Eos % (Auto) 1.4, Baso % (Auto) 0.3, Absolute Neuts (auto) 5.5, Absolute Lymphs (auto) 1.33, Nucleated RBC % 0 Current Medications Acetaminophen (Tylenol) 650 mg PO Q6H PRN PRN PRN Reason: Pain Score 1-3/Temp > 100.7 F Al Hydroxide/Mg Hydroxide (Mylanta Ii) 30 ml PO Q6H PRN PRN PRN Reason: Gastric Burning Albuterol Sulfate (Ventolin Aerosols) 2.5 mg INHALATION Q2H PRN PRN PRN Reason: SOB/Wheezing Albuterol/Ipratropium (Duoneb) 3 ml INHALATION Q4HWA.RT [facility] Last Admin: 09/14/19 06:26 Dose: 3 ml Documented by: Aspirin (Aspirin, Baby) 81 mg PO DAILY@0800 [facility] Enoxaparin Sodium (Lovenox) 70 mg SC Q12 [facility] Last Admin: 09/13/19 21:26 Dose: Not Given Documented by: Finasteride (Proscar) 5 mg PO DAILY [facility] Last Admin: 09/13/19 12:33 Dose: Not Given Documented by: Glucagon () 1 mg IM .X1 PRN PRN Reason: Hypoglycemia Guaifenesin (Robitussin) 20 ml PO Q4H PRN PRN PRN Reason: COUGH Hydralazine HCl (Apresoline Iv) 10 mg IV Q4H PRN PRN PRN Reason: SBP > 160 Dextrose (Dextrose 10%-Water) 250 mls @ 999 mls/hr IV .Q16M PRN; Protocol PRN Reason: HYPOGLYCEMIA Piperacillin Sod/Tazobactam (Sod 3.375 gm/ Sodium Chloride) 50 mls @ 12.5 mls/hr IV Q8 [facility] Last Admin: 09/14/19 05:06 Dose: 12.5 mls/hr Documented by: Insulin Human Lispro (Humalog Kwikpen (Bkc)) 0 unit SC ACHS [facility]; Protocol Last Admin: 09/14/19 06:06 Dose: Not Given Documented by: Magnesium Hydroxide (Milk Of Magnesia) 30 ml PO DAILY PRN PRN PRN Reason: Constipation Nitroglycerin (Nitrostat) 0.4 mg SUBLINGUAL Q5M PRN PRN Reason: CARDIAC/CHEST PAIN Ondansetron HCl (Zofran) 4 mg IV Q8H PRN PRN PRN Reason: NAUSEA/VOMITING Prochlorperazine Edisylate (Compazine Iv) 5 mg IV Q4H PRN PRN PRN Reason: Breakthrough Nausea/Vomiting Sodium Chloride () 10 - 40 ml IV UD PRN PRN Reason: SALINE FLUSH Tamsulosin HCl (Flomax) 0.4 mg PO QHS [facility] Last Admin: 09/13/19 21:25 Dose: 0.4 mg Documented by: Throat Lozenges (Cepacol Sore Throat Lozenge) 1 lozenge MUCOUS MEM Q2H PRN PRN PRN Reason: Sore Throat/Cough STROKE Vital Signs/Narrative: Vital Signs Pulse Resp BP Pulse Ox 09/14/19 07:00 72 14 115/62 94 09/14/19 06:28 98 09/14/19 06:27 98 09/14/19 06:26 103 H 16 09/14/19 06:00 74 16 112/66 97 09/14/19 05:00 99 20 H 120/80 96 09/14/19 04:00 68 13 106/58 L 98 Medical Necessity - Tobacco Use Smoking Status: Never smoker Tobacco Use: Secondhand Assessment/Plan All Active Problems Sepsis (Acute) Acute respiratory failure with hypoxia (Acute) Pneumonia (Acute) JOSE (acute kidney injury) (Acute) Community acquired pneumonia (Acute) The patient is a 74 y/o M Congenital Scoliosis, 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 1. Septic shock (tachycardia, tachypnea, hypoxia, lactic acidosis lactic acid 4.2) and severe acute Hypoxic Respiratory Failure secondary to Community Acquired Pneumonia: Patient is being transferred to ICU from PCU on BiPAP. Patient blood pressure is still maintained, 132/78. Patient had normal saline 2.5 L bolus but no urine output. Operator And Truck Driver consult. Antibiotic broadened to vancomycin and Zosyn. Discontinue Rocephin. Severe sepsis/septic shock protocol followed. Pneumonia work-up pending. Follow-up blood cultures, urinary antigens, respiratory panel and Gram stain of the sputum culture. ABG reviewed. 7.3640/58 on 50% FiO2 Ventimask with acute hypoxic respiratory failure with increased Aa gradient. 09/14/2019: Patient is being downgraded to PCU with improvement of respiratory status. IV fluid was discontinued yesterday evening. Patient has history of chronic systolic heart failure with EF 25%.. MRSA nasal screen negative. Vancomycin discontinued. Respiratory panel negative. Urinary antigens for Legionella and Streptococcus are negative. Gram stain of sputum culture shows 4+ gram-positive cocci, 1+ gram-negative rods and 2+ gram-positive rods. 2. Severe acute hypoxic respiratory failure secondary to bilateral lower lobes pneumonia: Chest x-ray independently reviewed and shows right middle lobe right lower lobe and left lower lobe infiltrate/consolidation consistent with p neumonia. 09/14: Improvement. On 2 L of oxygen through nasal cannula. BiPAP, rescue as needed first respiratory distress 3. Acute kidney injury with history of right nonfunctioning kidney secondary to UPJ obstruction status post right nephrectomy: At baseline creatinine runs around 1.25. Admitted with 1.65, currently 1.34. Current nephrology consulted. Rollins catheter inserted. Monitor strict input and output, daily kidney function and electrolytes. Acute kidney injury possible secondary to prerenal/sepsis and ATN Third troponin 0 0.351. 09/14: Total urine output 675 mL on 09/13. Today negative balance 135 mL but overall +2.6 L since admission. 4. Indeterminate cardiac enzyme, most likely secondary to increased cardiac demand/sepsis: EKG in ED sinus tachycardia without acute evidence of ischemia Serial troponin 0 0.04, increased to 0.21. Patient denies chest pain but has chest congestion. [facility] Consultant is consulted. Continue ASA, NG, morphine. Patient does not have chest pain therefore is mainly secondary to increased cardiac demand. Heparin drip changed to Lovenox with creatinine clearance. Discussed with glaciologist. Patient needs first stabilization of pulmonary status and may need cardiac cath late next week. 09/14: 2D echo shows EF of 20 to 25% with global hypokinesis. Discussed with glaciologist. EKG shows sinus tachycardia with ST segment changes in anterior precordial lead, suggesting ischemia. proBNP ordered. Diuretic to maintain euvolemia. Recommended left heart cath once respiratory status is stabilized. Recommended small dose of Entresto and potassium sparing diuretic once renal function is stabilized. Lipid profile within normal limit, LDL 71, HDL 64, TG 57. 5. Diabetes mellitus type II: Hold oral home regimen, ADA diet, accu checks w/ ISS. 1/19: Cozaar reasonably controlled. 6. BPH: We will continue patient home Flomax and Proscar regimen. 6. DVT prophylaxis: SCDs, heparin. Total time of the visit including total time spent in counseling or coordination of care, (more than 50% of the total time, spent in obtaining medical information from nurses and other ancillary care providers), discussion with consultants, providing information to patient along with review of labs and imaging is 40 minutes Microbiology Past 72 Hours 09/13/19 08:25 Sputum, Expectorated/Coughed Gram Stain - Preliminary 09/13/19 03:07 Mucosa - Nasopharyngeal Respiratory Panel (PCR) - Final 09/13/19 08:07 Urine, Clean Catch Streptococcus pneumoniae Antigen (M - Final 09/13/19 08:07 Urine, Clean Catch Legionella Antigen - Final Laboratory Results 09/13/19 07:00: PT 14.5, INR 1.2, APTT 28.6 09/13/19 08:14: Troponin I 0.351 H 09/13/19 08:17: Specimen Type ART, Sample Site L Radial, pH 7.36, Bicarbonate Actual 22.9, POC Total CO2 24, Base Excess -3 L, O2 Saturation 88 L, O2 % 50, ABG pCO2 40.6, ABG pO2 58 L, O2 Delivery Device Vent Mask, Blood Gas Notified Whom [facility] , Blood Gas Notified Time 816 09/13/19 09:30: MRSA (PCR) Negative 09/13/19 11:13: POC Glucose 132 H 09/13/19 16:01: POC Glucose 124 H 09/13/19 21:24: POC Glucose 158 H 09/14/19 05:05: Sodium 143, Potassium 4.0, Chloride 110 H, Carbon Dioxide 28.0, Anion Gap 5, BUN 18, Creatinine 1.39 H, Estim Creat Clear Calc 39.94, Est GFR (MDRD) Af Amer 64, Est GFR (MDRD) Non-Af 53 L, BUN/Creatinine Ratio 12.9, Glucose 118 H, Calcium 7.5 L, Triglycerides 57, Cholesterol 146, LDL Cholesterol 71, VLDL Cholesterol 11, HDL Cholesterol 64 09/14/19 05:05: WBC 7.6, RBC 4.32 L, Hgb 12.9 L, Hct 40.9, MCV 94.7 H, MCH 29.9, MCHC 31.5 L, RDW Std Deviation 47.2 H, RDW Coeff of Morris 13.5, Plt Count 160, MPV 9.9, Immature Gran % (Auto) 0.300, Neut % (Auto) 72.2 H, Lymph % (Auto) 17.4 L, [place] % (Auto) 8.4, Eos % (Auto) 1.4, Baso % (Auto) 0.3, Absolute Neuts (auto) 5.5, Absolute Lymphs (auto) 1.33, Nucleated RBC % 0 Code Visit Inpatient E&M: 52846 Subs Hosp L3
[2019-09-14] MEDS: Aspirin 81 MG TAB.CHEW PO (09:57)
[2019-09-14] MEDS: Finasteride 5 MG Tablet PO (09:57)
[2019-09-14 10:41] LABS: BNP,B-Type NATRIURETIC PEPTIDE 350.8 pg/mL (0-100)
--- NOTE | 2019-09-14 11:00 | PN.CARD_ITS ---
Subjectve: Patient is feeling much better denies any symptoms of chest discomfort he is remains on oxygen via nasal cannula. He is sitting in a chair and conversing with his family numbers who came to visit him this morning Objective: Vital Signs Temp Pulse Resp BP Pulse Ox 98.5 F 73 19 H 118/55 L 96 09/14/19 08:00 09/14/19 08:00 09/14/19 08:00 09/14/19 08:00 09/14/19 08:00 Oxygen Flow Rate (L/min) 1 Oxygen Delivery Method Nasal Cannula Weight: 155 lb 3.287 oz Body Mass Index (BMI) 25.6 Finger Stick Blood Glucose 227 Intake and Output for Last 24 Hours 09/12/19 09/13/19 09/14/19 23:59 23:59 23:59 Intake Total 4437.17 / 4437.17 140 / 140 Output Total 1675 / 1675 225 / 225 Balance 2762.17 / 2762.17 -85 / -85 General: Healthy Appearing, Awake, Alert, Oriented x 3 HEENT: Atraumatic Oral: Moist Mucosa Lungs: Rhonchi - Bilateral rhonchi with coarse crepitations over the bases posteriorly Cardiovascular: Regular Rhythm Abdomen: Bowel Sounds Present Extremities: No edema 09/14/19 05:05: Sodium 143, Potassium 4.0, Chloride 110 H, Carbon Dioxide 28.0, Anion Gap 5, BUN 18, Creatinine 1.39 H, Est GFR (MDRD) Af Amer 64, Est GFR (MDRD) Non-Af 53 L, BUN/Creatinine Ratio 12.9, Glucose 118 H, Calcium 7.5 L, Triglycerides 57, Cholesterol 146, LDL Cholesterol 71, VLDL Cholesterol 11, HDL Cholesterol 64 09/14/19 05:05: WBC 7.6, RBC 4.32 L, Hgb 12.9 L, Hct 40.9, MCV 94.7 H, MCH 29.9, MCHC 31.5 L, Plt Count 160, MPV 9.9, Immature Gran % (Auto) 0.300, Neut % (Auto) 72.2 H, Lymph % (Auto) 17.4 L, [place] % (Auto) 8.4, Eos % (Auto) 1.4, Baso % (Auto) 0.3, Absolute Neuts (auto) 5.5, Nucleated RBC % 0 09/14/19 05:05: B-Natriuretic Peptide 350.8 H Rhythm: EKG: ECHO: Stress Test: Cardiac Cath: PCI: CT Surgery: Holter monitor: EPS: PPM: CXR: Chest CT Scan: Medical Necessity - Tobacco Use Smoking Status: Never smoker Tobacco Use: Secondhand Assessment/Plan Improving Respiratory failure secondary to bilateral pneumonia and remains on BiPAP and IV antibiotics broad-spectrum pending blood cultures and sputum cultures 2. Chronic LV systolic dysfunction will consider evaluation of cardiomyopathy prior to hospital discharge over the next 48hr by [facility] and possible adhoc angioplasty if indicated. pt and famiy were informed. 3. Troponins in light of mildly decreased renal insufficiency indicating acute on chronic kidney disease underlying diabetes mellitus and cardiomyopathy I suspect patient has probably small non-ST elevation myocardial infarction possibly from demand ischemia from hypoxemia secondary to pneumonia. patient was initiated on low molecular weight heparin and this will be continued at least for next 48hrs as his creatinine improved from 1.6 on presentation to 1.3 on today's labs. Will hold off on giving IV fluids to avoid fluid overload.LMWH was on hold this am as pt developed hematuria possibly from collins induced trauma. Collins was d/sally. 4. Status post nephrectomy second obstructive uropathy in the past 5. Type II this is addressed by hospitalist services 6. Prostatic Hypertrophy for which he remains on max and Proscar
[2019-09-14] MEDS: Insulin Lispro 100 UNIT/ML INSULN.PEN SC ×3 (12:28→22:02)
[2019-09-14 12:35] LABS: Bedside Glucose 239 mg/dL (70-110)
[2019-09-14] MEDS: 0.9% Saline Lock 10 ML Syringe IV (14:55)
[2019-09-14 16:36] LABS: Bedside Glucose 160 mg/dL (70-110)
--- NOTE | 2019-09-14 16:46 | PN.RENAL_ITS ---
Patient Problems: Active and Suspected Problems Sepsis (Acute) Acute respiratory failure with hypoxia (Acute) Pneumonia (Acute) JOSE (acute kidney injury) (Acute) Community acquired pneumonia (Acute) Subjective: Pt said breathing is better . on NC No nausea No vomiting - Physical Exam Vitals/I&O's: Vital Signs Temp Pulse Resp BP Pulse Ox 98.3 F 112 H 20 H 139/77 H 90 09/14/19 14:00 09/14/19 15:31 09/14/19 15:31 09/14/19 14:00 09/14/19 15:35 Oxygen Flow Rate (L/min) 1 Oxygen Delivery Method Room Air Weight: 70.4 kg Body Mass Index (BMI) 25.6 Finger Stick Blood Glucose 227 Intake and Output for Last 24 Hours 09/12/19 09/13/19 09/14/19 23:59 23:59 23:59 Intake Total 4437.17 / 4437.17 380 / 380 Output Total 1675 / 1675 375 / 375 Balance 2762.17 / 2762.17 5 / 5 General: Alert, Oriented x3 HEENT: Atraumatic Oral: Moist Mucosa Neck: Supple, No JVD Lungs: Clear to auscultation, Normal air movement Cardiovascular: Regular rate, Regular Rhythm, Normal S1 Abdomen: Bowel Sounds Present, Soft, Non Tender Extremities: No clubbing Skin: No rashes Lymphatic: No Cervical, Supraclavicular, or Inguinal Adenopathy Neurological: Cranial nerves II-XII grossly intact, Neuro grossly intact Microbiology Past 72 Hours 09/13/19 08:25 Sputum, Expectorated/Coughed Gram Stain - Preliminary 09/13/19 08:25 Sputum, Expectorated/Coughed Respiratory Culture - Preliminary Appears to be normal respiratory osorio. Further studies to follow. 09/13/19 03:07 Mucosa - Nasopharyngeal Respiratory Panel (PCR) - Final 09/13/19 08:07 Urine, Clean Catch Streptococcus pneumoniae Antigen (M - Final 09/13/19 08:07 Urine, Clean Catch Legionella Antigen - Final Laboratory Results 09/13/19 21:24: POC Glucose 158 H 09/14/19 05:05: Sodium 143, Potassium 4.0, Chloride 110 H, Carbon Dioxide 28.0, Anion Gap 5, BUN 18, Creatinine 1.39 H, Estim Creat Clear Calc 39.94, Est GFR (MDRD) Af Amer 64, Est GFR (MDRD) Non-Af 53 L, BUN/Creatinine Ratio 12.9, Glucose 118 H, Calcium 7.5 L, Triglycerides 57, Cholesterol 146, LDL Cholesterol 71, VLDL Cholesterol 11, HDL Cholesterol 64 09/14/19 05:05: WBC 7.6, RBC 4.32 L, Hgb 12.9 L, Hct 40.9, MCV 94.7 H, MCH 29.9, MCHC 31.5 L, RDW Std Deviation 47.2 H, RDW Coeff of [place] 13.5, Plt Count 160, MPV 9.9, Immature Gran % (Auto) 0.300, Neut % (Auto) 72.2 H, Lymph % (Auto) 17.4 L, [place] % (Auto) 8.4, Eos % (Auto) 1.4, Baso % (Auto) 0.3, Absolute Neuts (auto) 5.5, Absolute Lymphs (auto) 1.33, Nucleated RBC % 0 09/14/19 05:05: B-Natriuretic Peptide 350.8 H 09/14/19 12:28: POC Glucose 239 H 09/14/19 16:29: POC Glucose 160 H Current Medications Acetaminophen (Tylenol) 650 mg PO Q6H PRN PRN PRN Reason: Pain Score 1-3/Temp > 100.7 F Al Hydroxide/Mg Hydroxide (Mylanta Ii) 30 ml PO Q6H PRN PRN PRN Reason: Gastric Burning Albuterol Sulfate (Ventolin Aerosols) 2.5 mg INHALATION Q2H PRN PRN PRN Reason: SOB/Wheezing Albuterol/Ipratropium (Duoneb) 3 ml INHALATION Q4HWA.RT [facility] Last Admin: 09/14/19 15:31 Dose: 3 ml Documented by: Aspirin (Aspirin, Baby) 81 mg PO DAILY@0800 [facility] Last Admin: 09/14/19 09:57 Dose: 81 mg Documented by: Enoxaparin Sodium (Lovenox) 70 mg SC Q12 [facility] Last Admin: 09/14/19 09:50 Dose: Not Given Documented by: Finasteride (Proscar) 5 mg PO DAILY [facility] Last Admin: 09/14/19 09:57 Dose: 5 mg Documented by: Glucagon () 1 mg IM .X1 PRN PRN Reason: Hypoglycemia Guaifenesin (Robitussin) 20 ml PO Q4H PRN PRN PRN Reason: COUGH Hydralazine HCl (Apresoline Iv) 10 mg IV Q4H PRN PRN PRN Reason: SBP > 160 Dextrose (Dextrose 10%-Water) 250 mls @ 999 mls/hr IV .Q16M PRN; Protocol PRN Reason: HYPOGLYCEMIA Piperacillin Sod/Tazobactam (Sod 3.375 gm/ Sodium Chloride) 50 mls @ 12.5 mls/hr IV Q8 [facility] Last Admin: 09/14/19 14:54 Dose: 12.5 mls/hr Documented by: Insulin Human Lispro (Humalog Kwikpen (Bkc)) 0 unit SC ACHS [facility]; Protocol Last Admin: 09/14/19 16:42 Dose: 1 units Documented by: Magnesium Hydroxide (Milk Of Magnesia) 30 ml PO DAILY PRN PRN PRN Reason: Constipation Nitroglycerin (Nitrostat) 0.4 mg SUBLINGUAL Q5M PRN PRN Reason: CARDIAC/CHEST PAIN Ondansetron HCl (Zofran) 4 mg IV Q8H PRN PRN PRN Reason: NAUSEA/VOMITING Prochlorperazine Edisylate (Compazine Iv) 5 mg IV Q4H PRN PRN PRN Reason: Breakthrough Nausea/Vomiting Sodium Chloride () 10 - 40 ml IV UD PRN PRN Reason: SALINE FLUSH Last Admin: 09/14/19 14:55 Dose: 10 ml Documented by: Tamsulosin HCl (Flomax) 0.4 mg PO QHS [facility] Last Admin: 09/13/19 21:25 Dose: 0.4 mg Documented by: Throat Lozenges (Cepacol Sore Throat Lozenge) 1 lozenge MUCOUS MEM Q2H PRN PRN PRN Reason: Sore Throat/Cough Medical Necessity - Tobacco Use Smoking Status: Never smoker Tobacco Use: Secondhand Assessment/Plan All Active Problems Sepsis (Acute) Acute respiratory failure with hypoxia (Acute) Pneumonia (Acute) JOSE (acute kidney injury) (Acute) Community acquired pneumonia (Acute) 1-JOSE on CKD stage 3. CKD is likely from R nephrectomy due to obstructive uropathy JOSE is likely from prerenal related to dehydration. Cr peaked at 1.65 mgdl and improved to 1.3 mg/dL Cr is stable at 1.3 . IVF stopped on 1/18 No need for DIRECTOR OF ENTERTAINMENT Continue urine drain via collins Keep MAP > 65 Avoid ACEI/ARB for now Monitor RPF and UOP 2- BPH: On Flomax and finasteride Continue collins 3- Acute RF due to B/L pneumonia.Better 02 support and Abx as the hospitalist 4- NSTEMI: with low EF. Will defer work up and treatment to cardiology service Will continue to follow Please call if any question Aguilar Ruiz MD
[2019-09-14] MEDS: Tamsulosin HCl 0.4 MG Capsule PO (22:03)
[2019-09-14 22:11] LABS: Bedside Glucose 215 mg/dL (70-110)
[2019-09-15] VITALS (16 sets, daily range): BP systolic 126–144; BP diastolic 64–74; PULSE 85–129; RESP 16–20; TEMP 36.8–37.1; O2SAT 88–99
[2019-09-15 05:19] LABS: Absolute Neutrophil Count 6.2 X10^3/uL (2.0-7.7); Basophil# 0.02 X10^3/uL; Basophil% 0.2 % (0-1); Eosinophil# 0.34 X10^3/uL; Hematocrit 37.2 % (40-54); Lymphocyte % 14.2 % (19-41); Mean Corp Hgb Conc 32.3 g/dL (32-36); Mean Corpuscular Hgb 29.9 pg (27.0-32.0); Mean Corpuscular Volume 92.8 fL (80-94); Mean Platelet Vol. 9.3 fl (6.2-12.0); Monocyte# 0.64 X10^3/uL; Monocyte% 7.6 % (0-10); NRBC Flagged by Analyzer 0 % (0-5); Neutrophil # 6.21 X10^3/uL (2.7-7.7); Neutrophil % 73.6 % (47-70); Platelet Count 164 K/mm3 (150-450); RBC Distribution Width CV 13.4 % (11.6-14.6); RBC Distribution Width SD 46.1 fl (35.1-43.9); Red Blood Count 4.01 M/mm3 (4.6-6.2); White Blood Count 8.4 K/mm3 (4.4-11.0)
[2019-09-15 05:37] LABS: Anion Gap 5 (5-15); BUN 21 mg/dL (7-18); BUN/Creat Ratio 14.6 RATIO (10-20); Calcium,Total 7.8 mg/dL (8.5-10.1); Chloride 110 mmol/L (98-107); Creatinine, Serum 1.44 mg/dL (0.70-1.30); EST Glomerular Filtration Rate 51 mL/min (>60); Est Glom Filt Rate - Afr Amer 62 mL/min (>60); Estimated Creatinine Clearance 38.56 ml/min; Glucose 134 mg/dL (74-106); Potassium 3.9 mmol/L (3.5-5.1); Sodium Level 141 mmol/L (136-145)
[2019-09-15] MEDS: Insulin Lispro 100 UNIT/ML INSULN.PEN SC (06:21)
[2019-09-15 06:50] LABS: Bedside Glucose 152 mg/dL (70-110)
[2019-09-15] MEDS: Ipratropium/Albuterol Sulfate 3 ML AMPUL.NEB INHALATION ×4 (06:52→19:22)
[2019-09-15] MEDS: Aspirin 81 MG TAB.CHEW PO (08:44)
--- NOTE | 2019-09-15 09:41 | PCM.PN.INT ---
Subjective: Patient transferred out of the intensive care unit yesterday. Patient did well on room air overnight and feels subjectively improved. Patient still having some dyspnea with getting out of bed and walking to the bathroom. No need for BiPAP rescue overnight. General: Alert, Oriented x3, Cooperative, No apparent distress, Well developed, Well nourished, - - No conversational dyspnea HEENT: Atraumatic, PERRLA, EOMI, - - No scleral icterus or injection noted Oral: Moist Mucosa, No Gingival or Mucosal Lesions/ Ulcerations Neck: Supple, No JVD, No Nodes, Trachea Midline Lungs: No rhonchi, No wheeze, No rales, Diminished, - - Symmetric expansion. Cardiovascular: Regular rate, Regular Rhythm, Normal S1, Normal S2, No murmurs, No rub noted, No Gallop Abdomen: Bowel Sounds Present, Soft, Non Tender, Non-Distended Extremities: No clubbing, No cyanosis, No edema, Capillary Refill Less than 3 Seconds Skin: No rashes, No breakdown Musculoskeletal: No Tenderness to Palpation of Joints or Extremities Lymphatic: No Cervical, Supraclavicular, or Inguinal Adenopathy Neurological: Cranial nerves II-XII grossly intact, Neuro grossly intact Psych/Mental Status: Alert and oriented to time, place, person, mood and affect Vital Signs Temp Pulse Resp BP Pulse Ox 37.1 C 102 H 18 126/68 H 92 09/15/19 03:00 09/15/19 07:33 09/15/19 06:49 09/15/19 03:00 09/15/19 06:50 Oxygen Flow Rate (L/min) 1 Oxygen Delivery Method Room Air Weight: 72.5 kg Body Mass Index (BMI) 25.6 Finger Stick Blood Glucose 227 Intake and Output for Last 24 Hours 09/13/19 09/14/19 09/15/19 23:59 23:59 23:59 Intake Total 4437.17 / 4437.17 670 / 870 350 / 350 Output Total 1675 / 1675 675 / 675 575 / 575 Balance 2762.17 / 2762.17 -5 / 195 -225 / -225 Labs (Last 48 Hours) 09/13/19 09/13/19 09/13/19 09:30 11:13 16:01 WBC RBC Hgb Hct MCV MCH MCHC RDW Std Deviation RDW Coeff of Morris Plt Count MPV Immature Gran % (Auto) Neut % (Auto) Lymph % (Auto) [place] % (Auto) Eos % (Auto) Baso % (Auto) Absolute Neuts (auto) Absolute Lymphs (auto) Nucleated RBC % Sodium Potassium Chloride Carbon Dioxide Anion Gap BUN Creatinine Estim Creat Clear Calc Est GFR (MDRD) Af Amer Est GFR (MDRD) Non-Af BUN/Creatinine Ratio Glucose Calcium B-Natriuretic Peptide Triglycerides Cholesterol LDL Cholesterol VLDL Cholesterol HDL Cholesterol MRSA (PCR) Negative POC Glucose 132 H 124 H 09/13/19 09/14/19 09/14/19 21:24 05:05 05:05 WBC 7.6 RBC 4.32 L Hgb 12.9 L Hct 40.9 MCV 94.7 H MCH 29.9 MCHC 31.5 L RDW Std Deviation 47.2 H RDW Coeff of Morris 13.5 Plt Count 160 MPV 9.9 Immature Gran % (Auto) 0.300 Neut % (Auto) 72.2 H Lymph % (Auto) 17.4 L [place] % (Auto) 8.4 Eos % (Auto) 1.4 Baso % (Auto) 0.3 Absolute Neuts (auto) 5.5 Absolute Lymphs (auto) 1.33 Nucleated RBC % 0 Sodium 143 Potassium 4.0 Chloride 110 H Carbon Dioxide 28.0 Anion Gap 5 BUN 18 Creatinine 1.39 H Estim Creat Clear Calc 39.94 Est GFR (MDRD) Af Amer 64 Est GFR (MDRD) Non-Af 53 L BUN/Creatinine Ratio 12.9 Glucose 118 H Calcium 7.5 L B-Natriuretic Peptide Triglycerides 57 Cholesterol 146 LDL Cholesterol 71 VLDL Cholesterol 11 HDL Cholesterol 64 MRSA (PCR) POC Glucose 158 H 09/14/19 09/14/19 09/14/19 05:05 12:28 16:29 WBC RBC Hgb Hct MCV MCH MCHC RDW Std Deviation RDW Coeff of Morris Plt Count MPV Immature Gran % (Auto) Neut % (Auto) Lymph % (Auto) [place] % (Auto) Eos % (Auto) Baso % (Auto) Absolute Neuts (auto) Absolute Lymphs (auto) Nucleated RBC % Sodium Potassium Chloride Carbon Dioxide Anion Gap BUN Creatinine Estim Creat Clear Calc Est GFR (MDRD) Af Amer Est GFR (MDRD) Non-Af BUN/Creatinine Ratio Glucose Calcium B-Natriuretic Peptide 350.8 H Triglycerides Cholesterol LDL Cholesterol VLDL Cholesterol HDL Cholesterol MRSA (PCR) POC Glucose 239 H 160 H 09/14/19 09/15/19 09/15/19 21:59 05:00 05:00 WBC 8.4 RBC 4.01 L Hgb 12.0 L Hct 37.2 L MCV 92.8 MCH 29.9 MCHC 32.3 RDW Std Deviation 46.1 H RDW Coeff of Morris 13.4 Plt Count 164 MPV 9.3 Immature Gran % (Auto) 0.400 Neut % (Auto) 73.6 H Lymph % (Auto) 14.2 L [place] % (Auto) 7.6 Eos % (Auto) 4.0 Baso % (Auto) 0.2 Absolute Neuts (auto) 6.2 Absolute Lymphs (auto) 1.20 Nucleated RBC % 0 Sodium 141 Potassium 3.9 Chloride 110 H Carbon Dioxide 26.0 Anion Gap 5 BUN 21 H Creatinine 1.44 H Estim Creat Clear Calc 38.56 Est GFR (MDRD) Af Amer 62 Est GFR (MDRD) Non-Af 51 L BUN/Creatinine Ratio 14.6 Glucose 134 H Calcium 7.8 L B-Natriuretic Peptide Triglycerides Cholesterol LDL Cholesterol VLDL Cholesterol HDL Cholesterol MRSA (PCR) POC Glucose 215 H 09/15/19 06:14 WBC RBC Hgb Hct MCV MCH MCHC RDW Std Deviation RDW Coeff of Morris Plt Count MPV Immature Gran % (Auto) Neut % (Auto) Lymph % (Auto) [place] % (Auto) Eos % (Auto) Baso % (Auto) Absolute Neuts (auto) Absolute Lymphs (auto) Nucleated RBC % Sodium Potassium Chloride Carbon Dioxide Anion Gap BUN Creatinine Estim Creat Clear Calc Est GFR (MDRD) Af Amer Est GFR (MDRD) Non-Af BUN/Creatinine Ratio Glucose Calcium B-Natriuretic Peptide Triglycerides Cholesterol LDL Cholesterol VLDL Cholesterol HDL Cholesterol MRSA (PCR) POC Glucose 152 H Microbiology 09/13/19 08:25 Sputum, Expectorated/Coughed Gram Stain - Preliminary 09/13/19 08:25 Sputum, Expectorated/Coughed Respiratory Culture - Preliminary Appears to be normal respiratory osorio. Further studies to follow. 09/13/19 03:07 Mucosa - Nasopharyngeal Respiratory Panel (PCR) - Final 09/13/19 08:07 Urine, Clean Catch Streptococcus pneumoniae Antigen (M - Final 09/13/19 08:07 Urine, Clean Catch Legionella Antigen - Final Medical Necessity - Tobacco Use Smoking Status: Never smoker Tobacco Use: Secondhand Assessment/Plan All Active Problems Sepsis (Acute) Acute respiratory failure with hypoxia (Acute) Pneumonia (Acute) JOSE (acute kidney injury) (Acute) Community acquired pneumonia (Acute) RECOMMENDATIONS: 1. If cultures are negative, antibiotic spectrum can likely be narrowed from my perspective 2. Check walking oximetry. Keep saturations greater than 90% at all times 3. Await cardiology optimization 4. Increase activity as tolerated IMPRESSIONS: 1. Severe sepsis secondary to presumed community-acquired pneumonia Patient appears to be improving with current therapy. Await culture results. If negative in 48 hours, de-escalation of antibiotics are likely reasonable from a pulmonary perspective. Levaquin versus doxycycline would be appropriate. 2. Acute hypoxemic respiratory failure The patient did have bilateral interstitial infiltrates noted on chest x-ray on presentation to the hospital. He remains on empiric antimicrobial therapy for presumptive community-acquired pneumonia. In addition, he was recently identified as having new onset systolic heart failure, raising the possibility that a component of the findings noted on chest x-ray may have been pulmonary edema. Echocardiogram is consistent with acute on chronic systolic congestive heart failure. Cardiology is following. Oxygenation has rapidly improved indicating at least a component of congestive heart failure present on presentation. Defer to cardiology for optimization. Walking oximetry. 3. Acute kidney injury Improved. Continue current supportive measures. Will monitor urine output. No current indication for renal replacement therapy. 4. Indeterminate troponin/newly identified systolic heart failure Continue primary medical management per cardiology recommendations. 5. History of obstructive uropathy/diabetes mellitus/BPH Complicates care, management, recovery and prognosis. Code Visit Inpatient E&M: 30454 Subs Hosp L2
[2019-09-15] MEDS: Finasteride 5 MG Tablet PO (10:06)
--- NOTE | 2019-09-15 10:48 | CASEMGMT ---
Insurance review for IN-network hospitals per [facility] Website if transfer is recommended is as follows: [facility] ([facility]), [facility] ([facility]), [facility], [facility], [facility], and [facility]. Demi NOBLESN RN CM
[2019-09-15 12:25] LABS: Bedside Glucose 124 mg/dL (70-110)
[2019-09-15] MEDS: Furosemide 20 MG/2 ML VIAL IV (12:44)
[2019-09-15] MEDS: Enoxaparin 80 MG/0.8 ML Syringe 70 MG SC ×2 (12:45→21:55)
[2019-09-15] MEDS: 0.9% Saline Lock 10 ML Syringe IV (12:45)
--- NOTE | 2019-09-15 12:55 | PN.RENAL_ITS ---
Patient Problems: Active and Suspected Problems Sepsis (Acute) Acute respiratory failure with hypoxia (Acute) Pneumonia (Acute) JOSE (acute kidney injury) (Acute) Community acquired pneumonia (Acute) Subjective: No shortness of breath no chest pain - Physical Exam Vitals/I&O's: Vital Signs Temp Pulse Resp BP Pulse Ox 98.4 F 100 16 130/64 H 92 09/15/19 10:00 09/15/19 10:51 09/15/19 10:51 09/15/19 10:00 09/15/19 10:51 Oxygen Flow Rate (L/min) 1 Oxygen Delivery Method Room Air Weight: 72.5 kg Body Mass Index (BMI) 25.6 Finger Stick Blood Glucose 227 Intake and Output for Last 24 Hours 09/13/19 09/14/19 09/15/19 23:59 23:59 23:59 Intake Total 4437.17 / 4437.17 670 / 870 400 / 400 Output Total 1675 / 1675 675 / 675 575 / 575 Balance 2762.17 / 2762.17 -5 / 195 -175 / -175 General: Alert, Oriented x3, Cooperative HEENT: Atraumatic, PERRLA, EOMI, Normocephalic Neck: Supple, No JVD, Negative Carotid Bruits Lungs: Clear to auscultation, Normal air movement Cardiovascular: Regular rate, No murmurs Abdomen: Bowel Sounds Present, Soft, Non Tender Extremities: Capillary Refill Less than 3 Seconds, Edema, - - ankle edema b/l Skin: No rashes, No breakdown Musculoskeletal: No Tenderness to Palpation of Joints or Extremities Neurological: Cranial nerves II-XII grossly intact Psych/Mental Status: Normal Affect, Appropriate Microbiology Past 72 Hours 09/13/19 08:25 Sputum, Expectorated/Coughed Gram Stain - Final 09/13/19 08:25 Sputum, Expectorated/Coughed Respiratory Culture - Preli minary Appears to be normal respiratory osorio. Further studies to follow. 09/13/19 03:07 Mucosa - Nasopharyngeal Respiratory Panel (PCR) - Final 09/13/19 08:07 Urine, Clean Catch Streptococcus pneumoniae Antigen (M - Final 09/13/19 08:07 Urine, Clean Catch Legionella Antigen - Final Laboratory Results 09/14/19 16:29: POC Glucose 160 H 09/14/19 21:59: POC Glucose 215 H 09/15/19 05:00: WBC 8.4, RBC 4.01 L, Hgb 12.0 L, Hct 37.2 L, MCV 92.8, MCH 29.9, MCHC 32.3, RDW Std Deviation 46.1 H, RDW Coeff of Morris 13.4, Plt Count 164, MPV 9.3, Immature Gran % (Auto) 0.400, Neut % (Auto) 73.6 H, Lymph % (Auto) 14.2 L, [place] % (Auto) 7.6, Eos % (Auto) 4.0, Baso % (Auto) 0.2, Absolute Neuts (auto) 6.2, Absolute Lymphs (auto) 1.20, Nucleated RBC % 0 09/15/19 05:00: Sodium 141, Potassium 3.9, Chloride 110 H, Carbon Dioxide 26.0, Anion Gap 5, BUN 21 H, Creatinine 1.44 H, Estim Creat Clear Calc 38.56, Est GFR (MDRD) Af Amer 62, Est GFR (MDRD) Non-Af 51 L, BUN/Creatinine Ratio 14.6, Glucose 134 H, Calcium 7.8 L 09/15/19 06:14: POC Glucose 152 H 09/15/19 12:20: POC Glucose 124 H Current Medications Acetaminophen (Tylenol) 650 mg PO Q6H PRN PRN PRN Reason: Pain Score 1-3/Temp > 100.7 F Al Hydroxide/Mg Hydroxide (Mylanta Ii) 30 ml PO Q6H PRN PRN PRN Reason: Gastric Burning Albuterol Sulfate (Ventolin Aerosols) 2.5 mg INHALATION Q2H PRN PRN PRN Reason: SOB/Wheezing Albuterol/Ipratropium (Duoneb) 3 ml INHALATION Q4HWA.RT [facility] Last Admin: 09/15/19 10:51 Dose: 3 ml Documented by: Amoxicillin/Clavulanate Potassium ([facility]in Tablet) [facility] Aspirin (Aspirin, Baby) 81 mg PO DAILY@0800 [facility] Last Admin: 09/15/19 08:44 Dose: 81 mg Documented by: Carvedilol (Coreg) 3.125 mg PO BID [facility] Enoxaparin Sodium (Lovenox) 70 mg SC Q12 [facility] Last Admin: 09/15/19 12:45 Dose: 70 mg Documented by: Finasteride (Proscar) 5 mg PO DAILY [facility] Last Admin: 09/15/19 10:06 Dose: 5 mg Documented by: Glucagon () 1 mg IM .X1 PRN PRN Reason: Hypoglycemia Guaifenesin (Robitussin) 20 ml PO Q4H PRN PRN PRN Reason: COUGH Hydralazine HCl (Apresoline Iv) 10 mg IV Q4H PRN PRN PRN Reason: SBP > 160 Dextrose (Dextrose 10%-Water) 250 mls @ 999 mls/hr IV .Q16M PRN; Protocol PRN Reason: HYPOGLYCEMIA Insulin Human Lispro (Humalog Kwikpen (Bkc)) 0 unit SC ACHS [facility]; Protocol Last Admin: 09/15/19 12:25 Dose: Not Given Documented by: Magnesium Hydroxide (Milk Of Magnesia) 30 ml PO DAILY PRN PRN PRN Reason: Constipation Nitroglycerin (Nitrostat) 0.4 mg SUBLINGUAL Q5M PRN PRN Reason: CARDIAC/CHEST PAIN Ondansetron HCl (Zofran) 4 mg IV Q8H PRN PRN PRN Reason: NAUSEA/VOMITING Prochlorperazine Edisylate (Compazine Iv) 5 mg IV Q4H PRN PRN PRN Reason: Breakthrough Nausea/Vomiting Sodium Chloride () 10 - 40 ml IV UD PRN PRN Reason: SALINE FLUSH Last Admin: 09/15/19 12:45 Dose: 10 ml Documented by: Tamsulosin HCl (Flomax) 0.4 mg PO QHS [facility] Last Admin: 09/14/19 22:03 Dose: 0.4 mg Documented by: Throat Lozenges (Cepacol Sore Throat Lozenge) 1 lozenge MUCOUS MEM Q2H PRN PRN PRN Reason: Sore Throat/Cough Medical Necessity - Tobacco Use Smoking Status: Never smoker Tobacco Use: Secondhand Assessment/Plan All Active Problems Sepsis (Acute) Acute respiratory failure with hypoxia (Acute) Pneumonia (Acute) JOSE (acute kidney injury) (Acute) Community acquired pneumonia (Acute) JOSE prerenal possible CRS CKD baseline Creatinine 1.25 right nephrectomy for obstructive uropathy LE edema HF NSTEMI b/l PNA DM Scr 1.44 s/p lasix iv now\ Renal ultrasound and UA and BMP in a.m. Nephrotoxins overdiuresis bp ok monitor on carvedilol d/w [employer]
--- NOTE | 2019-09-15 13:07 | US_ITS ---
STUDY: RENAL ULTRASOUND - COMPLETE REASON FOR EXAM: Male, 74 years old. RAMÍREZ, RT NEPHRECTOMY TECHNIQUE: Ultrasound evaluation of the kidneys was performed with real-time and static moralez-scale imaging. COMPARISON: None. FINDINGS: The patient is status post right nephrectomy. In the right renal fossa, there is a 4.8 cm x 3.4 cm fluid collection. LEFT KIDNEY: Normal location of the left kidney, which is normal in size. The left kidney measures 9.5 cm x 4.6 x 4.5 cm. There is a normal cortex of the left kidney. The renal cortex measures 1.2 cm. There is no left renal mass or cyst. There are no left renal calculi. There is no left hydronephrosis. DISTAL LEFT URETER: There is non-visualization of the distal left ureter. There is no demonstrated left ureterovesical junction calculus. There is a visualized left ureteral jet. BLADDER: The distended urinary bladder has a volume of 486 ml. The empty urinary bladder has a volume of ml. There is a normal wall thickness of the distended urinary bladder. There is no demonstrated mass within the urinary bladder. There are no demonstrated bladder calculi. US/Kidney and Bladder IMPRESSION: Status post right nephrectomy. In the right renal fossa, there is a 4.8 cm x 4.8 cm by 3.4 cm fluid collection. Electronically Signed: Girma Ruiz, at 9:17 EST , Service support ,
--- NOTE | 2019-09-15 14:05 | PCM.PROGNOTE ---
<Melony Singer - Last Filed: 09/15/19 14:13> Patient Problems: Active and Suspected Problems Sepsis (Acute) Acute respiratory failure with hypoxia (Acute) Pneumonia (Acute) JOSE (acute kidney injury) (Acute) Community acquired pneumonia (Acute) Subjective: Patient seen and examined. Complains of dyspnea with minimal exertion. Denies chest pain. Denies other current complaints. - Physical Exam Vitals/I&O's: Vital Signs Temp Pulse Resp BP Pulse Ox 98.4 F 102 H 16 130/64 H 92 09/15/19 10:00 09/15/19 13:36 09/15/19 10:51 09/15/19 10:00 09/15/19 10:51 Oxygen Flow Rate (L/min) 1 Oxygen Delivery Method Room Air Weight: 159 lb 13.362 oz Body Mass Index (BMI) 25.6 Finger Stick Blood Glucose 227 Intake and Output for Last 24 Hours 09/13/19 09/14/19 09/15/19 23:59 23:59 23:59 Intake Total 4437.17 / 4437.17 670 / 870 1400 / 1400 Output Total 1675 / 1675 675 / 675 575 / 575 Balance 2762.17 / 2762.17 -5 / 195 825 / 825 General: Alert, Oriented x3, Cooperative HEENT: Atraumatic, PERRLA, EOMI, Normocephalic Neck: Supple, No JVD, Negative Carotid Bruits Lungs: Clear to auscultation, Diminished Cardiovascular: Regular rate, No murmurs Abdomen: Bowel Sounds Present, Soft, Non Tender, Non-Distended Extremities: No clubbing, No cyanosis, No edema, Capillary Refill Less than 3 Seconds Skin: No rashes, No breakdown Musculoskeletal: No Tenderness to Palpation of Joints or Extremities Neurological: Cranial nerves II-XII grossly intact, Neuro grossly intact Psych/Mental Status: Normal Affect, Appropriate Microbiology Past 72 Hours 09/13/19 08:25 Sputum, Expectorated/Coughed Gram Stain - Final 09/13/19 08:25 Sputum, Expectorated/Coughed Respiratory Culture - Preliminary Appears to be normal respiratory osorio. Further studies to follow. 09/13/19 03:07 Mucosa - Nasopharyngeal Respiratory Panel (PCR) - Final 09/13/19 08:07 Urine, Clean Catch Streptococcus pneumoniae Antigen (M - Final 09/13/19 08:07 Urine, Clean Catch Legionella Antigen - Final Laboratory Results 09/14/19 16:29: POC Glucose 160 H 09/14/19 21:59: POC Glucose 215 H 09/15/19 05:00: WBC 8.4, RBC 4.01 L, Hgb 12.0 L, Hct 37.2 L, MCV 92.8, MCH 29.9, MCHC 32.3, RDW Std Deviation 46.1 H, RDW Coeff of Morris 13.4, Plt Count 164, MPV 9.3, Immature Gran % (Auto) 0.400, Neut % (Auto) 73.6 H, Lymph % (Auto) 14.2 L, Millard % (Auto) 7.6, Eos % (Auto) 4.0, Baso % (Auto) 0.2, Absolute Neuts (auto) 6.2, Absolute Lymphs (auto) 1.20, Nucleated RBC % 0 09/15/19 05:00: Sodium 141, Potassium 3.9, Chloride 110 H, Carbon Dioxide 26.0, Anion Gap 5, BUN 21 H, Creatinine 1.44 H, Estim Creat Clear Calc 38.56, Est GFR (MDRD) Af Amer 62, Est GFR (MDRD) Non-Af 51 L, BUN/Creatinine Ratio 14.6, Glucose 134 H, Calcium 7.8 L 09/15/19 06:14: POC Glucose 152 H 09/15/19 12:20: POC Glucose 124 H Current Medications Acetaminophen (Tylenol) 650 mg PO Q6H PRN PRN PRN Reason: Pain Score 1-3/Temp > 100.7 F Al Hydroxide/Mg Hydroxide (Mylanta Ii) 30 ml PO Q6H PRN PRN PRN Reason: Gastric Burning Albuterol Sulfate (Ventolin Aerosols) 2.5 mg INHALATION Q2H PRN PRN PRN Reason: SOB/Wheezing Albuterol/Ipratropium (Duoneb) 3 ml INHALATION Q4HWA.RT [facility] Last Admin: 09/15/19 10:51 Dose: 3 ml Documented by: Amoxicillin/Clavulanate Potassium (Augmentin Tablet) 875 mg PO BIDCM [facility] Aspirin (Aspirin, Baby) 81 mg PO DAILY@0800 [facility] Last Admin: 09/15/19 08:44 Dose: 81 mg Documented by: Carvedilol (Coreg) 3.125 mg PO BID [facility] Enoxaparin Sodium (Lovenox) 70 mg SC Q12 [facility] Last Admin: 09/15/19 12:45 Dose: 70 mg Documented by: Finasteride (Proscar) 5 mg PO DAILY [facility] Last Admin: 09/15/19 10:06 Dose: 5 mg Documented by: Glucagon () 1 mg IM .X1 PRN PRN Reason: Hypoglycemia Guaifenesin (Robitussin) 20 ml PO Q4H PRN PRN PRN Reason: COUGH Hydralazine HCl (Apresoline Iv) 10 mg IV Q4H PRN PRN PRN Reason: SBP > 160 Dextrose (Dextrose 10%-Water) 250 mls @ 999 mls/hr IV .Q16M PRN; Protocol PRN Reason: HYPOGLYCEMIA Insulin Human Lispro (Humalog Kwikpen (Bkc)) 0 unit SC ACHS [facility]; Protocol Last Admin: 09/15/19 12:25 Dose: Not Given Documented by: Magnesium Hydroxide (Milk Of Magnesia) 30 ml PO DAILY PRN PRN PRN Reason: Constipation Nitroglycerin (Nitrostat) 0.4 mg SUBLINGUAL Q5M PRN PRN Reason: CARDIAC/CHEST PAIN Ondansetron HCl (Zofran) 4 mg IV Q8H PRN PRN PRN Reason: NAUSEA/VOMITING Prochlorperazine Edisylate (Compazine Iv) 5 mg IV Q4H PRN PRN PRN Reason: Breakthrough Nausea/Vomiting Sodium Chloride () 10 - 40 ml IV UD PRN PRN Reason: SALINE FLUSH Last Admin: 09/15/19 12:45 Dose: 10 ml Documented by: Tamsulosin HCl (Flomax) 0.4 mg PO QHS [facility] Last Admin: 09/14/19 22:03 Dose: 0.4 mg Documented by: Throat Lozenges (Cepacol Sore Throat Lozenge) 1 lozenge MUCOUS MEM Q2H PRN PRN PRN Reason: Sore Throat/Cough Medical Necessity - Tobacco Use Smoking Status: Never smoker Tobacco Use: Secondhand Assessment/Plan All Active Problems Sepsis (Acute) Acute respiratory failure with hypoxia (Acute) Pneumonia (Acute) JOSE (acute kidney injury) (Acute) Community acquired pneumonia (Acute) 1. Septic shock secondary to community-acquired pneumonia with associated acute hypoxic respiratory failure-initially requiring BiPAP on admission. Oxygen now stable on room air. Transition to oral antibiotics with Augmentin. Walking pulse ox prior to discharge. 2. 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 Nephrology following. Obtain renal ultrasound. 3. NSTEMI/cardiomyopathy with reduced ejection fraction-echocardiogram demonstrates an EF of 20 to 25% with global hypokinesis. No prior history of heart failure. Cardiology following. Plan for heart cath when stable from renal and respiratory status. Continue aspirin, carvedilol. 4. Type 2 diabetes mellitus-oral regimen on hold. Accu-Cheks with sliding scale insulin. 5. BPH-continue Flomax, Proscar regimen. DVT prophylaxis-heparin subcu This patient was seen by EARL Duval under the supervision of Dr. Butler. <Shirley Butler - Last Filed: 09/15/19 19:35> - Physical Exam Vitals/I&O's: Vital Signs Temp Pulse Resp BP Pulse Ox 98.4 F 102 H 16 130/64 H 92 09/15/19 10:00 09/15/19 13:36 09/15/19 10:51 09/15/19 10:00 09/15/19 10:51 Oxygen Flow Rate (L/min) 1 Oxygen Delivery Method Room Air Weight: 72.5 kg Body Mass Index (BMI) 25.6 Finger Stick Blood Glucose 227 Intake and Output for Last 24 Hours 09/13/19 09/14/19 09/15/19 23:59 23:59 23:59 Intake Total 4437.17 / 4437.17 670 / 870 1400 / 1400 Output Total 1675 / 1675 675 / 675 575 / 575 Balance 2762.17 / 2762.17 -5 / 195 825 / 825 Microbiology Past 72 Hours 09/13/19 08:25 Sputum, Expectorated/Coughed Gram Stain - Final 09/13/19 08:25 Sputum, Expectorated/Coughed Respiratory Culture - Preliminary Appears to be normal respiratory osorio. Further studies to follow. 09/13/19 03:07 Mucosa - Nasopharyngeal Respiratory Panel (PCR) - Final 09/13/19 08:07 Urine, Clean Catch Streptococcus pneumoniae Antigen (M - Final 09/13/19 08:07 Urine, Clean Catch Legionella Antigen - Final Laboratory Results 09/14/19 16:29: POC Glucose 160 H 09/14/19 21:59: POC Glucose 215 H 09/15/19 05:00: WBC 8.4, RBC 4.01 L, Hgb 12.0 L, Hct 37.2 L, MCV 92.8, MCH 29.9, MCHC 32.3, RDW Std Deviation 46.1 H, RDW Coeff of Morris 13.4, Plt Count 164, MPV 9.3, Immature Gran % (Auto) 0.400, Neut % (Auto) 73.6 H, Lymph % (Auto) 14.2 L, Millard % (Auto) 7.6, Eos % (Auto) 4.0, Baso % (Auto) 0.2, Absolute Neuts (auto) 6.2, Absolute Lymphs (auto) 1.20, Nucleated RBC % 0 09/15/19 05:00: Sodium 141, Potassium 3.9, Chloride 110 H, Carbon Dioxide 26.0, Anion Gap 5, BUN 21 H, Creatinine 1.44 H, Estim Creat Clear Calc 38.56, Est GFR (MDRD) Af Amer 62, Est GFR (MDRD) Non-Af 51 L, BUN/Creatinine Ratio 14.6, Glucose 134 H, Calcium 7.8 L 09/15/19 06:14: POC Glucose 152 H 09/15/19 12:20: POC Glucose 124 H Current Medications Acetaminophen (Tylenol) 650 mg PO Q6H PRN PRN PRN Reason: Pain Score 1-3/Temp > 100.7 F Al Hydroxide/Mg Hydroxide (Mylanta Ii) 30 ml PO Q6H PRN PRN PRN Reason: Gastric Burning Albuterol Sulfate (Ventolin Aerosols) 2.5 mg INHALATION Q2H PRN PRN PRN Reason: SOB/Wheezing Albuterol/Ipratropium (Duoneb) 3 ml INHALATION Q4HWA.RT [facility] Last Admin: 09/15/19 10:51 Dose: 3 ml Documented by: Amoxicillin/Clavulanate Potassium ([facility]in Tablet) [facility] Aspirin (Aspirin, Baby) 81 mg PO DAILY@0800 [facility] Last Admin: 09/15/19 08:44 Dose: 81 mg Documented by: Carvedilol (Coreg) 3.125 mg PO BID [facility] Emollient Ointment (Eucerin Intensive Repair) 1 applic TOPICAL BID [facility]; Protocol Enoxaparin Sodium (Lovenox) 70 mg SC Q12 [facility] Last Admin: 09/15/19 12:45 Dose: 70 mg Documented by: Finasteride (Proscar) 5 mg PO DAILY [facility] Last Admin: 09/15/19 10:06 Dose: 5 mg Documented by: Glucagon () 1 mg IM .X1 PRN PRN Reason: Hypoglycemia Guaifenesin (Robitussin) 20 ml PO Q4H PRN PRN PRN Reason: COUGH Hydralazine HCl (Apresoline Iv) 10 mg IV Q4H PRN PRN PRN Reason: SBP > 160 Dextrose (Dextrose 10%-Water) 250 mls @ 999 mls/hr IV .Q16M PRN; Protocol PRN Reason: HYPOGLYCEMIA Insulin Human Lispro (Humalog Kwikpen (Bkc)) 0 unit SC ACHS [facility]; Protocol Last Admin: 09/15/19 12:25 Dose: Not Given Documented by: Magnesium Hydroxide (Milk Of Magnesia) 30 ml PO DAILY PRN PRN PRN Reason: Constipation Nitroglycerin (Nitrostat) 0.4 mg SUBLINGUAL Q5M PRN PRN Reason: CARDIAC/CHEST PAIN Ondansetron HCl (Zofran) 4 mg IV Q8H PRN PRN PRN Reason: NAUSEA/VOMITING Prochlorperazine Edisylate (Compazine Iv) 5 mg IV Q4H PRN PRN PRN Reason: Breakthrough Nausea/Vomiting Sodium Chloride () 10 - 40 ml IV UD PRN PRN Reason: SALINE FLUSH Last Admin: 09/15/19 12:45 Dose: 10 ml Documented by: Tamsulosin HCl (Flomax) 0.4 mg PO QHS [facility] Last Admin: 09/14/19 22:03 Dose: 0.4 mg Documented by: Throat Lozenges (Cepacol Sore Throat Lozenge) 1 lozenge MUCOUS MEM Q2H PRN PRN PRN Reason: Sore Throat/Cough Assessment/Plan r This patient was seen in conjunction with Melony Singer NP. I have independently interviewed and examined the patient and reviewed pertinent historical, laboratory, and other data. Please refer to her note for patient's presentation, findings, and recommendations. Patient was seen and examined. He was hypoxic on exertion. Denies chest pain or fever. Vitals were reviewed -stable Physical Exam: Gen: Comfortable, not pale, not jaundiced, alert oriented x3 CVS:HS I +II, regular, no murmurs RESP: Diminished at lung bases GI: BS present and normal, nontender, no palpable organs EXT:No edema Labs reviewed: ASSESSMENT: 1. Septic shock 2. CAP 3. Acute hypoxic respiratory failure 4. JOSE 5. NSTEMI 6. Type 2 DM Meds reviewed Plan: Continue on augmentin Follow-up on cardiology recommendation Code Visit Inpatient E&M: 73571 Subs Hosp L2
--- NOTE | 2019-09-15 15:43 | CASEMGMT ---
RN CM SPECIAL EDUCATION PROFESSOR CM to room to meet with patient for initial transition planning/care coordination assessment. BOB JEWELL introduced self and role at [facility]. Pt voices understanding and consents to assessment at this time. Pt sitting up in recliner chair in room, in no distress at this time. Pt is A/O at this time and answers all questions appropriately. Care providers, pharmacy, and demographics verified/updated at this time. PCP: Dr Carter Coon Specialists: Dr Mckinney, urology Preferred Pharmacy: [facility] Insurance: [employer] [facility], [place]. Prescription Benefit: Yes, [employer] Living Will/HPOA: States has both LW and Healthcare POA, who is Bree Hancock (related to her through his cousin). Stacy Hancock and Alex Hancock also listed as alternative POA's. Made aware POA found on file @ [facility] but LW is not Pt states will see if someone can bring in a copy of the LW. LNOK: Pt is not and has no children. Bree Hancock is his HCPOA. Living Arrangements: Lives alone in an apt that is on the 2nd floor. States he usually takes the stairs to his apt, but there is an elevator available if he needs. Independent with ADL's and IADL's. Transportation: Pt states drives self and states no transportation concerns at this time. States one of the [facility]'s may be able to take him home @ discharge, or he may call a cab. DME: Ambulates independently with no DME. Has grab bars in bathroom. States does not have further DME. Does not wear home O2. Pt states no need for further DME at this time. HHC/SNF: No history of SNF. States did have HHC after kidney surgery in 2015. Denies needs for HHC and no needs identified. PT/OT evals pending. Pt wishes to return home and states has no concerns with going home at time of discharge. CM to follow for home oxygen needs and any further discharge planning/needs. Pt voices no further concerns/needs at this time. Advised pt to ask for CM if any further questions/concerns/needs arise. Voices understanding. PLAN: Home. PT/OT evals pending. CM to follow. Demi HELMS RN, CM
--- NOTE | 2019-09-15 15:46 | PN.CARD_ITS ---
Subjectve: Patient feels that he has more shortness of breath today compared to yesterday. Denies any chest pain. No further hematuria. Objective: Vital Signs Temp Pulse Resp BP Pulse Ox 98.4 F 102 H 16 130/64 H 92 09/15/19 10:00 09/15/19 13:36 09/15/19 10:51 09/15/19 10:00 09/15/19 10:51 Oxygen Flow Rate (L/min) 1 Oxygen Delivery Method Room Air Weight: 159 lb 13.362 oz Body Mass Index (BMI) 25.6 Finger Stick Blood Glucose 227 Intake and Output for Last 24 Hours 09/13/19 09/14/19 09/15/19 23:59 23:59 23:59 Intake Total 4437.17 / 4437.17 670 / 870 1400 / 1400 Output Total 1675 / 1675 675 / 675 575 / 575 Balance 2762.17 / 2762.17 -5 / 195 825 / 825 General: Awake, Alert, Oriented x 3 HEENT: Atraumatic Oral: Moist Mucosa Neck: Supple, Positive JVD Lungs: Rales - Abraham Bases Cardiovascular: Regular Rhythm Abdomen: Soft Extremities: Bilateral Edema +1 Psych/Mental Status: Appropriate 09/15/19 05:00: WBC 8.4, RBC 4.01 L, Hgb 12.0 L, Hct 37.2 L, MCV 92.8, MCH 29.9, MCHC 32.3, Plt Count 164, MPV 9.3, Immature Gran % (Auto) 0.400, Neut % (Auto) 73.6 H, Lymph % (Auto) 14.2 L, [place] % (Auto) 7.6, Eos % (Auto) 4.0, Baso % (Auto) 0.2, Absolute Neuts (auto) 6.2, Nucleated RBC % 0 09/15/19 05:00: Sodium 141, Potassium 3.9, Chloride 110 H, Carbon Dioxide 26.0, Anion Gap 5, BUN 21 H, Creatinine 1.44 H, Est GFR (MDRD) Af Amer 62, Est GFR (MDRD) Non-Af 51 L, BUN/Creatinine Ratio 14.6, Glucose 134 H, Calcium 7.8 L Rhythm: EKG: ECHO: Stress Test: Cardiac Cath: PCI: CT Surgery: Holter monitor: EPS: PPM: CXR: Chest CT Scan: Medical Necessity - Tobacco Use Smoking Status: Never smoker Tobacco Use: Secondhand Assessment/Plan 1. LV dysfunction: Patient has severe LV dysfunction. We will proceed with coronary angiography when creatinine stabilizes. He appears to be slightly volume overloaded today. I will give him 1 dose of Lasix IV. I will also add Coreg. We will make a decision regarding coronary angiography based on vicky cruz's BMP tomorrow.
[2019-09-15 16:35] LABS: Bedside Glucose 134 mg/dL (70-110)
[2019-09-15] MEDS: Carvedilol 3.125 MG TABLET PO (17:07)
[2019-09-15] MEDS: Amox/Clavulanate 875 MG Tablet PO (17:07)
[2019-09-15] MEDS: Tamsulosin HCl 0.4 MG Capsule PO (21:55)
[2019-09-16] VITALS (21 sets, daily range): BP systolic 119–151; BP diastolic 69–96; PULSE 86–115; RESP 16–18; TEMP 36.4–36.8; O2SAT 88–99
[2019-09-16 02:46] LABS: Bedside Glucose 135 mg/dL (70-110)
--- NOTE | 2019-09-16 05:57 | PCM.PN.BLA ---
Progress Note Nurse reports hemoptysis x 1 , small speck of blood after a violent cough. Patient on therapeutic Lovenox for probably small non-ST elevation myocardial infarction possibly from demand ischemia from hypoxemia secondary to pneumonia per cardiology notes. Will continue Lovenox at this time. Clinical monitoring. STROKE Vital Signs/Narrative: Vital Signs Temp Pulse Resp BP Pulse Ox 09/16/19 03:34 86 09/16/19 02:00 97.6 F L 96 18 139/76 H 98
[2019-09-16 06:29] LABS: Anion Gap 6 (5-15); BUN 23 mg/dL (7-18); BUN/Creat Ratio 16.9 RATIO (10-20); Calcium,Total 8.5 mg/dL (8.5-10.1); Chloride 109 mmol/L (98-107); Creatinine, Serum 1.36 mg/dL (0.70-1.30); EST Glomerular Filtration Rate 54 mL/min (>60); Est Glom Filt Rate - Afr Amer 66 mL/min (>60); Estimated Creatinine Clearance 40.82 ml/min; Glucose 130 mg/dL (74-106); Sodium Level 140 mmol/L (136-145)
[2019-09-16 06:35] LABS: Bedside Glucose 124 mg/dL (70-110)
[2019-09-16] MEDS: Ipratropium/Albuterol Sulfate 3 ML AMPUL.NEB INHALATION ×3 (07:40→19:16)
--- NOTE | 2019-09-16 08:21 | CPS ---
O2 remains on at 2lpm for pt c/o S.O.B.
--- NOTE | 2019-09-16 09:12 | EKG12_ITS ---
Test Reason : RHYTHM Blood Pressure : / mmHG Vent. Rate : 102 BPM Atrial Rate : 102 BPM P-R Int : 140 ms QRS Dur : 098 ms QT Int : 358 ms P-R-T Axes : 050 -08 109 degrees QTc Int : 466 ms Sinus tachycardia Nonspecific ST and T wave abnormality Abnormal ECG When compared with ECG of 13-SEP-2019 05:38, MANUAL COMPARISON REQUIRED, DATA IS UNCONFIRMED Confirmed by OLIVIA JOYA, TANG ([id number]), copy editor JERMAIN BAUTISTA ([id number]) on 09/19/2019 2:42:21 PM Referred By: Carter Coon Confirmed By:ERYN BAKER MD
[2019-09-16] MEDS: Carvedilol 3.125 MG TABLET PO ×2 (09:47→21:26)
[2019-09-16] MEDS: Aspirin 81 MG TAB.CHEW PO (09:47)
[2019-09-16] MEDS: 0.9% Normal Saline 1,000 ML 30 ML IV (11:30)
[2019-09-16] MEDS: Amox/Clavulanate 875 MG Tablet PO ×2 (11:49→17:06)
[2019-09-16] MEDS: Finasteride 5 MG Tablet PO (11:52)
[2019-09-16 12:36] LABS: Bedside Glucose 119 mg/dL (70-110)
--- NOTE | 2019-09-16 12:44 | CHAPLAIN ---
Type of Pastoral Visit _x__ Initial Visit ___ Follow-up Visit ___ On-call Visit ___ General Patient Visit ___ Spiritual Assessment ___ Family Conference ___ Bereavement ___ Rapid Response ___ Code Blue ___ Other (describe below) Pastoral Care Referral From _x__ Patient _x__ Family ___ Nurse ___ Physician ___ Manager [place] ___ Coal Drier Operator ___ Other (describe below) Sacrament/Intervention _x__ Active listening ___ Anointing ___ Caodaism ___ Bereavement ___ Communion _x__ Jli exploration ___ _x__ Life review _x__ Prayer ___ Reconciliation ___ Sacrament of Sick _x__ Supportive presence ___ Wedding ___ Other (describe below) Pastoral Comments
--- NOTE | 2019-09-16 13:12 | PN.RENAL_ITS ---
Patient Problems: Active and Suspected Problems Sepsis (Acute) Acute respiratory failure with hypoxia (Acute) Pneumonia (Acute) JOSE (acute kidney injury) (Acute) Community acquired pneumonia (Acute) Subjective: no sob/cp no c/o - Physical Exam Vitals/I&O's: Vital Signs Temp Pulse Resp BP Pulse Ox 97.6 F L 100 18 124/81 H 97 09/16/19 11:32 09/16/19 12:45 09/16/19 12:45 09/16/19 12:45 09/16/19 12:45 Oxygen Flow Rate (L/min) 2 Oxygen Delivery Method Nasal Cannula Weight: 70.7 kg Body Mass Index (BMI) 25.6 Finger Stick Blood Glucose 227 Intake and Output for Last 24 Hours 09/14/19 09/15/19 09/16/19 23:59 23:59 23:59 Intake Total 670 / 870 1600 / 1600 30 / 30 Output Total 675 / 675 2375 / 2725 750 / 750 Balance -5 / 195 -775 / -1125 -720 / -720 General: Alert, Oriented x3, Cooperative HEENT: Atraumatic, PERRLA, EOMI, Normocephalic Neck: Supple, No JVD, Negative Carotid Bruits Lungs: Clear to auscultation, Normal air movement Cardiovascular: Regular rate, No murmurs Abdomen: Bowel Sounds Present, Soft, Non Tender Extremities: No edema, Capillary Refill Less than 3 Seconds Skin: No rashes, No breakdown Musculoskeletal: No Tenderness to Palpation of Joints or Extremities Neurological: Cranial nerves II-XII grossly intact Psych/Mental Status: Normal Affect, Appropriate Microbiology Past 72 Hours 09/13/19 08:25 Sputum, Expectorated/Coughed Gram Stain - Final 09/13/19 08:25 Sputum, Expectorated/Coughed Respiratory Culture - Final Mixed normal respiratory osorio. No Streptococcus pneumoniae, beta-hemolytic Streptococcus or Staphylococcus aureus isolated. 09/13/19 03:07 Mucosa - Nasopharyngeal Respiratory Panel (PCR) - Final 09/13/19 08:07 Urine, Clean Catch Streptococcus pneumoniae Antigen (M - Final 09/13/19 08:07 Urine, Clean Catch Legionella Antigen - Final Laboratory Results 09/15/19 16:27: POC Glucose 134 H 09/15/19 21:50: POC Glucose 135 H 09/16/19 05:05: Sodium 140, Potassium 4.0, Chloride 109 H, Carbon Dioxide 25.0, Anion Gap 6, BUN 23 H, Creatinine 1.36 H, Estim Creat Clear Calc 40.82, Est GFR (MDRD) Af Amer 66, Est GFR (MDRD) Non-Af 54 L, BUN/Creatinine Ratio 16.9, Glucose 130 H, Calcium 8.5 09/16/19 06:29: POC Glucose 124 H 09/16/19 11:48: POC Glucose 119 H Current Medications Acetaminophen (Tylenol) 650 mg PO Q6H PRN PRN PRN Reason: Pain Score 1-3/Temp > 100.7 F Al Hydroxide/Mg Hydroxide (Mylanta Ii) 30 ml PO Q6H PRN PRN PRN Reason: Gastric Burning Albuterol Sulfate (Ventolin Aerosols) 2.5 mg INHALATION Q2H PRN PRN PRN Reason: SOB/Wheezing Albuterol/Ipratropium (Duoneb) 3 ml INHALATION Q4HWA.RT [facility] Last Admin: 09/16/19 11:15 Dose: 3 ml Documented by: Amoxicillin/Clavulanate Potassium ([facility]in [facility]t) [facility] Last Admin: 09/16/19 11:49 Dose: 875 mg Documented by: Aspirin (Aspirin, Baby) 81 mg PO DAILY@0800 [facility] Last Admin: 09/16/19 09:47 Dose: 81 mg Documented by: Carvedilol (Coreg) 3.125 mg PO BID [facility] Last Admin: 09/16/19 09:47 Dose: 3.125 mg Documented by: Emollient Ointment (Eucerin Intensive Repair) 1 applic TOPICAL BID [facility]; Protocol Last Admin: 09/16/19 11:50 Dose: 1 applicatio Documented by: Enoxaparin Sodium (Lovenox) 70 mg SC Q12 [facility] Last Admin: 09/16/19 11:51 Dose: Not Given Documented by: Finasteride (Proscar) 5 mg PO DAILY [facility] Last Admin: 09/16/19 11:52 Dose: 5 mg Documented by: Glucagon () 1 mg IM .X1 PRN PRN Reason: Hypoglycemia Guaifenesin (Robitussin) 20 ml PO Q4H PRN PRN PRN Reason: COUGH Hydralazine HCl (Apresoline Iv) 10 mg IV Q4H PRN PRN PRN Reason: SBP > 160 Dextrose (Dextrose 10%-Water) 250 mls @ 999 mls/hr IV .Q16M PRN; Protocol PRN Reason: HYPOGLYCEMIA Sodium Chloride () 1,000 mls @ 0 mls/hr IV .Q0M [place] Sodium Chloride () 1,000 mls @ 30 mls/hr IV .[id number] [facility] Last Admin: 09/16/19 11:30 Dose: 30 mls/hr Documented by: Insulin Human Lispro (Humalog Kwikpen (Bkc)) 0 unit SC ACHS [facility]; Protocol Last Admin: 09/16/19 11:52 Dose: Not Given Documented by: Magnesium Hydroxide (Milk Of Magnesia) 30 ml PO DAILY PRN PRN PRN Reason: Constipation Nitroglycerin (Nitrostat) 0.4 mg SUBLINGUAL Q5M PRN PRN Reason: CARDIAC/CHEST PAIN Ondansetron HCl (Zofran) 4 mg IV Q8H PRN PRN PRN Reason: NAUSEA/VOMITING Prochlorperazine Edisylate (Compazine Iv) 5 mg IV Q4H PRN PRN PRN Reason: Breakthrough Nausea/Vomiting Sodium Chloride () 10 - 40 ml IV UD PRN PRN Reason: SALINE FLUSH Last Admin: 09/15/19 12:45 Dose: 10 ml Documented by: Tamsulosin HCl (Flomax) 0.4 mg PO QHS [facility] Last Admin: 09/15/19 21:55 Dose: 0.4 mg Documented by: Throat Lozenges (Cepacol Sore Throat Lozenge) 1 lozenge MUCOUS MEM Q2H PRN PRN PRN Reason: Sore Throat/Cough Medical Necessity - Tobacco Use Smoking Status: Never smoker Tobacco Use: Secondhand Assessment/Plan All Active Problems Sepsis (Acute) Acute respiratory failure with hypoxia (Acute) Pneumonia (Acute) JOSE (acute kidney injury) (Acute) Community acquired pneumonia (Acute) JOSE prerenal possible CRS CKD baseline Creatinine 1.25 right nephrectomy for obstructive uropathy LE edema HF NSTEMI b/l PNA DM Scr 1.36 can use diuretics prn had cardiac cath today use NS 75 ml/hr for 6 hours post cardiac cath Renal ultrasound reviewed avoid Nephrotoxins bp ok monitor on carvedilol 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
--- NOTE | 2019-09-16 13:31 | CASEMGMT ---
SW spoke with patient as he mentioned something to the Nurse Practitioner about rehab. Patient and his friend were just inquiring about cardiac rehab, going somewhere for physical rehab, and home health. Patient said he lives alone and isn't sure what he will be able to do. SW explained he did pretty well with therapy yesterday and his insurance may not approve him to go to a custodial for rehab. SW discussed home health. He has had this in the past and is interested in having the same agency he had before. He said [facility] set it up. He would like nursing, PT, OT, and aide. SW asked if he was on Passport and he did not know what that was. SW explained Passport and he is interested in talking with someone about Passport. SW told him SW can make a referral to [facility]. Someone would call him to set up an appt. Patient did not have therapy today as he was getting a heart cath. SW asked therapy to come back and see him so we can see how he does. Jannette SWAN NEUROLOGICAL PHYSIOTHERAPIST
--- NOTE | 2019-09-16 13:32 | CL.D_ITS ---
Patient Name: REED HARGROVE Study Date: 09/16/2019 Performing: Micheline Hoyos MD Ht: 65 inches 165 cm : 1945 Wt: 156.7 lbs 71 kg Age: 74 Gender: male BSA: 1.78 PROCEDURE(S) PERFORMED [id number] CLINICAL PROFILE AND INDICATIONS Indications: Cardiomyopathy Heart Failure: NYHA Class: 3, Newly Diagnosed: Yes, Heart Failure Type: Systolic Stress/Imaging Stress/Image Study Performed: No CAD Presentations: Other: CHF CONCLUSIONS Mild CAD. No significant . Elevated LVEDP. RECOMMENDATIONS DESCRIPTION OF PROCEDURE The patient arrived to the procedure lab. The risks and benefits of the procedure as well as a full d escription of our services here and current unavailability of surgical backup were fully explained to the patient and/or their significant other prior to the catheterization. The Timeout was completed, verifying the correct patient and procedure. The patient's procedural site was prepped and draped in the usual fashion. Local anesthetic was given subcutaneously to right radial region with Lidocaine 2% . Using a modified Seldinger technique, arterial access was obtained via the right radial artery, a 6 Fr sheath was inserted. Left Coronary Artery selective angiography was performed in multiple views u sing a 5 Fr. JL3.5 catheter. LV to AO pullback pressures were then recorded. Right Coronary Artery se lective angiography was then performed in multiple views using a 5 Fr. JR 4 catheter.The arterial she ath was pulled and a TR Band was applied for hemostasis CORONARY ANGIOGRAPHY DOMINANCE: Right Dominant LEFT HEART ASSESSMENT Left Ventricular Ejection Fraction: Not assessed by LV gram due to CKD Elevated Left Ventricular End Diastolic Pressure LEFT MAIN: Separate origin of LAD, Ramus and LCx from the aorta LEFT ANTERIOR DESCENDING ARTERY: mild diffuse disease CIRCUMFLEX ARTERY: mild diffuse disease RAMUS: mild diffuse disease RIGHT CORONARY ARTERY: mild diffuse disease VALVE FINDINGS: No Aortic Valve Stenosis COMPLICATIONS No Complications PROCEDURE MEDICATIONS Versed 1 mg IV Fentanyl 50 mcg IV Oxygen: 2 L/min via nasal cannula Oxygen: 4 L/min via nasal cannula Heparin given IA 09/16/2019 10:39:53 Verapamil 2.5mg, Ntg 100mcgs, 3000 units of Heparin given IA 09/16/2019 10:39:53 SUMMARY OF HEMODYNAMIC DATA Time AIR REST ECG 10:24:04 LV 143/9, 25 10:42:33 LV 147/1, 23 10:42:39 LVp 131/-11, 23 10:42:58 AOp 136/69 (99) 10:43:03 AO 115/75 (95) SA 10:45:33 Signed By Micheline Hoyos MD On 09/16/2019 13:31:45 Micheline Hoyos MD
--- NOTE | 2019-09-16 14:00 | CASEMGMT ---
MAMI faxed referral to [facility]. Therapy said patient will be fine for home. RN CM aware, MAMI let her know he was interested in [facility] half-way, PT, OT, and an aide. Jannette SWAN MSW
--- NOTE | 2019-09-16 14:32 | PN_ITS ---
<Melony Singer - Last Filed: 09/16/19 14:36> Patient Problems: Active and Suspected Problems Sepsis (Acute) Acute respiratory failure with hypoxia (Acute) Pneumonia (Acute) JOSE (acute kidney injury) (Acute) Community acquired pneumonia (Acute) Subjective: Patient seen and examined. Underwent cardiac catheterization this morning which showed mild coronary disease. Nephrology recommending gentle fluids with repeat BMP in a.m. prior to discharge. Patient denies current symptoms or complaints. - Physical Exam Vitals/I&O's: Vital Signs Temp Pulse Resp BP Pulse Ox 98.1 F 97 18 135/75 H 99 09/16/19 13:15 09/16/19 13:15 09/16/19 13:15 09/16/19 14:15 09/16/19 13:15 Oxygen Flow Rate (L/min) 1 Oxygen Delivery Method Nasal Cannula Weight: 155 lb 13.869 oz Body Mass Index (BMI) 25.6 Finger Stick Blood Glucose 227 Intake and Output for Last 24 Hours 09/14/19 09/15/19 09/16/19 23:59 23:59 23:59 Intake Total 670 / 870 1600 / 1600 30 / 30 Output Total 675 / 675 2375 / 2725 750 / 750 Balance -5 / 195 -775 / -1125 -720 / -720 General: Alert, Oriented x3, Cooperative HEENT: Atraumatic, PERRLA, EOMI, Normocephalic Neck: Supple, No JVD, Negative Carotid Bruits Lungs: Clear to auscultation, Diminished Cardiovascular: Regular rate, Regular Rhythm, Normal S1, Normal S2, No murmurs Abdomen: Bowel Sounds Present, Soft, Non Tender Extremities: No edema, Capillary Refill Less than 3 Seconds Skin: No rashes, No breakdown Musculoskeletal: No Tenderness to Palpation of Joints or Extremities Neurological: Cranial nerves II-XII grossly intact, Neuro grossly intact Psych/Mental Status: Normal Affect, Appropriate Microbiology Past 72 Hours 09/13/19 08:25 Sputum, Expectorated/Coughed Gram Stain - Final 09/13/19 08:25 Sputum, Expectorated/Coughed Respiratory Culture - Final Mixed normal respiratory osorio. No Streptococcus pneumoniae, beta-hemolytic Streptococcus or Staphylococcus aureus isolated. 09/13/19 03:07 Mucosa - Nasopharyngeal Respiratory Panel (PCR) - Final Laboratory Results 09/15/19 16:27: POC Glucose 134 H 09/15/19 21:50: POC Glucose 135 H 09/16/19 05:05: Sodium 140, Potassium 4.0, Chloride 109 H, Carbon Dioxide 25.0, Anion Gap 6, BUN 23 H, Creatinine 1.36 H, Estim Creat Clear Calc 40.82, Est GFR (MDRD) Af Amer 66, Est GFR (MDRD) Non-Af 54 L, BUN/Creatinine Ratio 16.9, Glucose 130 H, Calcium 8.5 09/16/19 06:29: POC Glucose 124 H 09/16/19 11:48: POC Glucose 119 H Current Medications Acetaminophen (Tylenol) 650 mg PO Q6H PRN PRN PRN Reason: Pain Score 1-3/Temp > 100.7 F Al Hydroxide/Mg Hydroxide (Mylanta Ii) 30 ml PO Q6H PRN PRN PRN Reason: Gastric Burning Albuterol Sulfate (Ventolin Aerosols) 2.5 mg INHALATION Q2H PRN PRN PRN Reason: SOB/Wheezing Albuterol/Ipratropium (Duoneb) 3 ml INHALATION Q4HWA.RT [facility] Last Admin: 09/16/19 11:15 Dose: 3 ml Documented by: Amoxicillin/Clavulanate Potassium ([facility]) [facility] Last Admin: 09/16/19 11:49 Dose: 875 mg Documented by: Aspirin (Aspirin, Baby) 81 mg PO DAILY@0800 [facility] Last Admin: 09/16/19 09:47 Dose: 81 mg Documented by: Carvedilol (Coreg) 3.125 mg PO BID [facility] Last Admin: 09/16/19 09:47 Dose: 3.125 mg Documented by: Emollient Ointment (Eucerin Intensive Repair) 1 applic TOPICAL BID [facility]; Protocol Last Admin: 09/16/19 11:50 Dose: 1 applicatio Documented by: Enoxaparin Sodium (Lovenox) 70 mg SC Q12 [facility] Last Admin: 09/16/19 11:51 Dose: Not Given Documented by: Finasteride (Proscar) 5 mg PO DAILY [facility] Last Admin: 09/16/19 11:52 Dose: 5 mg Documented by: Glucagon () 1 mg IM .X1 PRN PRN Reason: Hypoglycemia Guaifenesin (Robitussin) 20 ml PO Q4H PRN PRN PRN Reason: COUGH Hydralazine HCl (Apresoline Iv) 10 mg IV Q4H PRN PRN PRN Reason: SBP > 160 Dextrose (Dextrose 10%-Water) 250 mls @ 999 mls/hr IV .Q16M PRN; Protocol PRN Reason: HYPOGLYCEMIA Sodium Chloride () 1,000 mls @ 0 mls/hr IV .Q0M [facility] Sodium Chloride () 1,000 mls @ 30 mls/hr IV .[id number] [facility] Last Admin: 09/16/19 11:30 Dose: 30 mls/hr Documented by: Sodium Chloride () 1,000 mls @ 75 mls/hr IV .[id number] [facility] Stop: 09/16/19 20:31 Insulin Human Lispro (Humalog Kwikpen (Bkc)) 0 unit SC ACHS [facility]; Protocol Last Admin: 09/16/19 11:52 Dose: Not Given Documented by: Magnesium Hydroxide (Milk Of Magnesia) 30 ml PO DAILY PRN PRN PRN Reason: Constipation Nitroglycerin (Nitrostat) 0.4 mg SUBLINGUAL Q5M PRN PRN Reason: CARDIAC/CHEST PAIN Ondansetron HCl (Zofran) 4 mg IV Q8H PRN PRN PRN Reason: NAUSEA/VOMITING Prochlorperazine Edisylate (Compazine Iv) 5 mg IV Q4H PRN PRN PRN Reason: Breakthrough Nausea/Vomiting Sodium Chloride () 10 - 40 ml IV UD PRN PRN Reason: SALINE FLUSH Last Admin: 09/15/19 12:45 Dose: 10 ml Documented by: Tamsulosin HCl (Flomax) 0.4 mg PO QHS [facility] Last Admin: 09/15/19 21:55 Dose: 0.4 mg Documented by: Throat Lozenges (Cepacol Sore Throat Lozenge) 1 lozenge MUCOUS MEM Q2H PRN PRN PRN Reason: Sore Throat/Cough Medical Necessity - Tobacco Use Smoking Status: Never smoker Tobacco Use: Secondhand Assessment/Plan All Active Problems Sepsis (Acute) Acute respiratory failure with hypoxia (Acute) Pneumonia (Acute) JOSE (acute kidney injury) (Acute) Community acquired pneumonia (Acute) 1. Septic shock secondary to community-acquired pneumonia with associated acute hypoxic respiratory failure-initially requiring BiPAP on admission. Continue supplement oxygen to maintain O2 at or above 90%. Transition to oral antibiotics with Augmentin. Walking pulse ox prior to discharge. 2. 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 Nephrology following. Renal ultrasound demonstrated right nephrectomy. 3. NSTEMI/cardiomyopathy with reduced ejection fraction-echocardiogram demonstrates an EF of 20 to 25% with global hypokinesis. No prior history of heart failure. Cardiology following. Patient underwent cardiac catheterization which demonstrated mild coronary disease. Continue medical management. Continue aspirin, carvedilol. 4. Type 2 diabetes mellitus-oral regimen on hold. Accu-Cheks with sliding scale insulin. 5. BPH-continue Flomax, Proscar regimen. DVT prophylaxis-heparin subcu Discharge planning: Anticipate home with home health tomorrow following repeat assessment of kidney function. This patient was seen by EARL Duval under the supervision of Dr. Butler. <Shirley Butler - Last Filed: 09/16/19 16:00> - Physical Exam Vitals/I&O's: Vital Signs Temp Pulse Resp BP Pulse Ox 97.5 F L 92 18 123/96 H 94 09/16/19 15:00 09/16/19 15:00 09/16/19 15:00 09/16/19 15:00 09/16/19 15:00 Oxygen Flow Rate (L/min) 1 Oxygen Delivery Method Nasal Cannula Weight: 70.7 kg Body Mass Index (BMI) 25.6 Finger Stick Blood Glucose 227 Intake and Output for Last 24 Hours 09/14/19 09/15/19 09/16/19 23:59 23:59 23:59 Intake Total 670 / 870 1600 / 1600 140.5 / 140.5 Output Total 675 / 675 2375 / 2725 750 / 750 Balance -5 / 195 -775 / -1125 -609.5 / -609.5 Microbiology Past 72 Hours 09/13/19 08:25 Sputum, Expectorated/Coughed Gram Stain - Final 09/13/19 08:25 Sputum, Expectorated/Coughed Respiratory Culture - Final Mixed normal respiratory osorio. No Streptococcus pneumoniae, beta-hemolytic Streptococcus or Staphylococcus aureus isolated. 09/13/19 03:07 Mucosa - Nasopharyngeal Respiratory Panel (PCR) - Final Laboratory Results 09/15/19 16:27: POC Glucose 134 H 09/15/19 21:50: POC Glucose 135 H 09/16/19 05:05: Sodium 140, Potassium 4.0, Chloride 109 H, Carbon Dioxide 25.0, Anion Gap 6, BUN 23 H, Creatinine 1.36 H, Estim Creat Clear Calc 40.82, Est GFR (MDRD) Af Amer 66, Est GFR (MDRD) Non-Af 54 L, BUN/Creatinine Ratio 16.9, Glucose 130 H, Calcium 8.5 09/16/19 06:29: POC Glucose 124 H 09/16/19 11:48: POC Glucose 119 H Current Medications Acetaminophen (Tylenol) 650 mg PO Q6H PRN PRN PRN Reason: Pain Score 1-3/Temp > 100.7 F Al Hydroxide/Mg Hydroxide (Mylanta Ii) 30 ml PO Q6H PRN PRN PRN Reason: Gastric Burning Albuterol Sulfate (Ventolin Aerosols) 2.5 mg INHALATION Q2H PRN PRN PRN Reason: SOB/Wheezing Albuterol/Ipratropium (Duoneb) 3 ml INHALATION Q4HWA.RT [facility] Last Admin: 09/16/19 14:45 Dose: Not Given Documented by: Amoxicillin/Clavulanate Potassium (Aug[facility]in Tablet) [facility] Last Admin: 09/16/19 11:49 Dose: 875 mg Documented by: Aspirin (Aspirin, Baby) 81 mg PO DAILY@0800 [facility] Last Admin: 09/16/19 09:47 Dose: 81 mg Documented by: Carvedilol (Coreg) 3.125 mg PO BID [facility] Last Admin: 09/16/19 09:47 Dose: 3.125 mg Documented by: Emollient Ointment (Eucerin Intensive Repair) 1 applic TOPICAL BID [facility]; Protocol Last Admin: 09/16/19 11:50 Dose: 1 applicatio Documented by: Enoxaparin Sodium (Lovenox) 70 mg SC Q12 [facility] Last Admin: 09/16/19 11:51 Dose: Not Given Documented by: Finasteride (Proscar) 5 mg PO DAILY [facility] Last Admin: 09/16/19 11:52 Dose: 5 mg Documented by: Glucagon () 1 mg IM .X1 PRN PRN Reason: Hypoglycemia Guaifenesin (Robitussin) 20 ml PO Q4H PRN PRN PRN Reason: COUGH Hydralazine HCl (Apresoline Iv) 10 mg IV Q4H PRN PRN PRN Reason: SBP > 160 Dextrose (Dextrose 10%-Water) 250 mls @ 999 mls/hr IV .Q16M PRN; Protocol PRN Reason: HYPOGLYCEMIA Sodium Chloride () 1,000 mls @ 0 mls/hr IV .Q0M [facility] Sodium Chloride () 1,000 mls @ 30 mls/hr IV .[id number] [facility] Last Infusion: 09/16/19 15:11 Dose: 0 mls/hr Documented by: Sodium Chloride () 1,000 mls @ 75 mls/hr IV .[id number] [facility] Stop: 09/16/19 20:31 Last Admin: 09/16/19 15:07 Dose: 75 mls/hr Documented by: Insulin Human Lispro (Humalog Kwikpen (Bkc)) 0 unit SC ACHS [facility]; Protocol Last Admin: 09/16/19 11:52 Dose: Not Given Documented by: Magnesium Hydroxide (Milk Of Magnesia) 30 ml PO DAILY PRN PRN PRN Reason: Constipation Nitroglycerin (Nitrostat) 0.4 mg SUBLINGUAL Q5M PRN PRN Reason: CARDIAC/CHEST PAIN Ondansetron HCl (Zofran) 4 mg IV Q8H PRN PRN PRN Reason: NAUSEA/VOMITING Prochlorperazine Edisylate (Compazine Iv) 5 mg IV Q4H PRN PRN PRN Reason: Breakthrough Nausea/Vomiting Sodium Chloride () 10 - 40 ml IV UD PRN PRN Reason: SALINE FLUSH Last Admin: 09/15/19 12:45 Dose: 10 ml Documented by: Tamsulosin HCl (Flomax) 0.4 mg PO QHS [facility] Last Admin: 09/15/19 21:55 Dose: 0.4 mg Documented by: Throat Lozenges (Cepacol Sore Throat Lozenge) 1 lozenge MUCOUS MEM Q2H PRN PRN PRN Reason: Sore Throat/Cough Assessment/Plan r This patient was seen in conjunction with Melony Singer [employer]. I have independently interviewed and examined the patient and reviewed pertinent historical, laboratory, and other data. Please refer to her note for patient's presentation, findings, and recommendations. Patient was seen and examined. Denies chest pain or fever. He had cardiac cath done today that showed minimal disease. On IV fluids. Vitals were reviewed -stable Physical Exam: Gen: Comfortable, not pale, not jaundiced, alert oriented x3 CVS:HS I +II, regular, no murmurs RESP: Diminished at lung bases GI: BS present and normal, nontender, no palpable organs EXT:No edema Labs reviewed: ASSESSMENT: 1. Septic shock 2. CAP 3. Acute hypoxic respiratory failure 4. JOSE 5. NSTEMI 6. Type 2 DM Meds reviewed Plan: Continue on augmentin Continue on IV fluids per nephrology recommendation Wean off oxygen Code Visit Inpatient E&M: 17732 Subs Hosp L2
[2019-09-16] MEDS: 0.9% Normal Saline 1,000 ML 75 ML IV (15:07)
--- NOTE | 2019-09-16 15:21 | CASEMGMT ---
Addendum entered by David Velasquez 09/16/19 16:10: Pt states [employer] is his preference of DME company. Addendum entered by David Velasquez 09/16/19 15:58: Pt/family state they feel pt would benefit from rollator and shower chair. Will need script. Given list of local DME companies. Discussed [id number]. Pt declines at this time. He states there is a meal delivery company several people at his apt complex uses, called [employer] and he wishes to use them instead. Family state they will be assisting pt with grocery shopping/meal preparation as needed. Family wishes for Bree Hancock to be present when discharge instructions are reviewed. RNPranay, made aware and will pass this along to oncoming shifts. Addendum entered by David Velasquez 09/16/19 15:28: Pt's POA/family in room visiting with pt at this time. RN CM in room to discuss further discharge planning and OP therapy with pt. Family voiced much concern with pt doing OP therapy instead of HHC, stating that pt has a long distance to ambulate from his apt to his vehicle and they do feel like this will take a considerable amt of effort for pt. Upon further discussion with pt, he is agreeable to this and states he feels that for at least the first couple of weeks of being home that he is feels that he will be homebound d/t increase in weakness since being hospitalized. Pt states [facility] discharge and then will consider doing OP therapy later, if needed. Noted that pt told SW Jannette, that he would like [facility] aides as well. Pt/family made aware [facility] does not have staffing to provide aide services. Pt states he still prefers [facility] is okay with not having aides at this time. Discussed [facility] with pt and family at this time as well. Pt is agreeable to [facility] referral and made aware this would not begin until after he is discharged from [facility]. Pt given [facility] Rac card. Order placed for [facility] consult and call placed to Serjio @ [facility]/referral made. Call placed to Raiza @ [facility] and referral made. She was made aware anticipate discharge tomorrow. She was also made aware [facility] referral was made for them to follow-up with pt after pt is discharged from [facility]. Dr Butler made aware discharge plan is now for [facility]. Pt/family state wish to for pt to get any discharge meds through [facility] pharmacy. This was entered into computer at this time. Original Note: BOB JEWELL NOTE: To room to talk with pt about discharge planning/needs. Pt does not have home O2. Currently on O2 @ 2 L/M @ [facility]. Will need amb pulse ox prior to discharge. Discussed HHC with pt and [facility]'s requirements of being homebound. Also discussed OP therapy with pt. Pt stated that he does not think that he will be homebound and stated, I think the out-pt therapy is all I'm going to need. Pt states he has improved a lot today compared to yesterday and anticipates he will be even better tomorrow. Pt made aware he could be given script for OP therapy and could take to OP facility of his choice. He states he would prefer going to [facility]. Demi HELMS RN, CM.
--- NOTE | 2019-09-16 15:24 | PCM.PN.PUL ---
Patient Problems: Active and Suspected Problems Sepsis (Acute) Acute respiratory failure with hypoxia (Acute) Pneumonia (Acute) JOSE (acute kidney injury) (Acute) Community acquired pneumonia (Acute) Subjective: Patient did okay overnight. Patient was slightly frustrated with the need for supplemental oxygen yesterday following the walk. Patient currently denies any chest pain, olga pain, nausea or vomiting. Patient is not reporting any cough. Objective: Patient was walked by nurse yesterday and developed a heart rate of 130 bpm with a desaturation to 88% with moderate dyspnea and responded well to 2 L nasal cannula. Patient did have a heart catheterization today and no intervention was required. - Physical Exam Vitals/I&O's: Vital Signs Temp Pulse Resp BP Pulse Ox 36.4 C L 92 18 123/96 H 94 09/16/19 15:00 09/16/19 15:00 09/16/19 15:00 09/16/19 15:00 09/16/19 15:00 Oxygen Flow Rate (L/min) 1 Oxygen Delivery Method Nasal Cannula Weight: 70.7 kg Body Mass Index (BMI) 25.6 Finger Stick Blood Glucose 227 Intake and Output for Last 24 Hours 09/14/19 09/15/19 09/16/19 23:59 23:59 23:59 Intake Total 670 / 870 1600 / 1600 140.5 / 140.5 Output Total 675 / 675 2375 / 2725 750 / 750 Balance -5 / 195 -775 / -1125 -609.5 / -609.5 General: Alert, Oriented x3, Cooperative, No apparent distress, Well developed, Well nourished, - - No conversational dyspnea. HEENT: Atraumatic, PERRLA, EOMI, - - No scleral icterus or injection noted Oral: Moist Mucosa, No Gingival or Mucosal Lesions/ Ulcerations Neck: Supple, No JVD, No Nodes, Trachea Midline Lungs: No rhonchi, No wheeze, No rales, Diminished Cardiovascular: Normal S1, Normal S2, No murmurs, Irregular Rate, No rub noted, No Gallop Abdomen: Bowel Sounds Present, Soft, Non Tender, Non-Distended Extremities: No clubbing, No cyanosis, No edema, Capillary Refill Less than 3 Seconds Skin: No rashes, No breakdown Musculoskeletal: No Tenderness to Palpation of Joints or Extremities Lymphatic: No Cervical, Supraclavicular, or Inguinal Adenopathy Neurological: Cranial nerves II-XII grossly intact, Neuro grossly intact, Motor Exam 5/5 strength throughout Psych/Mental Status: Alert and oriented to time, place, person, mood and affect Microbiology Past 72 Hours 09/13/19 08:25 Sputum, Expectorated/Coughed Gram Stain - Final 09/13/19 08:25 Sputum, Expectorated/Coughed Respiratory Culture - Final Mixed normal respiratory osorio. No Streptococcus pneumoniae, beta-hemolytic Streptococcus or Staphylococcus aureus isolated. 09/13/19 03:07 Mucosa - Nasopharyngeal Respiratory Panel (PCR) - Final Laboratory Results 09/15/19 16:27: POC Glucose 134 H 09/15/19 21:50: POC Glucose 135 H 09/16/19 05:05: Sodium 140, Potassium 4.0, Chloride 109 H, Carbon Dioxide 25.0, Anion Gap 6, BUN 23 H, Creatinine 1.36 H, Estim Creat Clear Calc 40.82, Est GFR (MDRD) Af Amer 66, Est GFR (MDRD) Non-Af 54 L, BUN/Creatinine Ratio 16.9, Glucose 130 H, Calcium 8.5 09/16/19 06:29: POC Glucose 124 H 09/16/19 11:48: POC Glucose 119 H Current Medications Acetaminophen (Tylenol) 650 mg PO Q6H PRN PRN PRN Reason: Pain Score 1-3/Temp > 100.7 F Al Hydroxide/Mg Hydroxide (Mylanta Ii) 30 ml PO Q6H PRN PRN PRN Reason: Gastric Burning Albuterol Sulfate (Ventolin Aerosols) 2.5 mg INHALATION Q2H PRN PRN PRN Reason: SOB/Wheezing Albuterol/Ipratropium (Duoneb) 3 ml INHALATION Q4HWA.RT [facility] Last Admin: 09/16/19 14:45 Dose: Not Given Documented by: Amoxicillin/Clavulanate Potassium ([facility]in [facility]t) [facility] Last Admin: 09/16/19 11:49 Dose: 875 mg Documented by: Aspirin (Aspirin, Baby) 81 mg PO DAILY@0800 [facility] Last Admin: 09/16/19 09:47 Dose: 81 mg Documented by: Carvedilol (Coreg) 3.125 mg PO BID [facility] Last Admin: 09/16/19 09:47 Dose: 3.125 mg Documented by: Emollient Ointment (Eucerin Intensive Repair) 1 applic TOPICAL BID [facility]; Protocol Last Admin: 09/16/19 11:50 Dose: 1 applicatio Documented by: Enoxaparin Sodium (Lovenox) 70 mg SC Q12 [facility] Last Admin: 09/16/19 11:51 Dose: Not Given Documented by: Finasteride (Proscar) 5 mg PO DAILY [facility] Last Admin: 09/16/19 11:52 Dose: 5 mg Documented by: Glucagon () 1 mg IM .X1 PRN PRN Reason: Hypoglycemia Guaifenesin (Robitussin) 20 ml PO Q4H PRN PRN PRN Reason: COUGH Hydralazine HCl (Apresoline Iv) 10 mg IV Q4H PRN PRN PRN Reason: SBP > 160 Dextrose (Dextrose 10%-Water) 250 mls @ 999 mls/hr IV .Q16M PRN; Protocol PRN Reason: HYPOGLYCEMIA Sodium Chloride () 1,000 mls @ 0 mls/hr IV .Q0M [place] Sodium Chloride () 1,000 mls @ 30 mls/hr IV .[id number] [facility] Last Infusion: 09/16/19 15:11 Dose: 0 mls/hr Documented by: Sodium Chloride () 1,000 mls @ 75 mls/hr IV .[id number] [facility] Stop: 09/16/19 20:31 Last Admin: 09/16/19 15:07 Dose: 75 mls/hr Documented by: Insulin Human Lispro (Humalog Kwikpen (Bkc)) 0 unit SC ACHS [facility]; Protocol Last Admin: 09/16/19 11:52 Dose: Not Given Documented by: Magnesium Hydroxide (Milk Of Magnesia) 30 ml PO DAILY PRN PRN PRN Reason: Constipation Nitroglycerin (Nitrostat) 0.4 mg SUBLINGUAL Q5M PRN PRN Reason: CARDIAC/CHEST PAIN Ondansetron HCl (Zofran) 4 mg IV Q8H PRN PRN PRN Reason: NAUSEA/VOMITING Prochlorperazine Edisylate (Compazine Iv) 5 mg IV Q4H PRN PRN PRN Reason: Breakthrough Nausea/Vomiting Sodium Chloride () 10 - 40 ml IV UD PRN PRN Reason: SALINE FLUSH Last Admin: 09/15/19 12:45 Dose: 10 ml Documented by: Tamsulosin HCl (Flomax) 0.4 mg PO QHS [facility] Last Admin: 09/15/19 21:55 Dose: 0.4 mg Documented by: Throat Lozenges (Cepacol Sore Throat Lozenge) 1 lozenge MUCOUS MEM Q2H PRN PRN PRN Reason: Sore Throat/Cough Clinical Impression(s) from Imaging Studies Renal Ultrasound 09/15/19 13:07 IMPRESSION: Status post right nephrectomy. In the right renal fossa, there is a 4.8 cm x 4.8 cm by 3.4 cm fluid collection. Electronically Signed: Girma Ianchellejong, at 9:17 EST , Service support , Medical Necessity - Tobacco Use Smoking Status: Never smoker Tobacco Use: Secondhand Assessment/Plan All Active Problems Sepsis (Acute) Acute respiratory failure with hypoxia (Acute) Pneumonia (Acute) JOSE (acute kidney injury) (Acute) Community acquired pneumonia (Acute) RECOMMENDATIONS: 1. If cultures are negative, antibiotic spectrum can likely be narrowed from my perspective 2. Check walking oximetry prior to discharge. Keep saturations greater than 90% at all times 3. Await cardiology optimization 4. Increase activity as tolerated 5. May benefit from increased rate control IMPRESSIONS: 1. Severe sepsis secondary to presumed community-acquired pneumonia Patient appears to be improving with current therapy. Await culture results. If negative in 48 hours, de-escalation of antibiotics are likely reasonable from a pulmonary perspective. Levaquin versus doxycycline would be appropriate. 2. Acute hypoxemic respiratory failure The patient did have bilateral interstitial infiltrates noted on chest x-ray on presentation to the hospital. He remains on empiric antimicrobial therapy for presumptive community-acquired pneumonia. In addition, he was recently identified as having new onset systolic heart failure, raising the possibility that a component of the findings noted on chest x-ray may have been pulmonary edema. Echocardiogram is consistent with acute on chronic systolic congestive heart failure. Cardiology is following. Patient did have a normal cath except for an elevated LVEDP. This would be exacerbated by tachycardia noted on walking oximetry. Patient may improve with better rate control, but defer to cardiology 3. Acute kidney injury Improved. Continue current supportive measures. Will monitor urine output. No current indication for renal replacement therapy. 4. Indeterminate troponin/newly identified systolic heart failure Continue primary medical management per cardiology recommendations. 5. History of obstructive uropathy/diabetes mellitus/BPH Complicates care, management, recovery and prognosis. Code Visit Inpatient E&M: 33478 Subs Hosp L2
[2019-09-16 17:15] LABS: Bedside Glucose 109 mg/dL (70-110)
--- NOTE | 2019-09-16 20:20 | NURSING ---
pt taken off of and on ra. po 88% while sitting in chair on ra. pt did not walk. pt placed back on at 1lnc. pt c/o sob with off
[2019-09-16 20:40] LABS: Bedside Glucose 148 mg/dL (70-110)
[2019-09-16] MEDS: Tamsulosin HCl 0.4 MG Capsule PO (21:26)
[2019-09-16] MEDS: Enoxaparin 80 MG/0.8 ML Syringe 70 MG SC (21:26)
[2019-09-17] VITALS (10 sets, daily range): BP systolic 128–139; BP diastolic 75–76; PULSE 80–108; RESP 14–20; TEMP 36.6–36.7; O2SAT 88–95
[2019-09-17 06:31] LABS: Anion Gap 6 (5-15); BUN 21 mg/dL (7-18); BUN/Creat Ratio 17.5 RATIO (10-20); Calcium,Total 8.2 mg/dL (8.5-10.1); Chloride 109 mmol/L (98-107); EST Glomerular Filtration Rate 63 mL/min (>60); Est Glom Filt Rate - Afr Amer 76 mL/min (>60); Estimated Creatinine Clearance 46.27 ml/min; Glucose 112 mg/dL (74-106); Potassium 4.2 mmol/L (3.5-5.1); Sodium Level 139 mmol/L (136-145)
[2019-09-17 06:55] LABS: Bedside Glucose 116 mg/dL (70-110)
[2019-09-17] MEDS: Ipratropium/Albuterol Sulfate 3 ML AMPUL.NEB INHALATION ×2 (07:33→10:40)
[2019-09-17] MEDS: Aspirin 81 MG TAB.CHEW PO (08:19)
[2019-09-17] MEDS: Amox/Clavulanate 875 MG Tablet PO (08:19)
--- NOTE | 2019-09-17 09:32 | PCM.PROGNOTE ---
Patient Problems: Active and Suspected Problems History of left heart catheterization (Acute 09/16/19) Sepsis (Acute) Acute respiratory failure with hypoxia (Acute) Pneumonia (Acute) JOSE (acute kidney injury) (Acute) Community acquired pneumonia (Acute) Subjective: no sob/cp - Physical Exam Vitals/I&O's: Vital Signs Temp Pulse Resp BP Pulse Ox 97.8 F 94 14 139/75 H 95 09/17/19 08:14 09/17/19 08:14 09/17/19 08:14 09/17/19 08:14 09/17/19 08:14 Oxygen Flow Rate (L/min) 1 Oxygen Delivery Method Nasal Cannula Weight: 70 kg Body Mass Index (BMI) 25.6 Finger Stick Blood Glucose 227 Intake and Output for Last 24 Hours 09/15/19 09/16/19 09/17/19 23:59 23:59 23:59 Intake Total 1600 / 1600 860.5 / 860.5 1120 / 1120 Output Total 2375 / 2725 2120 / 2120 300 / 300 Balance -775 / -1125 -1259.5 / -1259.5 820 / 820 General: Alert, Oriented x3, Cooperative HEENT: Atraumatic, PERRLA, EOMI, Normocephalic Neck: Supple, No JVD, Negative Carotid Bruits Lungs: Clear to auscultation, Normal air movement Cardiovascular: Regular rate, No murmurs Abdomen: Bowel Sounds Present, Soft, Non Tender Extremities: No edema, Capillary Refill Less than 3 Seconds Skin: No rashes, No breakdown Musculoskeletal: No Tenderness to Palpation of Joints or Extremities Neurological: Cranial nerves II-XII grossly intact Psych/Mental Status: Normal Affect, Appropriate Microbiology Past 72 Hours 09/13/19 08:25 Sputum, Expectorated/Coughed Gram Stain - Final 09/13/19 08:25 Sputum, Expectorated/Coughed Respiratory Culture - Final Mixed normal respiratory osorio. No Streptococcus pneumoniae, beta-hemolytic Streptococcus or Staphylococcus aureus isolated. Laboratory Results 09/16/19 11:48: POC Glucose 119 H 09/16/19 17:04: POC Glucose 109 09/16/19 20:34: POC Glucose 148 H 09/17/19 05:40: Sodium 139, Potassium 4.2, Chloride 109 H, Carbon Dioxide 24.0, Anion Gap 6, BUN 21 H, Creatinine 1.20, Estim Creat Clear Calc 46.27, Est GFR (MDRD) Af Amer 76, Est GFR (MDRD) Non-Af 63, BUN/Creatinine Ratio 17.5, Glucose 112 H, Calcium 8.2 L 09/17/19 06:41: POC Glucose 116 H Current Medications Acetaminophen (Tylenol) 650 mg PO Q6H PRN PRN PRN Reason: Pain Score 1-3/Temp > 100.7 F Al Hydroxide/Mg Hydroxide (Mylanta Ii) 30 ml PO Q6H PRN PRN PRN Reason: Gastric Burning Albuterol Sulfate (Ventolin Aerosols) 2.5 mg INHALATION Q2H PRN PRN PRN Reason: SOB/Wheezing Albuterol/Ipratropium (Duoneb) 3 ml INHALATION Q4HWA.RT [facility] Last Admin: 09/17/19 07:33 Dose: 3 ml Documented by: Amoxicillin/Clavulanate [facility]assium ([facility]) [facility] Last Admin: 09/17/19 08:19 Dose: 875 mg Documented by: Aspirin (Aspirin, Baby) 81 mg PO DAILY@0800 [facility] Last Admin: 09/17/19 08:19 Dose: 81 mg Documented by: Carvedilol (Coreg) 3.125 mg PO BID [facility] Last Admin: 09/16/19 21:26 Dose: 3.125 mg Documented by: Emollient Ointment (Eucerin Intensive Repair) 1 applic TOPICAL BID [facility]; Protocol Last Admin: 09/16/19 21:27 Dose: 1 applicatio Documented by: Enoxaparin Sodium (Lovenox) 70 mg SC Q12 [facility] Last Admin: 09/16/19 21:26 Dose: 70 mg Documented by: Finasteride (Proscar) 5 mg PO DAILY [facility] Last Admin: 09/16/19 11:52 Dose: 5 mg Documented by: Glucagon () 1 mg IM .X1 PRN PRN Reason: Hypoglycemia Guaifenesin (Robitussin) 20 ml PO Q4H PRN PRN PRN Reason: COUGH Hydralazine HCl (Apresoline Iv) 10 mg IV Q4H PRN PRN PRN Reason: SBP > 160 Dextrose (Dextrose 10%-Water) 250 mls @ 999 mls/hr IV .Q16M PRN; Protocol PRN Reason: HYPOGLYCEMIA Sodium Chloride () 1,000 mls @ 0 mls/hr IV .Q0M [facility] Sodium Chloride () 1,000 mls @ 30 mls/hr IV .[id number] [facility] Last Infusion: 09/16/19 15:11 Dose: 0 mls/hr Documented by: Insulin Human Lispro (Humalog Kwikpen (Bkc)) 0 unit SC ACHS [facility]; Protocol Last Admin: 09/17/19 06:42 Dose: Not Given Documented by: Magnesium Hydroxide (Milk Of Magnesia) 30 ml PO DAILY PRN PRN PRN Reason: Constipation Nitroglycerin (Nitrostat) 0.4 mg SUBLINGUAL Q5M PRN PRN Reason: CARDIAC/CHEST PAIN Ondansetron HCl (Zofran) 4 mg IV Q8H PRN PRN PRN Reason: NAUSEA/VOMITING Prochlorperazine Edisylate (Compazine Iv) 5 mg IV Q4H PRN PRN PRN Reason: Breakthrough Nausea/Vomiting Sodium Chloride () 10 - 40 ml IV UD PRN PRN Reason: SALINE FLUSH Last Admin: 09/15/19 12:45 Dose: 10 ml Documented by: Tamsulosin HCl (Flomax) 0.4 mg PO QHS [facility] Last Admin: 09/16/19 21:26 Dose: 0.4 mg Documented by: Throat Lozenges (Cepacol Sore Throat Lozenge) 1 lozenge MUCOUS MEM Q2H PRN PRN PRN Reason: Sore Throat/Cough Medical Necessity - Tobacco Use Smoking Status: Never smoker Tobacco Use: Secondhand Assessment/Plan All Active Problems History of left heart catheterization (Acute 09/16/19) Sepsis (Acute) Acute respiratory failure with hypoxia (Acute) Pneumonia (Acute) JOSE (acute kidney injury) (Acute) Community acquired pneumonia (Acute) JOSE prerenal possible CRS CKD baseline Creatinine 1.25 right nephrectomy for obstructive uropathy LE edema HF NSTEMI b/l PNA DM Scr 1.2 back to baseline can use diuretics prn had cardiac cath yesterday no indication of PRESTON as of today avoid Nephrotoxins bp ok monitor on carvedilol d/w patient
[2019-09-17] MEDS: Finasteride 5 MG Tablet PO (10:00)
[2019-09-17] MEDS: Enoxaparin 80 MG/0.8 ML Syringe 70 MG SC (10:00)
[2019-09-17] MEDS: Carvedilol 3.125 MG TABLET PO (10:00)
--- NOTE | 2019-09-17 10:20 | PCM.PN.PUL ---
Patient Problems: Active and Suspected Problems History of left heart catheterization (Acute 09/16/19) Sepsis (Acute) Acute respiratory failure with hypoxia (Acute) Pneumonia (Acute) JOSE (acute kidney injury) (Acute) Community acquired pneumonia (Acute) Subjective: Patient reports significant improvement in respiratory status compared to yesterday. Patient did report increased urination overnight and is still requiring 1 L nasal cannula at rest. Patient is denying any chest pain at this time. Patient states that he feels I might be strong enough to go home tomorrow. - Physical Exam Vitals/I&O's: Vital Signs Temp Pulse Resp BP Pulse Ox 36.6 C 94 14 139/75 H 95 09/17/19 08:14 09/17/19 08:14 09/17/19 08:14 09/17/19 08:14 09/17/19 08:14 Oxygen Flow Rate (L/min) 1 Oxygen Delivery Method Nasal Cannula Weight: 70 kg Body Mass Index (BMI) 25.6 Finger Stick Blood Glucose 227 Intake and Output for Last 24 Hours 09/15/19 09/16/19 09/17/19 23:59 23:59 23:59 Intake Total 1600 / 1600 860.5 / 860.5 1120 / 1120 Output Total 2375 / 2725 2120 / 2120 300 / 300 Balance -775 / -1125 -1259.5 / -1259.5 820 / 820 General: Alert, Oriented x3, Cooperative, No apparent distress, Well developed, Well nourished, - - Glasses in place. No conversational dyspnea. HEENT: Atraumatic, PERRLA, EOMI, Normocephalic, - - No scleral icterus or injection noted Oral: Moist Mucosa, No Gingival or Mucosal Lesions/ Ulcerations Neck: Supple, No JVD, No Nodes, Trachea Midline Lungs: No rhonchi, No wheeze, No rales, Diminished, - - Fair effort. Cardiovascular: Regular rate, Regular Rhythm, Normal S1, Normal S2, No murmurs, No rub noted, No Gallop Abdomen: Bowel Sounds Present, Soft, Non Tender, Non-Distended Extremities: No clubbing, No cyanosis, Edema - Trace lower extremity Skin: No rashes, No breakdown Musculoskeletal: No Tenderness to Palpation of Joints or Extremities Lymphatic: No Cervical, Supraclavicular, or Inguinal Adenopathy Neurological: Cranial nerves II-XII grossly intact, Neuro grossly intact, Motor Exam 5/5 strength throughout Psych/Mental Status: Alert and oriented to time, place, person, mood and affect Microbiology Past 72 Hours 09/13/19 08:25 Sputum, Expectorated/Coughed Gram Stain - Final 09/13/19 08:25 Sputum, Expectorated/Coughed Respiratory Culture - Final Mixed normal respiratory osorio. No Streptococcus pneumoniae, beta-hemolytic Streptococcus or Staphylococcus aureus isolated. Laboratory Results 09/16/19 11:48: POC Glucose 119 H 09/16/19 17:04: POC Glucose 109 09/16/19 20:34: POC Glucose 148 H 09/17/19 05:40: Sodium 139, Potassium 4.2, Chloride 109 H, Carbon Dioxide 24.0, Anion Gap 6, BUN 21 H, Creatinine 1.20, Estim Creat Clear Calc 46.27, Est GFR (MDRD) Af Amer 76, Est GFR (MDRD) Non-Af 63, BUN/Creatinine Ratio 17.5, Glucose 112 H, Calcium 8.2 L 09/17/19 06:41: POC Glucose 116 H Current Medications Acetaminophen (Tylenol) 650 mg PO Q6H PRN PRN PRN Reason: Pain Score 1-3/Temp > 100.7 F Al Hydroxide/Mg Hydroxide (Mylanta Ii) 30 ml PO Q6H PRN PRN PRN Reason: Gastric Burning Albuterol Sulfate (Ventolin Aerosols) 2.5 mg INHALATION Q2H PRN PRN PRN Reason: SOB/Wheezing Albuterol/Ipratropium (Duoneb) 3 ml INHALATION Q4HWA.RT [facility] Last Admin: 09/17/19 07:33 Dose: 3 ml Documented by: Amoxicillin/Clavulanate [facility] ([facility]) [facility] Last Admin: 09/17/19 08:19 Dose: 875 mg Documented by: Aspirin (Aspirin, Baby) 81 mg PO DAILY@0800 [facility] Last Admin: 09/17/19 08:19 Dose: 81 mg Documented by: Carvedilol (Coreg) 3.125 mg PO BID [facility] Last Admin: 09/17/19 10:00 Dose: 3.125 mg Documented by: Emollient Ointment (Eucerin Intensive Repair) 1 applic TOPICAL BID [facility]; Protocol Last Admin: 09/17/19 10:01 Dose: 1 applicatio Documented by: Enoxaparin Sodium (Lovenox) 70 mg SC Q12 [facility] Last Admin: 09/17/19 10:00 Dose: 70 mg Documented by: Finasteride (Proscar) 5 mg PO DAILY [facility] Last Admin: 09/17/19 10:00 Dose: 5 mg Documented by: Glucagon () 1 mg IM .X1 PRN PRN Reason: Hypoglycemia Guaifenesin (Robitussin) 20 ml PO Q4H PRN PRN PRN Reason: COUGH Hydralazine HCl (Apresoline Iv) 10 mg IV Q4H PRN PRN PRN Reason: SBP > 160 Dextrose (Dextrose 10%-Water) 250 mls @ 999 mls/hr IV .Q16M PRN; Protocol PRN Reason: HYPOGLYCEMIA Sodium Chloride () 1,000 mls @ 0 mls/hr IV .Q0M [facility] Sodium Chloride () 1,000 mls @ 30 mls/hr IV .[id number] [facility] Last Infusion: 09/16/19 15:11 Dose: 0 mls/hr Documented by: Insulin Human Lispro (Humalog Kwikpen (Bkc)) 0 unit SC ACHS [facility]; Protocol Last Admin: 09/17/19 06:42 Dose: Not Given Documented by: Magnesium Hydroxide (Milk Of Magnesia) 30 ml PO DAILY PRN PRN PRN Reason: Constipation Nitroglycerin (Nitrostat) 0.4 mg SUBLINGUAL Q5M PRN PRN Reason: CARDIAC/CHEST PAIN Ondansetron HCl (Zofran) 4 mg IV Q8H PRN PRN PRN Reason: NAUSEA/VOMITING Prochlorperazine Edisylate (Compazine Iv) 5 mg IV Q4H PRN PRN PRN Reason: Breakthrough Nausea/Vomiting Sodium Chloride () 10 - 40 ml IV UD PRN PRN Reason: SALINE FLUSH Last Admin: 09/15/19 12:45 Dose: 10 ml Documented by: Tamsulosin HCl (Flomax) 0.4 mg PO QHS [facility] Last Admin: 09/16/19 21:26 Dose: 0.4 mg Documented by: Throat Lozenges (Cepacol Sore Throat Lozenge) 1 lozenge MUCOUS MEM Q2H PRN PRN PRN Reason: Sore Throat/Cough Medical Necessity - Tobacco Use Smoking Status: Never smoker Tobacco Use: Secondhand Assessment/Plan All Active Problems History of left heart catheterization (Acute 09/16/19) Sepsis (Acute) Acute respiratory failure with hypoxia (Acute) Pneumonia (Acute) JOSE (acute kidney injury) (Acute) Community acquired pneumonia (Acute) RECOMMENDATIONS: 1. Completed 10-day course of antibiotics 2. Check walking oximetry prior to discharge. Keep saturations greater than 90% at all times 3. Continue diuresis if okay with nephrology 4. Increase activity as tolerated 5. Okay to discharge on supplemental oxygen if necessary. This can be reevaluated as an outpatient with volume optimization IMPRESSIONS: 1. Severe sepsis secondary to presumed community-acquired pneumonia Patient appears to be improving with current therapy. Await culture results. If negative in 48 hours, de-escalation of antibiotics are likely reasonable from a pulmonary perspective. Levaquin versus doxycycline would be appropriate. 2. Acute hypoxemic respiratory failure The patient did have bilateral interstitial infiltrates noted on chest x-ray on presentation to the hospital. He remains on empiric antimicrobial therapy for presumptive community-acquired pneumonia. In addition, he was recently identified as having new onset systolic heart failure, raising the possibility that a component of the findings noted on chest x-ray may have been pulmonary edema. Echocardiogram is consistent with acute on chronic systolic congestive heart failure. Cardiology is following. Patient did have a normal cath except for an elevated LVEDP. This would be exacerbated by tachycardia noted on walking oximetry. Patient may improve with better rate control versus diuresis, but defer to cardiology/nephrology 3. Acute kidney injury Improved. Continue current supportive measures. Will monitor urine output. No current indication for renal replacement therapy. 4. Indeterminate troponin/newly identified systolic heart failure Continue primary medical management per cardiology recommendations. 5. History of obstructive uropathy/diabetes mellitus/BPH Complicates care, management, recovery and prognosis. Code Visit Inpatient E&M: 15913 Subs Hosp L2
--- NOTE | 2019-09-17 10:35 | DCINST_ITS ---
- Discharge Diagnoses Current Active Problems: Current Active and Chronic Problems History of left heart catheterization (Acute 09/16/19) Sepsis (Acute) Acute respiratory failure with hypoxia (Acute) Pneumonia (Acute) Diabetes mellitus, type II (Chronic) PVD (peripheral vascular disease) (Chronic) BPH (benign prostatic hyperplasia) (Chronic) History of nephrectomy, unilateral (Chronic) JOSE (acute kidney injury) (Acute) Community acquired pneumonia (Acute) You will use the following diet at home:: Cardiac Discharge Activity: Return to Normal Activity Call your doctor if you observe: Shortness of breath, Dizziness, Fainting spells, Chest pain Allergies/Adverse Reactions: Allergies Sulfa (Sulfonamide Antibiotics) Allergy (Verified 09/13/19 01:22) Swelling acetaminophen [From [facility]] Adverse Reaction (Verified 09/13/19 01:22) confusion hydrocodone bitartrate [From [facility]] Adverse Reaction (Verified 09/13/19 01:22) confusion Medications to take at Discharge Tamsulosin HCl [Flomax] 0.4 mg PO QHS 04/21/15 Multivit-Min/FA/Lycopen/Lutein [Centrum Silver Tablet] 1 each PO DAILY 05/12/15 Finasteride 1 tab PO DAILY 09/13/19 metFORMIN HCl [Glucophage] 500 mg PO DAILY 09/13/19 Amox/Clavulanate Tablet [Augmentin Tablet] 875 mg PO Q12H #10 tab 09/17/19 Aspirin [Aspirin, Baby] 81 mg PO DAILY@0800 #30 tab.chew 09/17/19 Carvedilol [Coreg (Beta Cornelius)] 3.125 mg PO BID #60 tab 09/17/19 The following prescriptions were given: Aspirin [Aspirin, Baby] 81 mg PO DAILY@0800 #30 tab.chew Transmission Status: Pending to [facility] Amox/Clavulanate Tablet [Augmentin Tablet] 875 mg PO Q12H #10 tab Transmission Status: Received by [facility] Carvedilol [Coreg (Beta Cornelius)] 3.125 mg PO BID #60 tab Transmission Status: Pending to [facility] Primary Care Physician: Carter Coon DO [Primary Care Provider] - Please follow up with your Primary Care Physician in: 1 Week Test Results: Test results from this visit will be discussed in further detail at your follow- up appointment, if applicable. Please Follow Up With: Alireza Olmos MD When: 1-2 Weeks, may see LANGUAGE INSTRUCTOR/PA Please Follow Up With: Chas Hoyos MD When: 1-2 Weeks Please Follow Up With: Primary Steamer Tender When: 1 Week Proposed Discharge Date: 09/17/19
--- NOTE | 2019-09-17 10:49 | PCM.DC.SUM ---
<Melony Singer - Last Filed: 09/17/19 11:51> Discharge Date and Diagnosis Date of Admission: 09/13/19 Date of Discharge: 09/17/19 - Primary Discharge Diagnosis Active and Suspected Problems 1. Septic shock secondary to community-acquired pneumonia with associated acute hypoxic respiratory failure 2. Acute kidney injury on CKD stage III 3. NSTEMI/cardiomyopathy with reduced ejection fraction 4. Type 2 diabetes mellitus 5. BPH - Secondary Discharge Diagnosis Chronic Problems Diabetes mellitus, type II (Chronic) PVD (peripheral vascular disease) (Chronic) BPH (benign prostatic hyperplasia) (Chronic) History of nephrectomy, unilateral (Chronic) Hospital Course and Treatment Imaging Results: Diagnostic Data Chest X-Ray 09/13/19 01:46 IMPRESSION: Bilateral lower lobe pneumonia. Electronically Signed: Paris Espinoza MD at 2:32 EST , Service support , Renal Ultrasound 09/15/19 13:07 IMPRESSION: Status post right nephrectomy. In the right renal fossa, there is a 4.8 cm x 4.8 cm by 3.4 cm fluid collection. Electronically Signed: Girma Ruiz at 9:17 EST , Service support , Dr. Mendes- Cardiology Dr. Henderson- Pulmonary Medicine Dr. Ruiz- Nephrology Operations: None Procedures: 2-D Echocardiogram, Cardiac catheterization Summary of Care Provided: The patient is a 74 year old M admitted 09/13/2019 due to dyspnea and cough. 1. Septic shock secondary to community-acquired pneumonia with associated acute hypoxic respiratory failure-initially requiring BiPAP on admission. Patient will require supplemental oxygen at discharge. He is ambulatory in the home. Patient will require 2 L nasal cannula at rest and with ambulation. Continue supplement oxygen to maintain O2 at or above 90%. Transition to oral antibiotics with Augmentin for a total of 10 days of antibiotic therapy. Follow-up with pulmonary medicine and primary care provider in 1 to 2 weeks. 2. 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 Nephrology consulted during admission. Renal ultrasound demonstrated right nephrectomy. Acute kidney injury resolved, creatinine now normal. Follow-up with primary digital media intern in 1 week. 3. NSTEMI/cardiomyopathy with reduced ejection fraction-echocardiogram demonstrates an EF of 20 to 25% with global hypokinesis. No prior history of heart failure. Cardiology consulted during admission. Patient underwent cardiac catheterization which demonstrated mild coronary disease. Continue medical management. Continue aspirin, carvedilol. Follow-up with cardiology in 1 to 2 weeks. 4. Type 2 diabetes mellitus-continue home oral regimen. 5. BPH-continue Flomax, Proscar regimen. General: Alert, Oriented x3, Cooperative HEENT: Atraumatic, PERRLA, EOMI, Normocephalic Neck: Supple, No JVD, Negative Carotid Bruits Lungs: Clear to auscultation, Diminished Cardiovascular: Regular rate, Regular Rhythm, Normal S1, Normal S2, No murmurs Abdomen: Bowel Sounds Present, Soft, Non Tender Extremities: No edema, Capillary Refill Less than 3 Seconds Skin: No rashes, No breakdown Musculoskeletal: No Tenderness to Palpation of Joints or Extremities Neurological: Cranial nerves II-XII grossly intact, Neuro grossly intact Psych/Mental Status: Normal Affect, Appropriate Patient seen and examined prior to discharge. Physical assessment as noted above. Patient is stable for discharge with follow up recommendations as noted above. This patient was seen by EARL Duval under the supervision of Dr. Butler. - Physical Exam Vitals/I&O's: Vital Signs Temp Pulse Resp BP Pulse Ox 97.8 F 94 14 139/75 H 95 09/17/19 08:14 09/17/19 08:14 09/17/19 08:14 09/17/19 08:14 09/17/19 08:14 Oxygen Flow Rate (L/min) 1 Oxygen Delivery Method Nasal Cannula Weight: 154 lb 5.177 oz Body Mass Index (BMI) 25.6 Finger Stick Blood Glucose 227 Intake and Output for Last 24 Hours 09/15/19 09/16/19 09/17/19 23:59 23:59 23:59 Intake Total 1600 / 1600 860.5 / 860.5 1120 / 1120 Output Total 2375 / 2725 2120 / 2120 300 / 300 Balance -775 / -1125 -1259.5 / -1259.5 820 / 820 Microbiology Past 72 Hours 09/13/19 08:25 Sputum, Expectorated/Coughed Gram Stain - Final 09/13/19 08:25 Sputum, Expectorated/Coughed Respiratory Culture - Final Mixed normal respiratory osorio. No Streptococcus pneumoniae, beta-hemolytic Streptococcus or Staphylococcus aureus isolated. Laboratory Results 09/16/19 11:48: POC Glucose 119 H 09/16/19 17:04: POC Glucose 109 09/16/19 20:34: POC Glucose 148 H 09/17/19 05:40: Sodium 139, Potassium 4.2, Chloride 109 H, Carbon Dioxide 24.0, Anion Gap 6, BUN 21 H, Creatinine 1.20, Estim Creat Clear Calc 46.27, Est GFR (MDRD) Af Amer 76, Est GFR (MDRD) Non-Af 63, BUN/Creatinine Ratio 17.5, Glucose 112 H, Calcium 8.2 L 09/17/19 06:41: POC Glucose 116 H Current Medications Acetaminophen (Tylenol) 650 mg PO Q6H PRN PRN PRN Reason: Pain Score 1-3/Temp > 100.7 F Al Hydroxide/Mg Hydroxide (Mylanta Ii) 30 ml PO Q6H PRN PRN PRN Reason: Gastric Burning Albuterol Sulfate (Ventolin Aerosols) 2.5 mg INHALATION Q2H PRN PRN PRN Reason: SOB/Wheezing Albuterol/Ipratropium (Duoneb) 3 ml INHALATION Q4HWA.RT [facility] Last Admin: 09/17/19 07:33 Dose: 3 ml Documented by: Amoxicillin/Clavulanate [facility] Admin: 09/17/19 08:19 Dose: 875 mg Documented by: Aspirin (Aspirin, Baby) 81 mg PO DAILY@0800 [facility] Last Admin: 09/17/19 08:19 Dose: 81 mg Documented by: Carvedilol (Coreg) 3.125 mg PO BID [facility] Last Admin: 09/17/19 10:00 Dose: 3.125 mg Documented by: Emollient Ointment (Eucerin Intensive Repair) 1 applic TOPICAL BID [facility]; Protocol Last Admin: 09/17/19 10:01 Dose: 1 applicatio Documented by: Enoxaparin Sodium (Lovenox) 70 mg SC Q12 [facility] Last Admin: 09/17/19 10:00 Dose: 70 mg Documented by: Finasteride (Proscar) 5 mg PO DAILY [facility] Last Admin: 09/17/19 10:00 Dose: 5 mg Documented by: Glucagon () 1 mg IM .X1 PRN PRN Reason: Hypoglycemia Guaifenesin (Robitussin) 20 ml PO Q4H PRN PRN PRN Reason: COUGH Hydralazine HCl (Apresoline Iv) 10 mg IV Q4H PRN PRN PRN Reason: SBP > 160 Dextrose (Dextrose 10%-Water) 250 mls @ 999 mls/hr IV .Q16M PRN; Protocol PRN Reason: HYPOGLYCEMIA Sodium Chloride () 1,000 mls @ 0 mls/hr IV .Q0M [place] Sodium Chloride () 1,000 mls @ 30 mls/hr IV .[id number] [facility] Last Infusion: 09/16/19 15:11 Dose: 0 mls/hr Documented by: Insulin Human Lispro (Humalog Kwikpen (Bkc)) 0 unit SC ACHS [facility]; Protocol Last Admin: 09/17/19 06:42 Dose: Not Given Documented by: Magnesium Hydroxide (Milk Of Magnesia) 30 ml PO DAILY PRN PRN PRN Reason: Constipation Nitroglycerin (Nitrostat) 0.4 mg SUBLINGUAL Q5M PRN PRN Reason: CARDIAC/CHEST PAIN Ondansetron HCl (Zofran) 4 mg IV Q8H PRN PRN PRN Reason: NAUSEA/VOMITING Prochlorperazine Edisylate (Compazine Iv) 5 mg IV Q4H PRN PRN PRN Reason: Breakthrough Nausea/Vomiting Sodium Chloride () 10 - 40 ml IV UD PRN PRN Reason: SALINE FLUSH Last Admin: 09/15/19 12:45 Dose: 10 ml Documented by: Tamsulosin HCl (Flomax) 0.4 mg PO QHS [facility] Last Admin: 09/16/19 21:26 Dose: 0.4 mg Documented by: Throat Lozenges (Cepacol Sore Throat Lozenge) 1 lozenge MUCOUS MEM Q2H PRN PRN PRN Reason: Sore Throat/Cough Discharge Diet: Low fat/ Low Cholesterol Discharge Activity: Return to Normal Activity Call your doctor if you observe: Shortness of breath, Dizziness, Fainting spells, Chest pain Home Medications: Medications to take at Discharge Tamsulosin HCl [Flomax] 0.4 mg PO QHS 04/21/15 Multivit-Min/FA/Lycopen/Lutein [Centrum Silver Tablet] 1 each PO DAILY 05/12/15 Finasteride 1 tab PO DAILY 09/13/19 metFORMIN HCl [Glucophage] 500 mg PO DAILY 09/13/19 Amox/Clavulanate Tablet [Augmentin Tablet] 875 mg PO Q12H #10 tab 09/17/19 Aspirin [Aspirin, Baby] 81 mg PO DAILY@0800 #30 tab.chew 09/17/19 Carvedilol [Coreg (Beta Cornelius)] 3.125 mg PO BID #60 tab 09/17/19 Following Prescrptions Were Given to Patient: Aspirin [Aspirin, Baby] 81 mg PO DAILY@0800 #30 tab.chew Transmission Status: Received by [facility] Amox/Clavulanate Tablet [Augmentin Tablet] 875 mg PO Q12H #10 tab Transmission Status: Received by [facility] Carvedilol [Coreg (Beta Cornelius)] 3.125 mg PO BID #60 tab Transmission Status: Received by [facility] Primary Care Physician: Carter Coon DO [Primary Care Provider] - Please follow up with your Primary Care Physician in: 1 Week Please Follow Up With: Alireza Olmos MD When: 1-2 Weeks, may see OVEN DRIER TENDER/PA Please Follow Up With: Chas Hoyos MD When: 1-2 Weeks Please Follow Up With: Primary Prescription Clerk Lenses When: 1 Week Disposition: Home with Home Health Minutes spent on discharge:: 35 Patient Condition:: Stable Medical Necessity - Tobacco Use Smoking Status: Never smoker Tobacco Use: Secondhand Meaningful Use Info Meaningful Use Diagnoses (Choose all that apply): AMI - AMI/Post PCI/Angioplasty Aspirin given w/in 24hrs of arrival?: Yes ASA at discharge?: Yes Statins at discharge?: Yes Reason statins not ordered:: Drug Interaction Alex/ARB at discharge?: Yes Beta Cornelius at discharge?: Yes Done w/ Acute UT measure.: Yes <Shirley Butler - Last Filed: 09/17/19 14:14> Discharge Date and Diagnosis - Secondary Discharge Diagnosis Chronic Problems Diabetes mellitus, type II (Chronic) PVD (peripheral vascular disease) (Chronic) BPH (benign prostatic hyperplasia) (Chronic) History of nephrectomy, unilateral (Chronic) Hospital Course and Treatment Summary of Care Provided: This patient was seen in conjunction with Melony Singer NP. I have independently interviewed and examined the patient and reviewed pertinent historical, laboratory, and other data. Please refer to her note for patient's presentation, findings, and recommendations. 74-year-old male with past medical history of type II DM, PVD, scoliosis who was admitted with cough and progressive shortness of breath. His management was that of septic shock secondary to community-acquired pneumonia. Patient was found to require oxygen. He was initially on BiPAP on admission in the ICU. He was later transitioned to nasal cannula oxygen. He was started on IV antibiotics with gradual transition to Augmentin. Patient also had elevated troponins and was managed as acute NSTEMI. He was also found to have acute kidney injury. Nephrology was also consulted. His kidney injury improved patient underwent cardiac cath that showed mild CAD. He did qualify for oxygen on discharge. He will be followed up by home health team. He will follow-up with his primary care doctor as well as the pulmonary medicine physician. Physical Exam: Gen: Comfortable, not pale, not jaundiced, alert oriented x3, on 2L oxygen CVS:HS I +II, regular, no murmurs RESP: Diminished at lung bases GI: BS present and normal, nontender, no palpable organs EXT:No edema - Physical Exam Vitals/I&O's: Vital Signs Temp Pulse Resp BP Pulse Ox 97.8 F 108 H 20 H 139/75 H 91 09/17/19 08:14 09/17/19 12:34 09/17/19 10:40 09/17/19 08:14 09/17/19 11:04 Oxygen Flow Rate (L/min) [ 2 AMBULATION with Oxygen] Oxygen Flow Rate (L/min) 1 Oxygen Delivery Method Nasal Cannula Weight: 70 kg Body Mass Index (BMI) 25.6 Finger Stick Blood Glucose 227 Intake and Output for Last 24 Hours 09/15/19 09/16/19 09/17/19 23:59 23:59 23:59 Intake Total 1600 / 1600 860.5 / 860.5 1120 / 1120 Output Total 2375 / 2725 2120 / 2120 300 / 300 Balance -775 / -1125 -1259.5 / -1259.5 820 / 820 Microbiology Past 72 Hours 09/13/19 08:25 Sputum, Expectorated/Coughed Gram Stain - Final 09/13/19 08:25 Sputum, Expectorated/Coughed Respiratory Culture - Final Mixed normal respiratory osorio. No Streptococcus pneumoniae, beta-hemolytic Streptococcus or Staphylococcus aureus isolated. Laboratory Results 09/16/19 17:04: POC Glucose 109 09/16/19 20:34: POC Glucose 148 H 09/17/19 05:40: Sodium 139, Potassium 4.2, Chloride 109 H, Carbon Dioxide 24.0, Anion Gap 6, BUN 21 H, Creatinine 1.20, Estim Creat Clear Calc 46.27, Est GFR (MDRD) Af Amer 76, Est GFR (MDRD) Non-Af 63, BUN/Creatinine Ratio 17.5, Glucose 112 H, Calcium 8.2 L 09/17/19 06:41: POC Glucose 116 H 09/17/19 11:07: POC Glucose 115 H Current Medications Acetaminophen (Tylenol) 650 mg PO Q6H PRN PRN PRN Reason: Pain Score 1-3/Temp > 100.7 F Al Hydroxide/Mg Hydroxide (Mylanta Ii) 30 ml PO Q6H PRN PRN PRN Reason: Gastric Burning Albuterol Sulfate (Ventolin Aerosols) 2.5 mg INHALATION Q2H PRN PRN PRN Reason: SOB/Wheezing Albuterol/Ipratropium (Duoneb) 3 ml INHALATION Q4HWA.RT [facility] Last Admin: 09/17/19 10:40 Dose: 3 ml Documented by: Amoxicillin/Clavulanate [facility] ([facility]in [facility]) [facility] Last Admin: 09/17/19 08:19 Dose: 875 mg Documented by: Aspirin (Aspirin, Baby) 81 mg PO DAILY@0800 [facility] Last Admin: 09/17/19 08:19 Dose: 81 mg Documented by: Carvedilol (Coreg) 3.125 mg PO BID [facility] Last Admin: 09/17/19 10:00 Dose: 3.125 mg Documented by: Emollient Ointment (Eucerin Intensive Repair) 1 applic TOPICAL BID [facility]; Protocol Last Admin: 09/17/19 10:01 Dose: 1 applicatio Documented by: Enoxaparin Sodium (Lovenox) 70 mg SC Q12 [facility] Last Admin: 09/17/19 10:00 Dose: 70 mg Documented by: Finasteride (Proscar) 5 mg PO DAILY [facility] Last Admin: 09/17/19 10:00 Dose: 5 mg Documented by: Glucagon () 1 mg IM .X1 PRN PRN Reason: Hypoglycemia Guaifenesin (Robitussin) 20 ml PO Q4H PRN PRN PRN Reason: COUGH Hydralazine HCl (Apresoline Iv) 10 mg IV Q4H PRN PRN PRN Reason: SBP > 160 Dextrose (Dextrose 10%-Water) 250 mls @ 999 mls/hr IV .Q16M PRN; Protocol PRN Reason: HYPOGLYCEMIA Sodium Chloride () 1,000 mls @ 0 mls/hr IV .Q0M [place] Sodium Chloride () 1,000 mls @ 30 mls/hr IV .[id number] [facility] Last Infusion: 09/16/19 15:11 Dose: 0 mls/hr Documented by: Insulin Human Lispro (Humalog Kwikpen (Bkc)) 0 unit SC ACHS [facility]; Protocol Last Admin: 09/17/19 11:07 Dose: Not Given Documented by: Magnesium Hydroxide (Milk Of Magnesia) 30 ml PO DAILY PRN PRN PRN Reason: Constipation Nitroglycerin (Nitrostat) 0.4 mg SUBLINGUAL Q5M PRN PRN Reason: CARDIAC/CHEST PAIN Ondansetron HCl (Zofran) 4 mg IV Q8H PRN PRN PRN Reason: NAUSEA/VOMITING Prochlorperazine Edisylate (Compazine Iv) 5 mg IV Q4H PRN PRN PRN Reason: Breakthrough Nausea/Vomiting Sodium Chloride () 10 - 40 ml IV UD PRN PRN Reason: SALINE FLUSH Last Admin: 09/15/19 12:45 Dose: 10 ml Documented by: Tamsulosin HCl (Flomax) 0.4 mg PO QHS [facility] Last Admin: 09/16/19 21:26 Dose: 0.4 mg Documented by: Throat Lozenges (Cepacol Sore Throat Lozenge) 1 lozenge MUCOUS MEM Q2H PRN PRN PRN Reason: Sore Throat/Cough Code Visit Inpatient E&M: 21010 [facility]
[2019-09-17 11:11] LABS: Bedside Glucose 115 mg/dL (70-110)
--- NOTE | 2019-09-17 12:15 | CASEMGMT ---
Pt does qualify for home oxygen at this time and also would like a rollator and shower chair per Ilda ROJAS CM. Pt also would like to use [facility] as previously discussed with Ilda ROJAS CM. Referrals faxed to [facility] at this time for 2liters home oxygen and equipment previously mentioned. Pt was already set up for [facility] thru [facility] and Raiza at [facility] aware that pt is being discharged today, voices understanding. Call to [facility] and they are aware of referrals and discharge, voice understanding. Bonita ROJAS CM
--- NOTE | 2019-09-17 14:40 | PHA.DC.MC ---
Pharmacy Service has performed discharge medication reconciliation and counseling for this patient. 1. ASPIRIN 81MG PO DAILY 2. AMOXICILLIN/CLAVULANATE 875MG PO BID X 5 DAYS 3. CARVEDILOL 3.125MG PO BID The patient's discharge medication list was reviewed for discrepancies and discrepancies were resolved. Home Medications Tamsulosin HCl [Flomax] 0.4 mg PO QHS 04/21/15 Multivit-Min/FA/Lycopen/Lutein [Centrum Silver Tablet] 1 each PO DAILY 05/12/15 Finasteride 1 tab PO DAILY 09/13/19 metFORMIN HCl [Glucophage] 500 mg PO DAILY 09/13/19 Amox/Clavulanate Tablet [Augmentin Tablet] 875 mg PO Q12H #10 tab 09/17/19 Aspirin [Aspirin, Baby] 81 mg PO DAILY@0800 #30 tab.chew 09/17/19 Carvedilol [Coreg (Beta Cornelius)] 3.125 mg PO BID #60 tab 09/17/19 The patient was counseled on the following discharge medications and changes in medications for homegoing were reviewed. The Reason for Use, instructions for use, and potential side effects were reviewed for all new medications. The patient's questions regarding all of their medications were answered. The patient was able to verbally demonstrate an understanding of their discharge medications.
--- NOTE | 2019-09-17 16:18 | PCM.PN.CARD ---
Subjectve: Doing well. Creatinine is 1.2 today. Objective: Vital Signs Temp Pulse Resp BP Pulse Ox 98 F 105 H 17 128/76 H 94 09/17/19 14:51 09/17/19 14:51 09/17/19 14:51 09/17/19 14:51 09/17/19 14:51 Oxygen Flow Rate (L/min) [ 2 AMBULATION with Oxygen] Oxygen Flow Rate (L/min) 2 Oxygen Delivery Method Nasal Cannula Weight: 154 lb 5.177 oz Body Mass Index (BMI) 25.6 Finger Stick Blood Glucose 227 Intake and Output for Last 24 Hours 09/15/19 09/16/19 09/17/19 23:59 23:59 23:59 Intake Total 1600 / 1600 860.5 / 860.5 1120 / 1120 Output Total 2375 / 2725 2120 / 2120 300 / 300 Balance -775 / -1125 -1259.5 / -1259.5 820 / 820 General: Awake, Alert, Oriented x 3 HEENT: Atraumatic Oral: Moist Mucosa Neck: Supple Lungs: Clear to auscultation Cardiovascular: Normal S1, Normal S2 Abdomen: Soft Skin: No Rashes Psych/Mental Status: Appropriate 09/17/19 05:40: Sodium 139, Potassium 4.2, Chloride 109 H, Carbon Dioxide 24.0, Anion Gap 6, BUN 21 H, Creatinine 1.20, Est GFR (MDRD) Af Amer 76, Est GFR (MDRD) Non-Af 63, BUN/Creatinine Ratio 17.5, Glucose 112 H, Calcium 8.2 L Rhythm: EKG: ECHO: Stress Test: Cardiac Cath: PCI: CT Surgery: Holter monitor: EPS: PPM: CXR: Chest CT Scan: Medical Necessity - Tobacco Use Smoking Status: Never smoker Tobacco Use: Secondhand Assessment/Plan 1. LV dysfunction: Patient has severe LV dysfunction. He has nonischemic cardiomyopathy. No MARTÍN inhibitor at this time because of CKD. We may be able to consider this as an outpatient. At this time since patient just had coronary angiography yesterday it may be better to wait and see how his kidney function responds over the next few days. Advised the patient to hold the metformin for 2 to 3 days. Follow-up as an outpatient. Okay to discharge from a cardiac standpoint.
== END 2019-09-17 15:33 | disposition home or self-care (01) | DRG 871 ==
LOC: ED 02:47 → PCU 03:02 → ICU 08:48 → PCU 09-14 14:11
PROVIDERS: Internal Medicine; Internal Medicine Critical Care Medicine; Nurse Practitioner Family; Admitting Provider Family Medicine; Emergency Provider Emergency Medicine; PCP Family Medicine; Referring Provider Family Medicine; Visit Provider Internal Medicine
DX: A41.9 Sepsis, unspecified organism (principal); J18.9 Pneumonia, unspecified organism; J96.01 Acute respiratory failure with hypoxia; I21.4 Non-ST elevation (NSTEMI) myocardial infarction; R65.21 Severe sepsis with septic shock; I50.23 Acute on chronic systolic (congestive) heart failure; N17.9 Acute kidney failure, unspecified; I42.8 Other cardiomyopathies; Q67.5 Congenital deformity of spine; I25.10 Atherosclerotic heart disease of native coronary artery without angina pectoris; E11.22 Type 2 diabetes mellitus with diabetic chronic kidney disease; N18.3 Chronic kidney disease, stage 3 (moderate); N40.0 Benign prostatic hyperplasia without lower urinary tract symptoms; E11.51 Type 2 diabetes mellitus with diabetic peripheral angiopathy without gangrene; E86.0 Dehydration; Z90.5 Acquired absence of kidney; Z79.82 Long term (current) use of aspirin; Z79.84 Long term (current) use of oral hypoglycemic drugs; Z79.899 Other long term (current) drug therapy; Z77.22 Contact with and (suspected) exposure to environmental tobacco smoke (acute) (chronic)
CPT/HCPCS: 36415; 36600; 71046; 76770; 80048; 80061; 82803; 82962; 83605; 83735; 83880; 84484; 85025; 85610; 85730; 87040; 87070; 87205; 87449; 87633; 87641; 93005; 93306; 93454; 94002; 94003; 94640; 97116; 97162; 97166; 97530; 99152; 99153; 99251; 99285; J7030; J7040; J7050; J7120; Q9957; Q9967; A4216; C1769; C1894; C8929; G0463; J1940

== ENCOUNTER → 2019-09-26 13:58 | Outpatient (CLI) | payer MEDICARE, MEDICAID, SELFPAY ==
[2019-09-25 09:55] VITALS: BMI 25.6
--- NOTE | 2019-09-26 14:01 | RAD_ITS ---
STUDY: X-RAY - RIGHT CALCANEUS REASON FOR EXAM: Male, 74 years old. Pain, 6 months TECHNIQUE: 2 view(s) of the calcaneus were obtained. COMPARISON: None. FINDINGS: Normal calcaneus. The calcaneus exhibits normal mineralization with no plantar calcaneal spur, no Achilles insertion enthesophyte, normal trabecular matrix. Normal subtalar joint. Normal tibiotalar joint. Normal intertarsal articulations. Normal soft tissues of the heel pad. RAD/Calcaneus min 2 Views IMPRESSION: Normal calcaneus. Electronically Signed: Uriel Sims MD at 10:16 EST Tel , Service support ,
== END ==
PROVIDERS: PCP Family Medicine; Referring Provider Family Medicine; Visit Provider Family Medicine
DX: M79.671 Pain in right foot (principal)
CPT/HCPCS: 73650

== ENCOUNTER → 2019-09-29 12:39 | Outpatient (CLI) | payer MEDICARE, MEDICAID, SELFPAY ==
[2019-09-25 09:55] VITALS: BMI 25.6
[2019-09-29 16:30] LABS: Anion Gap 3 (5-15); BUN 19 mg/dL (7-18); BUN/Creat Ratio 15.6 RATIO (10-20); Calcium,Total 8.8 mg/dL (8.5-10.1); Chloride 103 mmol/L (98-107); Creatinine, Serum 1.22 mg/dL (0.70-1.30); EST Glomerular Filtration Rate 62 mL/min (>60); Est Glom Filt Rate - Afr Amer 74 mL/min (>60); Glucose 106 mg/dL (74-106); Potassium 4.3 mmol/L (3.5-5.1); Sodium Level 138 mmol/L (136-145)
== END ==
PROVIDERS: PCP Family Medicine; Referring Provider Internal Medicine; Visit Provider Internal Medicine
DX: N17.9 Acute kidney failure, unspecified (principal)
CPT/HCPCS: 36415; 80048

== ENCOUNTER 2019-10-16 14:55 | Inpatient (IN) | payer MEDICARE, MEDICAID, SELFPAY ==
[2019-09-29 13:28] VITALS: BMI 25.9
[2019-10-16] VITALS (28 sets, daily range): BP systolic 107–186; BP diastolic 58–110; PULSE 52–135; RESP 12–48; TEMP 35.7–36.6; O2SAT 76–100; BMI 28.5; BMI 27.8
--- NOTE | 2019-10-16 15:00 | EKG12_ITS ---
Test Reason : Blood Pressure : / mmHG Vent. Rate : 110 BPM Atrial Rate : 110 BPM P-R Int : 142 ms QRS Dur : 114 ms QT Int : 360 ms P-R-T Axes : 051 -20 109 degrees QTc Int : 487 ms Sinus tachycardia Possible Left atrial enlargement ST & T wave abnormality, consider lateral ischemia Abnormal ECG Confirmed by OLIVIA JOYA, TANG ([id number]), sports editor NIMA PRINGLE ([id number]) on 10/20/2019 2:17:29 PM Referred By: UBALDO Confirmed By:ERYN BAKER MD
--- NOTE | 2019-10-16 15:05 | RAD_ITS ---
STUDY: X-RAY CHEST REASON FOR EXAM: Male, 74 years old. Shortness of breath TECHNIQUE: Single AP portable view of the chest. COMPARISON: Comparison is made with prior study dated September 13, 2019. FINDINGS: EKG electrodes are seen. There is evidence of vascular congestion and CHF with bibasilar atelectasis. Blunting of both concerning angles. Normal size heart. Normal mediastinum and morena. Normal visualized pulmonary arteries. Normal visualized aortic arch and descending thoracic aorta. There is a dextroscoliosis of the thoracic spine. Normal visualized ribs, clavicles, and shoulders. There is no demonstrated abnormality of the visualized soft tissue structures of the upper abdomen. RAD/Chest 1 View (Portable) IMPRESSION: Findings in keeping with CHF and blunting of both costophrenic angles. Electronically Signed: Girma Ruiz, at 15:37 EST , Service support ,
--- NOTE | 2019-10-16 15:05 | ED.VIS.GEN ---
History of Present Illness Chief Complaint: Shortness of Breath Informant: Patient Onset: Today Context: Sudden Onset Timing: Continuous Current Severity: Severe Maximum Severity: Severe Narrative: The patient is a 74-year-old male with medical history significant for hypertension, prior nephrectomy, and recent admission for respiratory failure secondary to pneumonia the presents to the emergency department with further acute onset shortness of breath. The patient was discharged at the end of August when he was in hypoxic respiratory failure. He is been on 2 L of oxygen at baseline. He has been following with pulmonology, cardiology, and nephrology. He is not on dialysis. He is not on diuretics. Today, he went to his appointment. He was found to be hypertensive. The patient got acutely dyspneic despite his supplemental oxygen. He was found to be hypoxic and sent over for further evaluation. He states that he was in his normal state of health until today. He denies chest pain, but does admit to rather significant shortness of breath. Prior similar symptoms: Yes Recent Illness/Hospitalization: Yes Past Medical History - Allergies and Home Meds Allergies/Adverse Reactions: Allergies Sulfa (Sulfonamide Antibiotics) Allergy (Verified 10/16/19 15:03) Swelling acetaminophen [From [place]] Adverse Reaction (Verified 10/16/19 15:03) confusion hydrocodone bitartrate [From [place]] Adverse Reaction (Verified 10/16/19 15:03) confusion Primary Care Physician: Carter Coon DO [Primary Care Provider] - Prior records reviewed: Yes Past Medical History: - - Coronary vascular disease, hypertension, chronic kidney disease Surgical History: - Smoking Status: Never smoker - Family History Maternal Family History: Family History (Last Reviewed 09/29/19 @ 14:[address] Chas Hoyos MD) Father Histoplasmosis Mother Cancer Breast cancer Family History: Reports: - - Patient notes maternal family history of cancer including thyroid cancer, breast cancer and eventually lung cancer with heavy tobacco use history. Paternal Family History: Family History (Last Reviewed 09/29/19 @ 14:[address] Chas Hoyos MD) Father Histoplasmosis Mother Cancer Breast cancer Family History: Reports: - - Patient notes a paternal family history of lung disease, unclear specific but notes he had several bouts of pneumonia and breathing issues. Review of Systems General: Denies: Chills, Fever, Sweats Eyes: Denies: Visual changes - bilaterally, Diplopia ENT: Denies: Rhinorrhea, Sore throat Cardiovascular: Reports: Heart racing Respiratory: Reports: Dyspnea, Cough, Sputum, Dyspnea on exertion, Orthopnea Gastrointestinal: Denies: Abdominal pain, Nausea, Vomiting, Diarrhea, Melena, Hematochezia Genitourinary: Denies: Dysuria, Hematuria, Frequency Musculoskeletal: Denies: Back pain, Extremity Pain Skin: Denies: Rash, Wounds Neurological: Denies: Headache, Weakness, Numbness Physical Exam Vital Signs/Narrative: Vital Signs Temp Pulse Resp BP Pulse Ox 10/16/19 15:01 98 F 133 H 30 H 186/110 H 88 10/16/19 14:58 133 H 30 H 186/110 H 88 10/16/19 14:56 98 F 135 H 48 H 76 Inital Vital Signs reviewed: Yes General: Well nourished, Well developed, Acute Distress Head: Normocephalic, Atraumatic Eyes: Perrl, EOMI ENT: Moist mucous membranes, No rhinorrhea Neck: Supple, Nontender Cardiovascular: Regular rate, Regular rhythm, No murmurs Respiratory: Chest nontender, Rales, Diminished, Retractions Abdomen: Soft, Nontender, Nondistended, Normal bowel sounds Back: Nontender, Normal Inspection Extremities: Nontender, No edema Skin: Normal color, No rash Neurological: Alert, Oriented x3, Cranial nerves II-XII grossly intact, Normal Strength, Normal Sensation Psychological: Normal affect, Normal Mood Diagnostic/Tx/Re-eval Chest X-Ray - ED: 1 View, Normal, Mediastinum, Cardiomegaly, CHF, Right Effusion, Left Effusion Abnormal Lab Results 10/16/19 10/16/19 10/16/19 15:02 15:02 15:02 WBC 8.1 RBC 5.27 Hgb 15.6 Hct 50.0 MCV 94.9 H MCH 29.6 MCHC 31.2 L RDW Std Deviation 45.7 H RDW Coeff of Morris 13.1 Plt Count 219 MPV 10.0 Immature Gran % (Auto) 0.400 Neut % (Auto) 68.2 Lymph % (Auto) 21.1 Vernon % (Auto) 5.7 Eos % (Auto) 4.2 Baso % (Auto) 0.4 Absolute Neuts (auto) 5.6 Absolute Lymphs (auto) 1.71 Nucleated RBC % 0 PT 14.1 INR 1.1 APTT 28.8 Specimen Type Sample Site pH Bicarbonate Actual POC Total CO2 Base Excess O2 Saturation O2 % ABG pCO2 ABG pO2 Michi Test Respiration Rate O2 Delivery Device EPAP IPAP Blood Gas Notified Whom Blood Gas Notified Time Sodium 137 Potassium 4.4 Chloride 100 Carbon Dioxide 27.0 Anion Gap 10 BUN 18 Creatinine 1.51 H Estim Creat Clear Calc 32.64 Est GFR (MDRD) Af Amer 58 L Est GFR (MDRD) Non-Af 48 L BUN/Creatinine Ratio 11.9 Glucose 208 H Calcium 9.2 Total Bilirubin 0.70 AST 39 H ALT 46 Alkaline Phosphatase 109 Troponin I < 0.015 Total Protein 8.6 H Albumin 4.3 Globulin 4.3 H Albumin/Globulin Ratio 1.0 10/16/19 15:25 WBC RBC Hgb Hct MCV MCH MCHC RDW Std Deviation RDW Coeff of Morris Plt Count MPV Immature Gran % (Auto) Neut % (Auto) Lymph % (Auto) Vernon % (Auto) Eos % (Auto) Baso % (Auto) Absolute Neuts (auto) Absolute Lymphs (auto) Nucleated RBC % PT INR APTT Specimen Type ART Sample Site R Radial pH 7.34 L Bicarbonate Actual 29.2 H POC Total CO2 31 Base Excess 3 H O2 Saturation 100 H O2 % 100 ABG pCO2 54.5 H ABG pO2 362 H* Michi Test POS Respiration Rate 12 O2 Delivery Device Bi / C PAP EPAP 6 IPAP 14 Blood Gas Notified Whom ED MD Blood Gas Notified Time 1524 Sodium Potassium Chloride Carbon Dioxide Anion Gap BUN Creatinine Estim Creat Clear Calc Est GFR (MDRD) Af Amer Est GFR (MDRD) Non-Af BUN/Creatinine Ratio Glucose Calcium Total Bilirubin AST ALT Alkaline Phosphatase Troponin I Total Protein Albumin Globulin Albumin/Globulin Ratio - Rhythm Strip Rhythm Strip: Sinus Tach Rate: 130 Ectopy: None - EKG Initial EKG Interpretation: No Acute Injury Pattern, Sinus Tachycardia Prior: Unchanged - Medical Decision Making The patient presents in acute respiratory failure. He was rather significantly hypoxic with oxygen saturations in the mid 70s despite 6 L of nasal cannula. He has diffuse crackles throughout his entire lung mann. My suspicion is that he was likely in acute pulmonary edema secondary to his hypertension. The patient was placed immediately on BiPAP. The patient had a blood gas obtained. He did have some mild hypercapnia, but no significant changes in his pH. X-ray does demonstrate evidence of acute volume overload with effusions and CHF. His EKG was sinus without acute ischemic change. The patient was given sublingual nitro and placed on a nitro drip. I did target blood pressures of about 1 20-1 30. The patient was feeling markedly improved. With his acute respiratory failure requiring noninvasive ventilation, I do feel that he is going to require the ICU. I did discuss this with Dr. Olmos and the hospitalist. 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 Hoyos. The patient is comfortable with this plan of care. Impression 1. Acute hypoxic respiratory failure 2. Acute decompensated congestive heart failure 3. Hypertensive emergency - Critical Care Time Critical care time (excluding procedures): 30-74 minutes, Discussing w/Patient &/or Family/[place]am [place], Discussing w/Consultants, Arranging Admission or Transfer, Performing Direct Patient Care at Bedside ED Disposition - Plan for ED Patient: Referrals: Carter Coon DO [Primary Care Provider] -
[2019-10-16] MEDS: Nitroglycerin SL (ED/IMG/CATH) 0.4 MG TABLET SUBLINGUAL (15:17)
[2019-10-16 15:18] LABS: Absolute Lymphocyte Count 1.71 X10^3/uL (0.83-4.51); Absolute Neutrophil Count 5.6 X10^3/uL (2.0-7.7); Basophil# 0.03 X10^3/uL; Basophil% 0.4 % (0-1); Eosinophil# 0.34 X10^3/uL; Eosinophils% 4.2 % (0-5); Hemoglobin 15.6 g/dL (13.0-16.5); Lymphocyte # 1.71 X10^3/ul (4.0); Lymphocyte % 21.1 % (19-41); Mean Corp Hgb Conc 31.2 g/dL (32-36); Mean Corpuscular Hgb 29.6 pg (27.0-32.0); Mean Corpuscular Volume 94.9 fL (80-94); Monocyte# 0.46 X10^3/uL; Monocyte% 5.7 % (0-10); NRBC Flagged by Analyzer 0 % (0-5); Neutrophil # 5.55 X10^3/uL (2.7-7.7); Neutrophil % 68.2 % (47-70); Platelet Count 219 K/mm3 (150-450); RBC Distribution Width CV 13.1 % (11.6-14.6); RBC Distribution Width SD 45.7 fl (35.1-43.9); Red Blood Count 5.27 M/mm3 (4.6-6.2); White Blood Count 8.1 K/mm3 (4.4-11.0)
[2019-10-16] MEDS: Nitroglycerin Infusion 250 ML 6 MG CONT INF (15:21)
[2019-10-16 15:23] LABS: International Normalized Ratio 1.1; Prothrombin Time (Protime)PT. 14.1 SECONDS (11.7-14.9)
[2019-10-16 15:24] LABS: Partial Thromboplast Time 28.8 Seconds (24.1-36.2)
[2019-10-16 15:31] LABS: Allen Test POS; Base Excess 3 mmol/L (-2 to +2); Bicarbonate 29.2 mmol/L (22-26); Blood Gas Specimen Type ART; EPAP 6; FI02 100; IPAP 14; PO2 362 mmHG (75-100); RR 12; SITE R Radial; SO2 100 % (95-99); Time Given 1524; Total Carbon Dioxide 31 mmol/L; pCO2 54.5 mmHg (35-45); pH 7.34 (7.35-7.45)
[2019-10-16 15:35] LABS: AST(SGOT) 39 U/L (15-37); Alanine Aminotransfer ALT/SGPT 46 U/L (16-61); Albumin, Serum 4.3 g/dL (3.2-5.0); Alkaline Phosphatase 109 U/L (45-117); Anion Gap 10 (5-15); BUN 18 mg/dL (7-18); BUN/Creat Ratio 11.9 RATIO (10-20); Calcium,Total 9.2 mg/dL (8.5-10.1); Chloride 100 mmol/L (98-107); Creatinine, Serum 1.51 mg/dL (0.70-1.30); EST Glomerular Filtration Rate 48 mL/min (>60); Est Glom Filt Rate - Afr Amer 58 mL/min (>60); Estimated Creatinine Clearance 32.64 ml/min; Globulin 4.3 g/dL (2.2-4.2); Glucose 208 mg/dL (74-106); Potassium 4.4 mmol/L (3.5-5.1); Protein, Total 8.6 g/dL (6.4-8.2); Sodium Level 137 mmol/L (136-145)
[2019-10-16 15:51] LABS: BNP,B-Type NATRIURETIC PEPTIDE 1021.5 pg/mL (0-100)
[2019-10-16] MEDS: Furosemide 40 MG/4 ML Vial IV (15:56)
--- NOTE | 2019-10-16 18:34 | PCM.HP.STD ---
History of Present Illness Date of Admission: 10/16/19 Chief Complaint: Shortness of breath The patient is a 74 year old [facility] as below who presents with shortness of breath. He is normally on 2 L of oxygen at home and he follows with pulmonology, cardiology however he went to his doctor's appointment today and was found to be significantly hypertensive and short of breath. He said that he had been having an argument with his doctor because he said that that it MARVIN hose he was wearing was making him more short of breath and so he made sure to wear them and was not taking his blood pressure medications to prove a point. He was tested at his doctor's office and was found to be hypoxic into the mid 80s and therefore was sent to the ER for further evaluation. He has a significant history of systolic heart failure with an EF of 20 to 25%, however he is not on any diuretics because he has only 1 functioning kidney. During my evaluation he had already been placed on BiPAP and states that he was feeling much better with BiPAP. He was also given a dose of IV Lasix in the ER, his ABG was unremarkable with a PO2 of 362, he did have an elevated lactic acid though this is likely related to his hypoxia, he has no signs of infection BNP was also elevated to over 1000, which is significant since his last BNP in September 14, 2019 was 350. Past Medical History Past Medical History (Chronic Problems): Chronic Problems (Last Reviewed 09/29/19 @ 14:[address] Chas Hoyos MD) History of CHF (congestive heart failure) (Chronic) Chronic sinus infection (Chronic) Diabetes mellitus, type II (Chronic) PVD (peripheral vascular disease) (Chronic) BPH (benign prostatic hyperplasia) (Chronic) History of nephrectomy, unilateral (Chronic) Medical History: Medical History (Last Reviewed 09/29/19 @ 14:[address] Chas Hoyos MD) History of CHF (congestive heart failure) (Chronic) Z86.79 Chronic sinus infection (Chronic) J32.9 Sepsis (Acute) A41.9 Acute respiratory failure with hypoxia (Acute) J96.01 Pneumonia (Acute) J18.9 Diabetes mellitus, type II (Chronic) E11.9 BPH (benign prostatic hyperplasia) (Chronic) N40.0 JOSE (acute kidney injury) (Acute) N17.9 Community acquired pneumonia (Acute) J18.9 Allergies Sulfa (Sulfonamide Antibiotics) Allergy (Verified 10/16/19 15:03) Swelling acetaminophen [From [place]] Adverse Reaction (Verified 10/16/19 15:03) confusion hydrocodone bitartrate [From [place]] Adverse Reaction (Verified 10/16/19 15:03) confusion Home Medications: Ambulatory Orders Medication Instructions Recorded Tamsulosin HCl [Flomax] 0.4 mg PO QHS 04/21/15 Multivit-Min/FA/Lycopen/Lutein 1 ea PO DAILY 05/12/15 [Centrum Silver Tablet] Finasteride 1 tab PO DAILY 09/13/19 metFORMIN HCl [Glucophage] 500 mg PO DAILY 09/13/19 Aspirin [Aspirin, Baby] 81 mg PO DAILY@0800 10/16/19 Carvedilol 6.25 mg PO BID@0900,2100 10/16/19 Surgical History: Surgical History (Last Reviewed 09/29/19 @ 14:[address] Chas Hoyos MD) History of nephrectomy, right (Resolved) Z90.5 History of left heart catheterization (Acute) Onset Date: 09/16/19 Z98.890 History of corrected cleft lip and palate Z87.730 History of spinal fusion Z98.1 History of tonsillectomy Z90.89 Surgical History: - Psychiatric History: No pertinent psych hx Smoking Status: Never smoker Tobacco Use: Secondhand Alcohol: None Drugs: None - *Family History Maternal Family History: Family History (Last Reviewed 09/29/19 @ 14:[address] Chas Hoyos MD) Father Histoplasmosis Mother Cancer Breast cancer History Items: - - Patient notes maternal family history of cancer including thyroid cancer, breast cancer and eventually lung cancer with heavy tobacco use history. Paternal Family History: Family History (Last Reviewed 09/29/19 @ 14:[address] Chas Hoyos MD) Father Histoplasmosis Mother Cancer Breast cancer History Items: - - Patient notes a paternal family history of lung disease, unclear specific but notes he had several bouts of pneumonia and breathing issues. Review of Systems Constitutional: Denies: Chills, Fever, Weight Change HEENT: Denies: Head Aches, Sinus Congestion, Sinus Drainage Cardiovascular: Denies: Chest Pain, Palpitations Respiratory: Reports: Shortness of Breath. Denies: Cough, Shortness of breath at rest, Sputum production Gastrointestinal: Denies: Abdominal Pain, Nausea, Vomiting Genitourinary: Denies: Dysuria Musculoskeletal: Denies: Joint Pain, Joint Tenderness Skin: Denies: Rash, Wounds Neurological: Denies: Numbness, Tingling, Focal weakness Psychiatric: Denies: Anxiety, Depression Hematologic/ Lymphatic: Denies: Easy Bruising, Easy Bleeding VTE Information - Inpt Only VTE Present on Admission: No - Physical Exam Vitals/I&O's: Vital Signs Temp Pulse Resp BP Pulse Ox 97.5 F L 83 18 141/77 H 97 10/16/19 17:53 10/16/19 17:53 10/16/19 17:53 10/16/19 18:25 10/16/19 17:53 Oxygen Flow Rate (L/min) 15 Oxygen Delivery Method Bi-pap Weight: 151 lb 7.321 oz Body Mass Index (BMI) 27.8 Finger Stick Blood Glucose 227 Intake and Output for Last 24 Hours 10/14/19 10/15/19 10/16/19 23:59 23:59 23:59 Intake Total 18.4 / 18.4 Balance 18.4 / 18.4 General: Alert, Oriented x3, Cooperative, No apparent distress HEENT: Atraumatic, PERRLA, EOMI, Normocephalic Oral: Moist Mucosa Neck: Supple, No JVD Lungs: Clear to auscultation, Normal air movement, No rhonchi, No wheeze, No rales Cardiovascular: Regular rate, Regular Rhythm, Normal S1, Normal S2, No murmurs Abdomen: Soft, Non Tender, Non-Distended, No Hepato-splenomegaly Extremities: Capillary Refill Less than 3 Seconds, Edema - 1+ pitting Skin: No rashes, No breakdown Neurological: Neuro grossly intact, Sensory exam intact to light touch and pain Psych/Mental Status: Normal Affect, Appropriate Laboratory Results 10/16/19 15:02: WBC 8.1, RBC 5.27, Hgb 15.6, Hct 50.0, MCV 94.9 H, MCH 29.6, MCHC 31.2 L, RDW Std Deviation 45.7 H, RDW Coeff of Morris 13.1, Plt Count 219, MPV 10.0, Immature Gran % (Auto) 0.400, Neut % (Auto) 68.2, Lymph % (Auto) 21.1, Amelia % (Auto) 5.7, Eos % (Auto) 4.2, Baso % (Auto) 0.4, Absolute Neuts (auto) 5.6, Absolute Lymphs (auto) 1.71, Nucleated RBC % 0 10/16/19 15:02: PT 14.1, INR 1.1, APTT 28.8 10/16/19 15:02: Sodium 137, Potassium 4.4, Chloride 100, Carbon Dioxide 27.0, Anion Gap 10, BUN 18, Creatinine 1.51 H, Estim Creat Clear Calc 32.64, Est GFR (MDRD) Af Amer 58 L, Est GFR (MDRD) Non-Af 48 L, BUN/Creatinine Ratio 11.9, Glucose 208 H, Calcium 9.2, Total Bilirubin 0.70, AST 39 H, ALT 46, Alkaline Phosphatase 109, Troponin I < 0.015, Total Protein 8.6 H, Albumin 4.3, Globulin 4.3 H, Albumin/Globulin Ratio 1.0 10/16/19 15:02: Lactic Acid 5.0 H* 10/16/19 15:02: B-Natriuretic Peptide 1021.5 H 10/16/19 15:25: Specimen Type ART, Sample Site R Radial, pH 7.34 L, Bicarbonate Actual 29.2 H, POC Total CO2 31, Base Excess 3 H, O2 Saturation 100 H, O2 % 100, ABG pCO2 54.5 H, ABG pO2 362 H*, Micih Test POS, Respiration Rate 12, O2 Delivery Device Bi / C PAP, EPAP 6, IPAP 14, Blood Gas Notified Whom ED MD, Blood Gas Notified Time 1524 Current Medications Furosemide (Lasix) 40 mg IV DAILY [facility] Glucagon () 1 mg IM .X1 PRN PRN Reason: Hypoglycemia Heparin Sodium (Porcine) (Heparin Na) 5,000 unit SC Q12 [facility] Nitroglycerin/Dextrose () 250 mls @ 6 mls/hr CONT INF .[id number] [facility]; Protocol Last Titration: 10/16/19 18:25 Dose: 10 mcg/min, 6 mls/hr Documented by: Dextrose (Dextrose 10%-Water) 250 mls @ 999 mls/hr IV .Q16M PRN; Protocol PRN Reason: HYPOGLYCEMIA Insulin Human Lispro (Humalog Kwikpen (Bkc)) 0 unit SC ACHS [place]; Protocol Sodium Chloride () 10 - 40 ml IV UD PRN PRN Reason: SALINE FLUSH Assessment/Plan All Active Problems (Last Reviewed 09/29/19 @ 14:[address] Chas Hoyos MD) History of nephrectomy, right (Resolved) History of left heart catheterization (Acute 09/16/19) Sepsis (Acute) Acute respiratory failure with hypoxia (Acute) Pneumonia (Acute) JOSE (acute kidney injury) (Acute) Community acquired pneumonia (Acute) 1. Acute hypoxic respiratory failure secondary to flash pulmonary edema/acute on chronic systolic CHF/HTN/HLD -Feeling much better now that he has been on BiPAP -We will continue with IV Lasix, but we will go slow given his nephrectomy history -Continue with his Coreg as well as his aspirin -He is also currently in heart failure given the elevation and his BNP 2. DM 2/CKD 3 -We will hold his metformin and place him on sliding scale insulin -Accu-Cheks AC at bedtime -Baseline creatinine is around 1.3 3. BPH -Stable -Continue Flomax DVT: Heparin Code Visit Inpatient E&M: 92308 Init Hosp L3
[2019-10-16 19:10] LABS: Reflex Lactate? Y
[2019-10-16 21:32] LABS: Lactic Acid 1.4 mmol/L (0.4-1.9)
[2019-10-16] MEDS: Heparin Injection (Vial) 5,000 UNIT/ML VIAL 5000 UNIT SC (21:43)
[2019-10-16 21:51] LABS: Bedside Glucose 113 mg/dL (70-110)
[2019-10-17] VITALS (38 sets, daily range): BP systolic 95–157; BP diastolic 43–86; PULSE 49–86; RESP 12–21; TEMP 36.2–36.9; O2SAT 94–100
[2019-10-17 05:26] LABS: Absolute Lymphocyte Count 1.19 X10^3/uL (0.83-4.51); Absolute Neutrophil Count 5.3 X10^3/uL (2.0-7.7); Basophil# 0.02 X10^3/uL; Basophil% 0.3 % (0-1); Eosinophils% 2.6 % (0-5); Hematocrit 37.2 % (40-54); Lymphocyte # 1.19 X10^3/ul (4.0); Lymphocyte % 15.7 % (19-41); Mean Corp Hgb Conc 32.3 g/dL (32-36); Mean Platelet Vol. 9.5 fl (6.2-12.0); Monocyte# 0.85 X10^3/uL; Monocyte% 11.2 % (0-10); NRBC Flagged by Analyzer 0 % (0-5); Neutrophil # 5.32 X10^3/uL (2.7-7.7); Neutrophil % 70.1 % (47-70); Platelet Count 165 K/mm3 (150-450); RBC Distribution Width CV 13.1 % (11.6-14.6); RBC Distribution Width SD 44.9 fl (35.1-43.9); White Blood Count 7.6 K/mm3 (4.4-11.0)
[2019-10-17 05:43] LABS: Anion Gap 6 (5-15); BUN 18 mg/dL (7-18); BUN/Creat Ratio 15.4 RATIO (10-20); Calcium,Total 8.5 mg/dL (8.5-10.1); Chloride 104 mmol/L (98-107); Creatinine, Serum 1.17 mg/dL (0.70-1.30); EST Glomerular Filtration Rate 65 mL/min (>60); Est Glom Filt Rate - Afr Amer 78 mL/min (>60); Estimated Creatinine Clearance 40.35 ml/min; Glucose 107 mg/dL (74-106); Potassium 3.7 mmol/L (3.5-5.1); Sodium Level 142 mmol/L (136-145)
--- NOTE | 2019-10-17 07:12 | PN_ITS ---
Patient Problems: Active and Suspected Problems (Last Reviewed 09/29/19 @ 14:[address] Chas Hoyos MD) Hypertensive emergency (Acute) Reason for Visit: Follow-up on respiratory failure/pulmonary edema Subjective: Patient was seen and examined. He feels much improved. Currently on 2 L of oxygen and saturating well. He denies any chest pain, dizziness, progressive SOB. He has diuresed more than 1.5 L since admission. Vitals/I&O's: Vital Signs Temp Pulse Resp BP Pulse Ox 97.5 F L 56 L 15 131/50 H 99 10/17/19 04:00 10/17/19 06:00 10/17/19 06:00 10/17/19 07:00 10/17/19 06:00 Oxygen Flow Rate (L/min) 15 Oxygen Delivery Method Bi-pap Weight: 69.9 kg Body Mass Index (BMI) 27.8 Finger Stick Blood Glucose 227 Intake and Output for Last 24 Hours 10/15/19 10/16/19 10/17/19 23:59 23:59 23:59 Intake Total 195.9 / 201.9 36.0 / 36.0 Output Total 1050 / 1050 450 / 450 Balance -854.1 / -848.1 -414.0 / -414.0 General: Alert, Oriented x3, Cooperative, No apparent distress HEENT: Atraumatic, PERRLA, EOMI, Normocephalic Oral: Moist Mucosa Neck: Supple Lungs: Clear to auscultation, Normal air movement Cardiovascular: Regular rate, Regular Rhythm, Normal S1, Normal S2, No murmurs Abdomen: Bowel Sounds Present, Soft, Non Tender, Non-Distended, No Hepato- splenomegaly Extremities: Edema - Trace bilateral edema Skin: No rashes, No breakdown Musculoskeletal: No Tenderness to Palpation of Joints or Extremities Lymphatic: No Cervical, Supraclavicular, or Inguinal Adenopathy Neurological: Cranial nerves II-XII grossly intact, Neuro grossly intact Psych/Mental Status: Normal Affect, Appropriate Laboratory Results 10/16/19 15:02: WBC 8.1, RBC 5.27, Hgb 15.6, Hct 50.0, MCV 94.9 H, MCH 29.6, MCHC 31.2 L, RDW Std Deviation 45.7 H, RDW Coeff of Morris 13.1, Plt Count 219, MPV 10.0, Immature Gran % (Auto) 0.400, Neut % (Auto) 68.2, Lymph % (Auto) 21.1, Mchenry % (Auto) 5.7, Eos % (Auto) 4.2, Baso % (Auto) 0.4, Absolute Neuts (auto) 5.6, Absolute Lymphs (auto) 1.71, Nucleated RBC % 0 10/16/19 15:02: PT 14.1, INR 1.1, APTT 28.8 10/16/19 15:02: Sodium 137, Potassium 4.4, Chloride 100, Carbon Dioxide 27.0, Anion Gap 10, BUN 18, Creatinine 1.51 H, Estim Creat Clear Calc 32.64, Est GFR (MDRD) Af Amer 58 L, Est GFR (MDRD) Non-Af 48 L, BUN/Creatinine Ratio 11.9, Glucose 208 H, Calcium 9.2, Total Bilirubin 0.70, AST 39 H, ALT 46, Alkaline Phosphatase 109, Troponin I < 0.015, Total Protein 8.6 H, Albumin 4.3, Globulin 4.3 H, Albumin/Globulin Ratio 1.0 10/16/19 15:02: Lactic Acid 5.0 H* 10/16/19 15:02: B-Natriuretic Peptide 1021.5 H 10/16/19 15:25: Specimen Type ART, Sample Site R Radial, pH 7.34 L, Bicarbonate Actual 29.2 H, POC Total CO2 31, Base Excess 3 H, O2 Saturation 100 H, O2 % 100, ABG pCO2 54.5 H, ABG pO2 362 H*, Michi Test POS, Respiration Rate 12, O2 Delivery Device Bi / C PAP, EPAP 6, IPAP 14, Blood Gas Notified Whom ED , Blood Gas Notified Time 1524 10/16/19 21:00: Lactic Acid 1.4 10/16/19 21:39: POC Glucose 113 H 10/17/19 05:15: Sodium 142, Potassium 3.7, Chloride 104, Carbon Dioxide 32.0, Anion Gap 6, BUN 18, Creatinine 1.17, Estim Creat Clear Calc 40.35, Est GFR (MDRD) Af Amer 78, Est GFR (MDRD) Non-Af 65, BUN/Creatinine Ratio 15.4, Glucose 107 H, Calcium 8.5 10/17/19 05:15: WBC 7.6, RBC 4.00 L, Hgb 12.0 L, Hct 37.2 L, MCV 93.0, MCH 30.0, MCHC 32.3, RDW Std Deviation 44.9 H, RDW Coeff of Morris 13.1, Plt Count 165, MPV 9.5, Immature Gran % (Auto) 0.100, Neut % (Auto) 70.1 H, Lymph % (Auto) 15.7 L, Mchenry % (Auto) 11.2 H, Eos % (Auto) 2.6, Baso % (Auto) 0.3, Absolute Neuts (auto) 5.3, Absolute Lymphs (auto) 1.19, Nucleated RBC % 0 Current Medications Furosemide (Lasix) 40 mg IV DAILY [facility] Glucagon () 1 mg IM .X1 PRN PRN Reason: Hypoglycemia Heparin Sodium (Porcine) (Heparin Na) 5,000 unit SC Q12 [facility] Last Admin: 10/16/19 21:43 Dose: 5,000 unit Documented by: Nitroglycerin/Dextrose () 250 mls @ 6 mls/hr CONT INF .[id number] [facility]; Protocol Last Titration: 10/17/19 07:00 Dose: 10 mcg/min, 6 mls/hr Documented by: Dextrose (Dextrose 10%-Water) 250 mls @ 999 mls/hr IV .Q16M PRN; Protocol PRN Reason: HYPOGLYCEMIA Insulin Human Lispro (Humalog Kwikpen (Bkc)) 0 unit SC ACHS [facility]; Protocol Last Admin: 10/16/19 21:41 Dose: Not Given Documented by: Sodium Chloride () 10 - 40 ml IV UD PRN PRN Reason: SALINE FLUSH STROKE Vital Signs/Narrative: Vital Signs Temp Pulse Resp BP BP Pulse Ox 10/17/19 07:00 131/50 H 10/17/19 06:00 56 L 15 115/54 L 115/54 L 99 10/17/19 05:06 56 L 17 99 10/17/19 05:00 49 L 15 115/50 L 115/50 L 99 10/17/19 04:00 97.5 F L 53 L 15 104/46 L 104/46 L 98 10/17/19 03:45 116/46 L 10/17/19 03:30 119/55 L 02/21/20 03:15 132/62 H Medical Necessity - Tobacco Use Smoking Status: Never smoker Tobacco Use: Secondhand Assessment/Plan All Active Problems (Last Reviewed 09/29/19 @ 14:[address] Chas Hoyos MD) Hypertensive emergency (Acute) History of nephrectomy, right (Resolved) History of left heart catheterization (Acute 09/16/19) Sepsis (Acute) Acute respiratory failure with hypoxia (Acute) Pneumonia (Acute) JOSE (acute kidney injury) (Acute) Community acquired pneumonia (Acute) 74-year-old male with past medical history of chronic systolic CHF, type II DM, status post nephrectomy who comes in with progressive shortness of breath and is being managed in the ICU. 1. Acute hypoxic respiratory failure #2 acute on chronic systolic CHF, improved, on home 2 L of oxygen We will continue on Lasix IV 40mg daily, I's and O's, CHF protocol, Continue on Coreg, aspirin, wean off nitro drip 2. Acute on chronic systolic CHF, EF 20-35%, continue as in #1 2. Hypertension, controlled, on continue with home regimen 3. Type II DM, on metformin, would hold metformin, continue with blood glucose checks with insulin sliding scale 4. JOSE on CKD stage III, history of nephrectomy, but improved from 1.51 to 1.17 Baseline Cr is 1.2, will continue to monitor on Lasix 5. DVT prophylaxis with heparin subcu Code Visit Inpatient E&M: 17698 Subs Hosp L2
--- NOTE | 2019-10-17 07:22 | CON.PCM_ITS ---
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 Diabetes mellitus complication status: with other specified complication Qualified Code(s): E11.69 - Type 2 diabetes mellitus with other specified complication (5) PVD (peripheral vascular disease) Status: Chronic (6) BPH (benign prostatic hyperplasia) Status: Chronic Qualifiers: Lower urinary tract symptom presence: unspecified whether lower urinary tract symptoms present Qualified Code(s): N40.0 - Benign prostatic hyperplasia without lower urinary tract symptoms (7) History of nephrectomy, unilateral Status: Chronic (8) JOSE (acute kidney injury) Status: Acute Reason for Consult Date of Consultation: 10/17/19 Reason for Consultation: Respiratory failure History of Present Illness: The patient is a 74 year old M, with past medical history listed below, who presented to [facility] on 10/16/2019 secondary to acute onset of shortness of breath. Patient was recently discharged at the end of August secondary to hypoxic respiratory failure. At that time, patient was on 2 L nasal cannula. Patient reportedly is not on diuretics at baseline, but does have renal dysfunction in the past. Patient went to an appointment was found to be significantly hypertensive. Patient denied any chest pain at that time. In the ER, patient was noted to be significantly tachycardic at 133 bpm and hypertensive at 186/110 with a saturation of 88% on 15 L. Patient was initiated on BiPAP with significant improvement. X-ray did show cephalization and effusions. Patient was given sublingual nitro and a nitro drip and admitted to the intensive care unit. Since being in the intensive care unit, patient has had little time off of BiPAP therapy. Patient does report he has had a significant improvement in symptomatology with the mask. Patient denies any chest pain, abdominal pain, nausea or vomiting. No fever, chills or rashes were reported prior to presenting to the ER. Patient reportedly stated that his MARVIN hose were making him more short of breath and he did not take his blood pressure medication to prove a point. Patient does have a known history of systolic dysfunction with a last EF of 20 to 25%. Patient only has 1 kidney. Review of systems otherwise negative from a constitutional, HEENT, respiratory, cardiovascular, GI, genitourinary, musculoskeletal, skin, neurologic, psychiatric and hematologic system unless stated above. Past Medical History Past Medical History (Chronic Problems): Chronic Problems (Last Reviewed 09/29/19 @ 14:[address] Chas Hoyos MD) History of CHF (congestive heart failure) (Chronic) Chronic sinus infection (Chronic) Diabetes mellitus, type II (Chronic) PVD (peripheral vascular disease) (Chronic) BPH (benign prostatic hyperplasia) (Chronic) History of nephrectomy, unilateral (Chronic) Medical History: Medical History (Last Reviewed 09/29/19 @ 14:[address] Chas Hoyos MD) History of CHF (congestive heart failure) (Chronic) Z86.79 Chronic sinus infection (Chronic) J32.9 Sepsis (Acute) A41.9 Acute respiratory failure with hypoxia (Acute) J96.01 Pneumonia (Acute) J18.9 Diabetes mellitus, type II (Chronic) E11.9 BPH (benign prostatic hyperplasia) (Chronic) N40.0 JOSE (acute kidney injury) (Acute) N17.9 Community acquired pneumonia (Acute) J18.9 Allergies Sulfa (Sulfonamide Antibiotics) Allergy (Verified 10/16/19 15:03) Swelling acetaminophen [From [place]] Adverse Reaction (Verified 10/16/19 15:03) confusion hydrocodone bitartrate [From [place]] Adverse Reaction (Verified 10/16/19 15:03) confusion Home Medications: Ambulatory Orders Medication Instructions Recorded Tamsulosin HCl [Flomax] 0.4 mg PO QHS 04/21/15 Multivit-Min/FA/Lycopen/Lutein 1 ea PO DAILY 05/12/15 [Centrum Silver Tablet] Finasteride 1 tab PO DAILY 09/13/19 metFORMIN HCl [Glucophage] 500 mg PO DAILY 09/13/19 Aspirin [Aspirin, Baby] 81 mg PO DAILY@0800 10/16/19 Carvedilol 6.25 mg PO BID@0900,2100 10/16/19 Surgical History: Surgical History (Last Reviewed 09/29/19 @ 14:[address] Chas Hoyos MD) History of nephrectomy, right (Resolved) Z90.5 History of left heart catheterization (Acute) Onset Date: 09/16/19 Z98.890 History of corrected cleft lip and palate Z87.730 History of spinal fusion Z98.1 History of tonsillectomy Z90.89 Surgical History: - Psychiatric History: No pertinent psych hx Smoking Status: Never smoker Tobacco Use: Secondhand Alcohol: None Drugs: None - *Family History Maternal Family History: Family History (Last Reviewed 09/29/19 @ 14:[address] Chas Hoyos MD) Father Histoplasmosis Mother Cancer Breast cancer History Items: - - Patient notes maternal family history of cancer including thyroid cancer, breast cancer and eventually lung cancer with heavy tobacco use history. Paternal Family History: Family History (Last Reviewed 09/29/19 @ 14:[address] Chas Hoyos MD) Father Histoplasmosis Mother Cancer Breast cancer History Items: - - Patient notes a paternal family history of lung disease, unclear specific but notes he had several bouts of pneumonia and breathing issues. Review of Systems Comment: See HPI Patient Problems: Active and Suspected Problems (Last Reviewed 09/29/19 @ 14:[address] Chas Hoyos MD) Hypertensive emergency (Acute) Objective: All imaging was personally reviewed. Agree with formal interpretation. Echocardiogram as described in HPI. Patient has not had a pulmonary function or walking oximetry and was only recently seen as a post hospital follow-up. Patient has been seen by Dr. Auguste in the past for nephrology - Physical Exam Vitals/I&O's: Vital Signs Temp Pulse Resp BP Pulse Ox 36.4 C L 56 L 15 131/50 H 94 10/17/19 04:00 10/17/19 06:00 10/17/19 06:00 10/17/19 07:00 10/17/19 07:05 Oxygen Flow Rate (L/min) 2 Oxygen Delivery Method Nasal Cannula Weight: 69.9 kg Body Mass Index (BMI) 27.8 Finger Stick Blood Glucose 227 Intake and Output for Last 24 Hours 10/15/19 10/16/19 10/17/19 23:59 23:59 23:59 Intake Total 195.9 / 201.9 36.0 / 36.0 Output Total 1050 / 1050 450 / 450 Balance -854.1 / -848.1 -414.0 / -414.0 General: Alert, Oriented x3, Cooperative, - - Facial asymmetry noted. Mild conversational dyspnea with BiPAP in place. HEENT: PERRLA, EOMI, Normocephalic, - - No scleral icterus or injection noted Oral: No Gingival or Mucosal Lesions/ Ulcerations, Dry Mucosa Neck: Supple, No Nodes, Trachea Midline, JVD, Right Lungs: No rhonchi, No wheeze, Diminished, Rales, - - Symmetric expansion. Cardiovascular: Regular rate, Regular Rhythm, Normal S1, Normal S2, No murmurs, No rub noted, No Gallop Abdomen: Bowel Sounds Present, Soft, Non Tender, Non-Distended Extremities: No clubbing, No cyanosis, Capillary Refill Less than 3 Seconds, Edema - Left lower extremity greater than right lower extremity Skin: No rashes, No breakdown Musculoskeletal: No Tenderness to Palpation of Joints or Extremities Lymphatic: No Cervical, Supraclavicular, or Inguinal Adenopathy Neurological: Cranial nerves II-XII grossly intact, Neuro grossly intact, Motor Exam 5/5 strength throughout Psych/Mental Status: Alert and oriented to time, place, person, mood and affect Laboratory Results 10/16/19 15:02: WBC 8.1, RBC 5.27, Hgb 15.6, Hct 50.0, MCV 94.9 H, MCH 29.6, MCHC 31.2 L, RDW Std Deviation 45.7 H, RDW Coeff of Morris 13.1, Plt Count 219, MPV 10.0, Immature Gran % (Auto) 0.400, Neut % (Auto) 68.2, Lymph % (Auto) 21.1, Storey % (Auto) 5.7, Eos % (Auto) 4.2, Baso % (Auto) 0.4, Absolute Neuts (auto) 5.6, Absolute Lymphs (auto) 1.71, Nucleated RBC % 0 10/16/19 15:02: PT 14.1, INR 1.1, APTT 28.8 10/16/19 15:02: Sodium 137, Potassium 4.4, Chloride 100, Carbon Dioxide 27.0, Anion Gap 10, BUN 18, Creatinine 1.51 H, Estim Creat Clear Calc 32.64, Est GFR (MDRD) Af Amer 58 L, Est GFR (MDRD) Non-Af 48 L, BUN/Creatinine Ratio 11.9, Glucose 208 H, Calcium 9.2, Total Bilirubin 0.70, AST 39 H, ALT 46, Alkaline Phosphatase 109, Troponin I < 0.015, Total Protein 8.6 H, Albumin 4.3, Globulin 4.3 H, Albumin/Globulin Ratio 1.0 10/16/19 15:02: Lactic Acid 5.0 H* 10/16/19 15:02: B-Natriuretic Peptide 1021.5 H 10/16/19 15:25: Specimen Type ART, Sample Site R Radial, pH 7.34 L, Bicarbonate Actual 29.2 H, POC Total CO2 31, Base Excess 3 H, O2 Saturation 100 H, O2 % 100, ABG pCO2 54.5 H, ABG pO2 362 H*, Michi Test POS, Respiration Rate 12, O2 Delivery Device Bi / C PAP, EPAP 6, IPAP 14, Blood Gas Notified Whom ED , Blood Gas Notified Time 1524 10/16/19 21:00: Lactic Acid 1.4 10/16/19 21:39: POC Glucose 113 H 10/17/19 05:15: Sodium 142, Potassium 3.7, Chloride 104, Carbon Dioxide 32.0, Anion Gap 6, BUN 18, Creatinine 1.17, Estim Creat Clear Calc 40.35, Est GFR (MDRD) Af Amer 78, Est GFR (MDRD) Non-Af 65, BUN/Creatinine Ratio 15.4, Glucose 107 H, Calcium 8.5 10/17/19 05:15: WBC 7.6, RBC 4.00 L, Hgb 12.0 L, Hct 37.2 L, MCV 93.0, MCH 30.0, MCHC 32.3, RDW Std Deviation 44.9 H, RDW Coeff of Morris 13.1, Plt Count 165, MPV 9.5, Immature Gran % (Auto) 0.100, Neut % (Auto) 70.1 H, Lymph % (Auto) 15.7 L, Storey % (Auto) 11.2 H, Eos % (Auto) 2.6, Baso % (Auto) 0.3, Absolute Neuts (auto) 5.3, Absolute Lymphs (auto) 1.19, Nucleated RBC % 0 Current Medications Furosemide (Lasix) 40 mg IV DAILY [place] Glucagon () 1 mg IM .X1 PRN PRN Reason: Hypoglycemia Heparin Sodium (Porcine) (Heparin Na) 5,000 unit SC Q12 [place] Last Admin: 10/16/19 21:43 Dose: 5,000 unit Documented by: Nitroglycerin/Dextrose () 250 mls @ 6 mls/hr CONT INF .[id number] [facility]; Protocol Last Titration: 10/17/19 07:00 Dose: 10 mcg/min, 6 mls/hr Documented by: Dextrose (Dextrose 10%-Water) 250 mls @ 999 mls/hr IV .Q16M PRN; Protocol PRN Reason: HYPOGLYCEMIA Insulin Human Lispro (Humalog Kwikpen (Bkc)) 0 unit SC ACHS [facility]; Protocol Last Admin: 10/16/19 21:41 Dose: Not Given Documented by: Sodium Chloride () 10 - 40 ml IV UD PRN PRN Reason: SALINE FLUSH Clinical Impression(s) from Imaging Studies Chest X-Ray 10/16/19 15:05 IMPRESSION: Findings in keeping with CHF and blunting of both costophrenic angles. Electronically Signed: Girma Joseph, at 15:37 EST , Service support , Assessment/Plan Active and Suspected Problems (Last Reviewed 09/29/19 @ 14:[address] Cahs Hoyos MD) Hypertensive emergency (Acute) RECOMMENDATIONS: 1. Reinitiate carvedilol 2. Gentle diuresis given baseline renal dysfunction 3. BiPAP breaks as tolerated 4. Attempt discontinuation of nitro drip 5. Monitor in intensive care unit IMPRESSIONS: 1. Acute hypoxic respiratory failure secondary to flash pulmonary edema secondary to hypertensive emergency secondary to rebound hypertension Patient reportedly had come off of his beta-guillermo to prove a point. Patient appears to have gone into flash pulmonary edema secondary to hypertensive emergency. Patient is currently on a nitro drip. Will reinitiate baseline carvedilol. Patient likely had an element of rebound hypertension secondary to abrupt cessation. Will attempt to wean off the nitro drip through the day. Unclear how volume overloaded patient truly is. Agree with gentle diuresis. 2. Acute kidney injury on chronic kidney disease stage III Clinical suspicion for acute deterioration secondary to hypertension and hypoxia. Patient appears to be responding well to hemodynamic stabilization. We will continue to monitor. Likely not necessary to have nephrology consult at this time, but we will continue to monitor. Agree with hospitalist that gentle diuresis is likely appropriate given pulmonary edema may be secondary to hypertensive emergency. 3. Diabetes mellitus type 2/PVD/BPH/advanced age/noncompliance/history of recent hospitalization Complicates care, management, recovery and prognosis. Continue baseline medications. Agree with sliding scale insulin. TIME: 32 minutes critical care time spent addressing patient's acute hypoxic respiratory failure, hypertensive emergency, acute kidney injury, diabetes, review of all data and collaboration with care team (6:30 AM to 7:30 AM) Code Visit 9xxxx: [id number] Critical care first hour
[2019-10-17] MEDS: Carvedilol 6.25 MG Tablet PO ×2 (09:57→22:33)
[2019-10-17] MEDS: Heparin Injection (Vial) 5,000 UNIT/ML VIAL 5000 UNIT SC ×2 (09:58→22:33)
[2019-10-17] MEDS: Furosemide 40 MG/4 ML Vial IV (09:59)
[2019-10-17] MEDS: Finasteride 5 MG Tablet PO (10:01)
--- NOTE | 2019-10-17 10:59 | CASEMGMT ---
Social Work Pt HCPOA is in EMR however, not all pages have been scanned in. SW met with pt and cousin Stacy and requested HCPOA and Living Will be brought to hospital. Pt confirms that he will ask POA to bring in the documents. RADHA Key
--- NOTE | 2019-10-17 15:47 | CHAPLAIN ---
Type of Pastoral Visit _x__ Initial Visit ___ Follow-up Visit ___ On-call Visit ___ General Patient Visit ___ Spiritual Assessment ___ Family Conference ___ Bereavement ___ Rapid Response ___ Code Blue ___ Other (describe below) Pastoral Care Referral From _x__ Patient ___ Family ___ Nurse ___ Physician ___ Balance Wheel Motion Inspector ___ Cam Milling Machine Operator ___ Other (describe below) Sacrament/Intervention _x__ Active listening ___ Anointing ___ Presybeterian ___ Bereavement ___ Communion _x__ Jil exploration ___ _x__ Life review _x__ Prayer ___ Reconciliation ___ Sacrament of Sick _x__ Supportive presence ___ Wedding ___ Other (describe below) Pastoral Comments
--- NOTE | 2019-10-17 16:31 | CASEMGMT ---
BOB CM Readmission Note Index Admission Dates: 09.13-09.17.2019 Diagnosis: Pneumonia, Septic Shock Discharge Diagnosis: Pneumonia Discharge Disposition: Home F/U: appt's made with PCP and specialist. Pt did attent appts. Readmission Date: 10.16.2019 Readmission Diagnosis: Pulmonary Edema, CHF, HTN Pt was doing well @ home on dc. States he became SOB. Did f/u with physician and was found to be hypertensive and dyspneic. Recommended to come to ER for further evaluation. Pt is on home O2. -DC Plan: return home on discharge. Linda HELMS RN ACM
[2019-10-17 17:31] LABS: Bedside Glucose 108 mg/dL (70-110)
[2019-10-17] MEDS: Tamsulosin HCl 0.4 MG Capsule PO (22:33)
[2019-10-17 22:51] LABS: Bedside Glucose 90 mg/dL (70-110)
[2019-10-18 03:00] VITALS: PULSE 53
[2019-10-18 04:15] VITALS: BP 125/60; PULSE 65; RESP 16; TEMP 36.4; O2SAT 100
[2019-10-18 06:50] LABS: Bedside Glucose 105 mg/dL (70-110)
[2019-10-18 07:08] LABS: BUN 24 mg/dL (7-18); BUN/Creat Ratio 21.1 RATIO (10-20); Calcium,Total 8.2 mg/dL (8.5-10.1); Chloride 102 mmol/L (98-107); Creatinine, Serum 1.14 mg/dL (0.70-1.30); EST Glomerular Filtration Rate 67 mL/min (>60); Est Glom Filt Rate - Afr Amer 81 mL/min (>60); Estimated Creatinine Clearance 41.42 ml/min; Glucose 100 mg/dL (74-106); Phosphorus 3.4 mg/dL (2.5-4.9); Potassium 3.5 mmol/L (3.5-5.1); Sodium Level 140 mmol/L (136-145)
[2019-10-18 07:35] VITALS: PULSE 61; O2SAT 98
[2019-10-18] MEDS: Aspirin 81 MG TAB.CHEW PO (07:43)
[2019-10-18] MEDS: Multivitamins,Ther W-Minerals Tablet 1 TABLET PO (07:43)
[2019-10-18] MEDS: Carvedilol 6.25 MG Tablet PO (07:44)
[2019-10-18] MEDS: Furosemide 40 MG/4 ML Vial IV (07:44)
[2019-10-18] MEDS: Heparin Injection (Vial) 5,000 UNIT/ML VIAL 5000 UNIT SC (07:44)
[2019-10-18] MEDS: Finasteride 5 MG Tablet PO (07:45)
[2019-10-18 08:02] VITALS: BP 119/64; PULSE 63; RESP 18; TEMP 36.3; O2SAT 99
[2019-10-18 09:45] VITALS: O2SAT 90; O2SAT 96
--- NOTE | 2019-10-18 10:34 | PCM.DC ---
- Discharge Diagnoses Current Active Problems: Current Active and Chronic Problems (Last Reviewed 09/29/19 @ 14:[address] Chas Hoyos MD) Hypertensive emergency (Acute) You will use the following diet at home:: Calorie/Carbohydrate Controlled (specify 1200, 1400, etc) - 1800 chandler / day, Cardiac Your food should be the consistency of: Regular Your liquids should be the consistency of: Regular/Thin Discharge Activity: Return to Normal Activity Additional Instructions: Check weight daily, if 2 or more pound weight gain in 24 hours, or 4-5 pounds in 7 days, call doctor for instructions on lasix. You will need a BMP (blood test) checked at follow up next week. Limit sodium to less than 3 grams daily, limit fluid intake to 2 liters daily Allergies/Adverse Reactions: Allergies Sulfa (Sulfonamide Antibiotics) Allergy (Verified 10/16/19 15:03) Swelling acetaminophen [From [place]] Adverse Reaction (Verified 10/16/19 15:03) confusion hydrocodone bitartrate [From [place]] Adverse Reaction (Verified 10/16/19 15:03) confusion Medications to take at Discharge Tamsulosin HCl [Flomax] 0.4 mg PO QHS 04/21/15 Multivit-Min/FA/Lycopen/Lutein [Centrum Silver Tablet] 1 ea PO DAILY 05/12/15 Finasteride 1 tab PO DAILY 09/13/19 metFORMIN HCl [Glucophage] 500 mg PO DAILY 09/13/19 Aspirin [Aspirin, Baby] 81 mg PO DAILY@0800 10/16/19 Carvedilol 6.25 mg PO BID@0900,2100 10/16/19 Furosemide [Lasix] 40 mg PO DAILY #30 tab 10/18/19 Potassium Chloride [K-Dur] 20 meq PO DAILY #30 tab 10/18/19 The following prescriptions were given: Potassium Chloride [K-Dur] 20 meq PO DAILY #30 tab [facility]: [id number] Furosemide [Lasix] 40 mg PO DAILY #30 tab [facility]: [id number] Primary Care Physician: Carter Coon DO [Primary Care Provider] - Please follow up with your Primary Care Physician in: 1 week Test Results: Test results from this visit will be discussed in further detail at your follow-up appointment, if applicable. Proposed Discharge Date: 10/18/19
[2019-10-18] MEDS: Insulin Lispro 100 UNIT/ML INSULN.PEN SC (11:05)
--- NOTE | 2019-10-18 12:25 | PCM.DC.SUM ---
<Declan Quiroga - Last Filed: 10/18/19 12:25> Discharge Date and Diagnosis Date of Admission: 10/16/19 Date of Discharge: 10/18/19 - Primary Discharge Diagnosis Active and Suspected Problems (Last Reviewed 09/29/19 @ 14:[address] Chas Hoyos MD) Acute hypoxic respiratory failure 2/2 Flash pulmonary edema Hypertensive emergency (Acute) Acute on chronic systolic CHF DMt2 PVD BPH Prior nephrectomy - Secondary Discharge Diagnosis Chronic Problems (Last Reviewed 09/29/19 @ 14:[address] Chas Hoyos MD) History of CHF (congestive heart failure) (Chronic) Chronic sinus infection (Chronic) Diabetes mellitus, type II (Chronic) PVD (peripheral vascular disease) (Chronic) BPH (benign prostatic hyperplasia) (Chronic) History of nephrectomy, unilateral (Chronic) Hospital Course and Treatment Imaging Results: RAD/Chest 1 View (Portable) IMPRESSION: Findings in keeping with CHF and blunting of both costophrenic angles. Operations: None Procedures: None Summary of Care Provided: Hospital Course: The patient is a 74 year old M with pmhx systolic CHF, DMt2, PVD, prior nephrectomy, who presented to the ER with severe SOB. He ate lunch which was a frozen meal from [employer] and left for an appointment with his agricultural systems specialist Dr. Auguste. On the way he started becoming more and more SOB. He got to the appointment and then left for the ER, on the way he felt like he could not breath at all and stated he felt like he was drowning. In the ER he appeared to have flash pulmonary edema and HTN emergency. ABG showed pH 7.34, oPB707, pO2 362, CXR showed CHF, LA was 5.0, SpO2 was 76% on NRB 15lpm, p135, BP 186/110, RR 48. He responded well to bipap. Lasix was initiated. He was placed in the PCU on tele overnight and had resolution of his symptoms. The following day he was weaned off o2. I also discussed his case with the home health care social worker who indicated that the community care network had been to his house and noted that he was eating primarily junk food. Education on diet, fluid and sodium restriction was strongly emphasized by myself and Dr. Butler, and discussed with his daughter who was present. He was started on home lasix and potassium. He will need close follow up within a week and a BMP checked at follow up. He was discharged home in stable condition. This patient was seen by Declan Quiroga PA-C under the supervision of Dr. Butler. [] - Physical Exam Vitals/I&O's: Vital Signs Temp Pulse Resp BP Pulse Ox 97.4 F L 63 18 119/64 96 10/18/19 08:02 10/18/19 08:02 10/18/19 08:02 10/18/19 08:02 10/18/19 09:45 Oxygen Flow Rate (L/min) 2 Oxygen Delivery Method Nasal Cannula Weight: 153 lb 10.595 oz Body Mass Index (BMI) 27.8 Finger Stick Blood Glucose 227 Intake and Output for Last 24 Hours 10/16/19 10/17/19 10/18/19 23:59 23:59 23:59 Intake Total 195.9 / 201.9 998.00 / 998.00 120 / 120 Output Total 1050 / 1050 3150 / 3150 200 / 200 Balance -854.1 / -848.1 -2152.00 / -2152.00 -80 / -80 General: Alert, Oriented x3, Cooperative, - - frail HEENT: Atraumatic, PERRLA, EOMI, Normocephalic Neck: Supple, No JVD, Negative Carotid Bruits Lungs: Clear to auscultation, Normal air movement Cardiovascular: Regular rate, No murmurs Abdomen: Bowel Sounds Present, Soft, Non Tender Extremities: No edema, Capillary Refill Less than 3 Seconds Skin: No rashes, No breakdown Musculoskeletal: No Tenderness to Palpation of Joints or Extremities Neurological: Cranial nerves II-XII grossly intact Psych/Mental Status: Normal Affect, Appropriate, Alert and oriented to time, place, person, mood and affect Microbiology Past 72 Hours 10/16/19 15:02 Blood Culture (Wb) - Anticubital Right Blood Culture - Preliminary No growth in 48 hours. 10/16/19 15:09 Blood Culture (Wb) - Anticubital Right Blood Culture - Preliminary No growth in 48 hours. Laboratory Results 10/17/19 17:05: POC Glucose 108 10/17/19 22:30: POC Glucose 90 10/18/19 06:12: Sodium 140, Potassium 3.5, Chloride 102, Carbon Dioxide 32.0, BUN 24 H, Creatinine 1.14, Estim Creat Clear Calc 41.42, Est GFR (MDRD) Af Amer 81, Est GFR (MDRD) Non-Af 67, BUN/Creatinine Ratio 21.1 H, Glucose 100, Calcium 8.2 L, Phosphorus 3.4, Albumin 3.0 L 10/18/19 06:40: POC Glucose 105 Current Medications Aspirin (Aspirin, Baby) 81 mg PO DAILY@0800 [facility] Last Admin: 10/18/19 07:43 Dose: 81 mg Documented by: Carvedilol (Coreg) 6.25 mg PO BID [facility] Last Admin: 10/18/19 07:44 Dose: 6.25 mg Documented by: Finasteride (Proscar) 5 mg PO DAILY [facility] Last Admin: 10/18/19 07:45 Dose: 5 mg Documented by: Furosemide (Lasix) 40 mg IV DAILY [facility] Last Admin: 10/18/19 07:44 Dose: 40 mg Documented by: Glucagon () 1 mg IM .X1 PRN PRN Reason: Hypoglycemia Heparin Sodium (Porcine) (Heparin Na) 5,000 unit SC Q12 [facility] Last Admin: 10/18/19 07:44 Dose: 5,000 unit Documented by: Hydralazine HCl (Apresoline Iv) 10 mg IV Q6H PRN PRN PRN Reason: SBP>150 Dextrose (Dextrose 10%-Water) 250 mls @ 999 mls/hr IV .Q16M PRN; Protocol PRN Reason: HYPOGLYCEMIA Insulin Human Lispro (Humalog Kwikpen (Bkc)) 0 unit SC ACHS [facility]; Protocol Last Admin: 10/18/19 11:05 Dose: 2 u Documented by: Multivitamins/Minerals (Multivitamin With Minerals (Bkc)) 1 tablet PO DAILY@0800 [facility] Last Admin: 10/18/19 07:43 Dose: 1 tablet Documented by: Sodium Chloride () 10 - 40 ml IV UD PRN PRN Reason: SALINE FLUSH Tamsulosin HCl (Flomax) 0.4 mg PO QHS [facility] Last Admin: 10/17/19 22:33 Dose: 0.4 mg Documented by: Discharge Diet: Low fat/ Low Cholesterol, 1800 Calorie Control Diet, 2000 mg Sodium Diet, - - fluid restriction 1500cc daily Discharge Activity: Return to Normal Activity Home Medications: Medications to take at Discharge Tamsulosin HCl [Flomax] 0.4 mg PO QHS 04/21/15 Multivit-Min/FA/Lycopen/Lutein [Centrum Silver Tablet] 1 ea PO DAILY 05/12/15 Finasteride 1 tab PO DAILY 09/13/19 metFORMIN HCl [Glucophage] 500 mg PO DAILY 09/13/19 Aspirin [Aspirin, Baby] 81 mg PO DAILY@0800 10/16/19 Carvedilol 6.25 mg PO BID@0900,2100 10/16/19 Furosemide [Lasix] 40 mg PO DAILY #30 tab 10/18/19 Potassium Chloride [K-Dur] 20 meq PO DAILY #30 tab 10/18/19 Following Prescrptions Were Given to Patient: Potassium Chloride [K-Dur] 20 meq PO DAILY #30 tab Transmission Status: Received by [facility] Furosemide [Lasix] 40 mg PO DAILY #30 tab Transmission Status: Received by [id number] Primary Care Physician: Carter Coon DO [Primary Care Provider] - Please follow up with your Primary Care Physician in: 1 week Please Follow Up With: Carter Coon DO Disposition: Home Minutes spent on discharge:: 40 Patient Condition:: Stable Medical Necessity - Tobacco Use Smoking Status: Never smoker Tobacco Use: Secondhand Meaningful Use Info Meaningful Use Diagnoses (Choose all that apply): CHF - CHF MARTÍN/ARB ordered at discharge?: No Reason MARTÍN/ARB not ordered?: Worsening renal disease Documented LVEF (%): 20 <Shirley Butler - Last Filed: 10/19/19 18:41> Discharge Date and Diagnosis - Secondary Discharge Diagnosis Chronic Problems (Last Reviewed 09/29/19 @ 14:[address] Chas Hoyos MD) History of CHF (congestive heart failure) (Chronic) Chronic sinus infection (Chronic) Diabetes mellitus, type II (Chronic) PVD (peripheral vascular disease) (Chronic) BPH (benign prostatic hyperplasia) (Chronic) History of nephrectomy, unilateral (Chronic) Hospital Course and Treatment Summary of Care Provided: This patient was seen in conjunction with JEAN Gandhi. I have independently interviewed and examined the patient and reviewed pertinent historical, laboratory, and other data. Please refer to JEAN Gandhi note for his patient's presentation, findings, and recommendations. I have reviewed and his note and concur with his documentation 74-year-old male with past medical history of chronic systolic CHF, type II DM, history of CKD, status post right nephrectomy who was recently admitted and discharged with pneumonia comes in with progressive shortness of breath, as well as elevated blood pressure. Patient had followed up with his agricultural systems specialist and said that his blood pressure was elevated because he was using his stockings. He however was found to be very hypoxic and was brought to the emergency room. In the emergency room he was found to have flash pulmonary edema and hypertensive emergency. His chest x-ray was compatible with acute CHF. Patient was admitted to ICU and started on Lasix with improvement in his breathing status. He continued to improve and was transferred to the progressive care unit the next day. Upon further history taking it was realized that patient has been relying on TV dinners and that was likely the source of his salt intake causing his CHF exacerbation. I spent an extensive amount of time discussing patient's low-salt diet and active CHF management. Encouraged him to continue to use his stockings. On the day of discharge, patient was seen and examined. Denied any new complaint. He was off oxygen, he felt much improved Physical Exam: Gen: Comfortable not pale, not jaundiced CVS:HS I +II, regular, no murmurs RESP: Diminished at lung bases GI: BS present and normal, soft, nontender, no palpable organs EXT: Trace bilateral edema, chronic venous changes from chronic CHF - Physical Exam Vitals/I&O's: Vital Signs Temp Pulse Resp BP Pulse Ox 98.4 F 84 18 123/70 H 96 10/18/19 12:30 10/18/19 12:30 10/18/19 12:30 10/18/19 12:30 10/18/19 12:30 Oxygen Flow Rate (L/min) 2 Oxygen Delivery Method Room Air Weight: 69.7 kg Body Mass Index (BMI) 27.8 Finger Stick Blood Glucose 227 Intake and Output for Last 24 Hours 10/17/19 10/18/19 10/19/19 23:59 23:59 23:59 Intake Total 998.00 / 998.00 600 / 600 Output Total 3150 / 3150 600 / 600 Balance -2152.00 / -2152.00 0 / 0 Microbiology Past 72 Hours 10/16/19 15:02 Blood Culture (Wb) - Anticubital Right Blood Culture - Preliminary No growth in 48 hours. 10/16/19 15:09 Blood Culture (Wb) - Anticubital Right Blood Culture - Preliminary No growth in 48 hours. Code Visit Inpatient E&M: [id number] Disch Hosp
[2019-10-18 12:30] VITALS: BP 123/70; PULSE 84; RESP 18; TEMP 36.9; O2SAT 96
[2019-10-20 07:36] LABS: Bedside Glucose 197 mg/dL (70-110)
[2019-10-20 07:36] LABS: Bedside Glucose 196 mg/dL (70-110)
--- NOTE | 2019-10-20 16:24 | CASEMGMT ---
Case Management DC F/u Call: DC Date: 10/18/2019 DC Diagnosis: Acute hypoxic respiratory failure 2/2 Flash pulmonary edema, Hypertensive emergency (Acute), Acute on chronic systolic CHF, DMt2, PVD, BPH, Prior nephrectomy DC Disposition: Home Lace/Strata: 06/29 Called patient listed cell phone on demographics, patient answered, introduced self and role. Patient states that hs is doing better. Confirmed picked up and has been taking his DC medications. Question re: signs of dehydration from Lasix. Educated on s/s dehydration and discussed f/u with providers and when to call to be seen sooner if noticing any adverse changes in condition. Patient states that he was just concerned with only having one kidney. Has been measure I&O's and states what has been going in has been equivalent to what has been coming out. Has an appointment with Dr Coon (pcp) on 10/27/19 and 12/01/19. Has an appt with Nephro Dr Mckinney on 12/08/19 and a cardio appt on 12/08/19. Has a PFT appt on 11/20/19. Denies any further questions, concerns, issues with medications, ACI, or F/u. Thanked patient for choosing care with [facility] and ended conversation. Claudia Griffin RNCM
== END 2019-10-18 12:42 | disposition home or self-care (01) | DRG 291 ==
LOC: ED 15:18 → ICU 18:41 → PCU 10-17 17:39
PROVIDERS: Admitting Provider Family Medicine; Emergency Provider Emergency Medicine; PCP Family Medicine; Visit Provider Internal Medicine
DX: I13.0 Hypertensive heart and chronic kidney disease with heart failure and stage 1 through stage 4 chronic kidney disease, or unspecified chronic kidney disease (principal); J96.01 Acute respiratory failure with hypoxia; I50.23 Acute on chronic systolic (congestive) heart failure; N17.9 Acute kidney failure, unspecified; I16.1 Hypertensive emergency; N40.0 Benign prostatic hyperplasia without lower urinary tract symptoms; N18.3 Chronic kidney disease, stage 3 (moderate); E11.22 Type 2 diabetes mellitus with diabetic chronic kidney disease; Z79.84 Long term (current) use of oral hypoglycemic drugs; E78.5 Hyperlipidemia, unspecified; Z90.5 Acquired absence of kidney; I73.9 Peripheral vascular disease, unspecified; Z77.22 Contact with and (suspected) exposure to environmental tobacco smoke (acute) (chronic)
CPT/HCPCS: 36415; 36600; 71045; 80048; 80053; 80069; 82803; 82962; 83605; 83880; 84484; 85025; 85610; 85730; 87040; 93005; 94002; 94003; 97162; 97166; 97802; 99285; A4216; J1940

== ENCOUNTER → 2019-10-21 15:56 | Outpatient (CLI) | payer MEDICARE, MEDICAID, SELFPAY ==
[2019-10-16 16:17] VITALS: BMI 27.8
[2019-10-21 17:29] LABS: Anion Gap 4 (5-15); BUN 31 mg/dL (7-18); BUN/Creat Ratio 21.4 RATIO (10-20); Calcium,Total 9.1 mg/dL (8.5-10.1); Chloride 101 mmol/L (98-107); Creatinine, Serum 1.45 mg/dL (0.70-1.30); EST Glomerular Filtration Rate 50 mL/min (>60); Est Glom Filt Rate - Afr Amer 61 mL/min (>60); Glucose 89 mg/dL (74-106); Potassium 4.4 mmol/L (3.5-5.1); Sodium Level 137 mmol/L (136-145)
== END ==
PROVIDERS: PCP Family Medicine; Referring Provider Family Medicine; Visit Provider Family Medicine
DX: N18.3 Chronic kidney disease, stage 3 (moderate) (principal); Z51.81 Encounter for therapeutic drug level monitoring
CPT/HCPCS: 36415; 80048

== ENCOUNTER → 2019-11-03 13:29 | Outpatient (CLI) | payer MEDICARE, MEDICAID, SELFPAY ==
[2019-10-16 16:17] VITALS: BMI 27.8
--- NOTE | 2019-11-03 13:32 | CT_ITS ---
STUDY: CT BRAIN AND SINUSES WITHOUT CONTRAST REASON FOR EXAM: Male, 74 years old. CHRONIC SINUSITITS, JENNIFER PROTOCOL, UNABLE TO STRAIGHTEN PATIENTS HEAD RADIATION DOSAGE (If Supplied By Facility): CTDIvol = ( 33.45 ) mGy, DLP = ( 809.80 ) mGycm TECHNIQUE: Transaxial CT imaging of the brain was performed without administration of contrast. Individualized dose optimization techniques were used for this CT. COMPARISON: No relevant priors. FINDINGS: CT BRAIN Normal soft tissue structures. Normal calvarium. Normal size ventricles and extra-axial spaces for the patient''s age. Normal white matter tracts of the cerebral hemispheres. Normal basal ganglia and thalami. Normal brainstem. Normal cerebellum. There is no intracranial hemorrhage. There are no findings of an acute ischemic infarction. CT SINUSES Post Surgical Changes: None. Frontal Sinus and Recess: Normal aeration without mucosal inflammatory disease. Ethmoidal Sinuses: Normal aeration without mucosal inflammatory disease. Maxillary Sinuses: Normal aeration without mucosal inflammatory disease. Ostiomeatal Complex: Clear. Sphenoid Sinus: Normal aeration without mucosal inflammatory disease. Sphenoethmoidal Recess: Clear. Nasal Turbinate (Right): Middle Turbinate (Right): Normal. Middle Turbinate (Left): Normal. Inferior Turbinate (Right): Normal. Inferior Turbinate (Left): Normal. Nasal Septum: Right sided nasal septal deviation but without a nasal septal spur. Nasal Airway: Clear. Cribiform Plate / Anterior Cranial Fossa: Normal. Orbits: Normal. CT/Sinus/Facial Bone IMPRESSION: Normal enhanced CT scan of the brain and sinuses. Electronically Signed: Girma Ruiz, at 15:23 EDT , Service support ,
== END ==
PROVIDERS: PCP Family Medicine; Referring Provider Otolaryngology; Visit Provider Otolaryngology
DX: J32.9 Chronic sinusitis, unspecified (principal)
CPT/HCPCS: 70486

== ENCOUNTER → 2020-01-12 12:27 | Outpatient (CLI) | payer MEDICARE, MEDICAID, SELFPAY ==
[2019-09-25 09:55] VITALS: BMI 25.6
[2019-10-16 16:17] VITALS: BMI 27.8
--- NOTE | 2020-01-15 08:20 | PFT ---
INTRODUCTION: The patient is a 74-year-old male that presents for pulmonary function studies secondary to a diagnosis of shortness of breath. Respiratory therapy reports good patient effort. Bronchodilators were used during testing. INTERPRETATION: Forced expiration spirometry demonstrates no evidence of a large airways obstructive ventilatory defect. There was no significant response to aerosolized bronchodilators. Spirograms are of good quality and plateau normally. Body plethysmography was performed and reveals lung volumes to be within normal limits. Diffusing capacity by single breath CO was also within normal limits. IMPRESSION: Grossly normal pulmonary function studies.
== END ==
PROVIDERS: PCP Family Medicine; Referring Provider Nurse Practitioner Acute Care; Visit Provider Nurse Practitioner Acute Care
DX: R06.02 Shortness of breath (principal)
CPT/HCPCS: 94060; 94726; 94729

== ENCOUNTER → 2020-01-13 12:13 | Outpatient (CLI) | payer MEDICARE, MEDICAID, SELFPAY ==
[2019-09-25 09:55] VITALS: BMI 25.6
[2019-10-16 16:17] VITALS: BMI 27.8
[2020-01-13 12:54] VITALS: PULSE 100; PULSE 104; PULSE 110; PULSE 85; PULSE 88; PULSE 89; PULSE 90; PULSE 99; O2SAT 97; O2SAT 98
--- NOTE | 2020-01-13 12:57 | CPS ---
Patient walked a great pace, stated that he feels like he could have walked a lot longer and was not short of breath at all.
--- NOTE | 2020-01-15 11:04 | PCM.PSN.6M ---
PSN 6 Minute Walk Test - 6 Minute Walk Test 6 Minute Walk Test: 6 Minute Walk Test PSN:6-Minute Walk Test Start: 01/13/20 12:53 Freq: Status: Active Protocol: [id number].6MINW Document 01/13/20 12:54 MARTHAALEYDA (Rec: 01/13/20 12:58 MARTHAALEYDA [id number]) 6 Minute Walk Test Date Performed 01/13/20 Time Performed 12:30 Height 5 ft 4 in Weight: 138 lb Weight in Pounds 138.[address]: Maris Mccracken Assistive device used: None Pre-test Oxygen Delivery Method Room Air Pulse Ox (%) 98 Pulse Rate (60-100 beats/min) 88 Dyspnea Juanita Scale (0-10) 0 Exertion Juanita Scale (6-20) 6 1st minute Oxygen Delivery Method Room Air Pulse Ox (%) 98 Pulse Rate (60-100 beats/min) 90 2nd minute Oxygen Delivery Method Room Air Pulse Ox (%) 97 Pulse Rate (60-100 beats/min) 89 3rd minute Oxygen Delivery Method Room Air Pulse Ox (%) 98 Pulse Rate (60-100 beats/min) 99 4th minute Oxygen Delivery Method Room Air Pulse Ox (%) 98 Pulse Rate (60-100 beats/min) 104 H 5th minute Oxygen Delivery Method Room Air Pulse Ox (%) 98 Pulse Rate (60-100 beats/min) 100 6th minute Oxygen Delivery Method Room Air Pulse Ox (%) 98 Pulse Rate (60-100 beats/min) 110 H Dyspnea Juanita Scale (0-10) 0 Exertion Juanita Scale (6-20) 11 Post-test Oxygen Delivery Method Room Air Pulse Ox (%) 98 Pulse Rate (60-100 beats/min) 85 Full Laps Walked 19 Partial Lap, Number of Tiles Walked 5 Total Distance Walked (ft) 1126 01/13/20 12:57 Cardiopulmonary Services by Demetrice Vigil Patient walked a great pace, stated that he feels like he could have walked a lot longer and was not short of breath at all. Initialized on 01/13/20 12:57 - END OF NOTE - Interpretation Interpretation: The patient ambulated 1126 feet over the course of 6 minutes beginning on room air without assistive devices or breaks. Pretesting oxygen saturation was noted to be 98% on room air. With ambulation, the shun oxygen saturation was 97%. There was no significant exertional oxygen desaturation. - Recommendations Recommendations: There is no indication for the use of supplemental oxygen at this time.
== END ==
PROVIDERS: PCP Family Medicine; Referring Provider Nurse Practitioner Acute Care; Visit Provider Nurse Practitioner Acute Care
DX: R06.02 Shortness of breath (principal)
CPT/HCPCS: 94618

== ENCOUNTER → 2020-01-22 10:36 | Outpatient (CLI) | payer MEDICARE, MEDICAID, SELFPAY ==
[2019-10-16 16:17] VITALS: BMI 27.8
[2020-01-22 12:55] LABS: Albumin, Serum 3.7 g/dL (3.2-5.0); BUN 20 mg/dL (7-18); Chloride 102 mmol/L (98-107); Creatinine, Serum 1.25 mg/dL (0.70-1.30); EST Glomerular Filtration Rate 60 mL/min (>60); Est Glom Filt Rate - Afr Amer 72 mL/min (>60); Glucose 144 mg/dL (74-106); Phosphorus 2.5 mg/dL (2.5-4.9); Potassium 4.1 mmol/L (3.5-5.1); Sodium Level 138 mmol/L (136-145)
[2020-01-22 12:57] LABS: PTHIN 56.1 pg/mL (18.4-80.1)
[2020-01-22 12:59] LABS: Vitamin D,25 Hydroxy 44.2 ng/mL
== END ==
PROVIDERS: PCP Family Medicine; Visit Provider Internal Medicine Nephrology
DX: N18.3 Chronic kidney disease, stage 3 (moderate) (principal)
CPT/HCPCS: 36415; 80069; 82306; 83970

== ENCOUNTER → 2020-01-27 13:42 | Outpatient (CLI) | payer MEDICARE, MEDICAID, SELFPAY ==
[2019-10-16 16:17] VITALS: BMI 27.8
[2020-01-27 15:01] LABS: PSA,Total - Annual Screen 0.41 ng/mL (0.00-4.00)
== END ==
PROVIDERS: PCP Family Medicine; Visit Provider Urology
DX: Z12.5 Encounter for screening for malignant neoplasm of prostate (principal)
CPT/HCPCS: 36415; 84153; G0103

== ENCOUNTER → 2020-03-01 13:30 | Outpatient (CLI) | payer MEDICARE, MEDICAID, SELFPAY ==
[2020-03-01 09:03] VITALS: BMI 25.4
[2020-03-01 14:02] LABS: Hematocrit 40.9 % (40-54); Hemoglobin 13.7 g/dL (13.0-16.5); Mean Corp Hgb Conc 33.5 g/dL (32-36); Mean Corpuscular Volume 95.6 fL (80-94); Mean Platelet Vol. 8.5 fl (6.2-12.0); Platelet Count 261 K/mm3 (150-450); RBC Distribution Width CV 12.5 % (11.6-14.6); RBC Distribution Width SD 43.5 fl (35.1-43.9); Red Blood Count 4.28 M/mm3 (4.6-6.2); White Blood Count 7.1 K/mm3 (4.4-11.0)
[2020-03-01 14:24] LABS: ALB/GLOB Ratio 0.9 RATIO (0.9-2.4); AST(SGOT) 32 U/L (15-37); Alanine Aminotransfer ALT/SGPT 44 U/L (16-61); Albumin, Serum 3.7 g/dL (3.2-5.0); Alkaline Phosphatase 109 U/L (45-117); Anion Gap 8 (5-15); BUN 27 mg/dL (7-18); Calcium,Total 8.7 mg/dL (8.5-10.1); Chloride 100 mmol/L (98-107); Creatinine, Serum 1.42 mg/dL (0.70-1.30); EST Glomerular Filtration Rate 52 mL/min (>60); Est Glom Filt Rate - Afr Amer 62 mL/min (>60); Globulin 4.1 g/dL (2.2-4.2); Glucose 153 mg/dL (74-106); Phosphorus 2.6 mg/dL (2.5-4.9); Potassium 4.2 mmol/L (3.5-5.1); Protein, Total 7.8 g/dL (6.4-8.2); Sodium Level 136 mmol/L (136-145)
== END ==
PROVIDERS: PCP Family Medicine; Referring Provider Specialist; Visit Provider Internal Medicine Nephrology
DX: N18.3 Chronic kidney disease, stage 3 (moderate) (principal); D63.1 Anemia in chronic kidney disease; Z86.79 Personal history of other diseases of the circulatory system; Z98.890 Other specified postprocedural states
CPT/HCPCS: 36415; 80053; 84100; 85027

== ENCOUNTER → 2020-03-17 12:45 | Outpatient (CLI) | payer MEDICARE, MEDICAID, SELFPAY ==
[2019-10-16 16:17] VITALS: BMI 27.8
[2020-03-01 09:03] VITALS: BMI 25.4
--- NOTE | 2020-03-17 12:46 | ECHOCS_ITS ---
Reason For Study: CHF Procedure This was a 2D Doppler, Color Flow transthoracic echocardiogram. The study was technically difficult. Contrast injection was performed. Exam performed in department. Left Ventricle Normal LV size. Concentric left ventricular hypertrophy. The estimated ejection fraction is 55 %. No evidence for diastolic dysfunction. No regional wall motion abnormalities noted. Right Ventricle Normal RV size. Normal systolic function. Atria Normal left atrium. Normal right atrium. No doppler evidence for ASD. Mitral Valve There is no mitral valve stenosis. No mitral valve insufficiency. Tricuspid Valve There is no tricuspid stenosis. Trivial tricuspid valve insufficiency. Pulmonary artery systolic pressure is 25 mmHg. Aortic Valve probably tricuspid. There is no aortic stenosis. Mild (1+) aortic valve insufficiency. Pulmonic Valve There is no pulmonic valvular stenosis. No pulmonic valve insufficiency. Great Vessels Normal aortic root. Pericardium/Pleural No pericardial effusion. Medication 22 gauge I.V. with prn adaptor inserted into right arm. Diluted definity 2ml given slow IV push to enhance endocardial definition. MMode/2D Measurements & Calculations LVIDd: 3.5 cm IVSd: 1.4 cm LA dimension: 2.5 cm LVIDs: 2.5 cm LVPWd: 1.3 cm FS: 29.7 % LAV(MOD-sp4): 24.1 ml LA A4 area: 12.1 cm2 RA A4 area: 9.7 cm2 Time Measurements MV dec time: 0.23 sec Doppler Measurements & Calculations MV E max anurag: 71.2 cm/sec Lat Peak E' Anurag: 6.6 cm/sec Med Peak E' Anurag: 4.8 cm/sec MV A max anurag: 130.5 cm/sec E/E' lat: 10.7 E/E' med: 14.7 MV E/A: 0.55 Ao V2 max: 136.1 cm/sec AI max anurag: 423.7 cm/sec LV V1 max: 86.7 cm/sec Ao max P.4 mmHg AI max P.8 mmHg LV V1 max P.0 mmHg AI dec slope: 262.6 cm/sec2 AI P1/2t: 472.7 msec PA V2 max: 130.0 cm/sec TR max anurag: 247.0 cm/sec TR max P.4 mmHg Interpretation Summary The estimated ejection fraction is 55 %. No evidence for diastolic dysfunction. Mild (1+) aortic valve insufficiency. Ordering Physician: Chas Hoyos Referring Physician: Carter Coon Performed By: Adam Lovett RCS
== END ==
PROVIDERS: PCP Family Medicine; Referring Provider Specialist; Visit Provider Specialist
DX: I50.1 Left ventricular failure, unspecified (principal); Z98.890 Other specified postprocedural states
CPT/HCPCS: 93306; Q9957; A4216; C8929

== ENCOUNTER → 2020-07-01 08:50 | Outpatient (CLI) | payer MEDICARE, MEDICAID, SELFPAY ==
[2020-03-01 09:03] VITALS: BMI 25.4
[2020-07-01 09:33] LABS: Hematocrit 41.2 % (40-54); Hemoglobin 13.4 g/dL (13.0-16.5); Mean Corp Hgb Conc 32.5 g/dL (32-36); Mean Corpuscular Hgb 30.8 pg (27.0-32.0); Mean Corpuscular Volume 94.7 fL (80-94); Mean Platelet Vol. 8.3 fl (6.2-12.0); Platelet Count 286 K/mm3 (150-450); RBC Distribution Width CV 11.9 % (11.6-14.6); Red Blood Count 4.35 M/mm3 (4.6-6.2)
[2020-07-01 10:00] LABS: Albumin, Serum 3.7 g/dL (3.2-5.0); BUN 27 mg/dL (7-18); BUN/Creat Ratio 20.3 RATIO (10-20); Calcium,Total 8.5 mg/dL (8.5-10.1); Chloride 99 mmol/L (98-107); Creatinine, Serum 1.33 mg/dL (0.70-1.30); EST Glomerular Filtration Rate 56 mL/min (>60); Est Glom Filt Rate - Afr Amer 67 mL/min (>60); Glucose 121 mg/dL (74-106); Potassium 4.2 mmol/L (3.5-5.1); Sodium Level 136 mmol/L (136-145)
[2020-07-01 10:01] LABS: Microalbumin,Random Urine < 5.0 mg/L (NO RANGE EST.)
== END ==
PROVIDERS: PCP Family Medicine; Referring Provider Internal Medicine Nephrology; Visit Provider Internal Medicine Nephrology
DX: E11.22 Type 2 diabetes mellitus with diabetic chronic kidney disease (principal); N18.30 Chronic kidney disease, stage 3 unspecified
CPT/HCPCS: 36415; 80069; 82043; 82570; 85027

== ENCOUNTER → 2021-03-10 13:39 | Outpatient (CLI) | payer MEDICARE, MEDICAID, SELFPAY ==
[2020-03-01 09:03] VITALS: BMI 25.4
[2020-11-08 12:50] VITALS: BMI 23.8
[2021-03-10 14:51] LABS: Hematocrit 38.2 % (40-54); Hemoglobin 12.8 g/dL (13.0-16.5); Mean Corp Hgb Conc 33.5 g/dL (32-36); Mean Corpuscular Volume 92.5 fL (80-94); Mean Platelet Vol. 8.4 fl (6.2-12.0); Platelet Count 258 K/mm3 (150-450); RBC Distribution Width CV 12.2 % (11.6-14.6); RBC Distribution Width SD 41.6 fl (35.1-43.9); Red Blood Count 4.13 M/mm3 (4.6-6.2); White Blood Count 6.1 K/mm3 (4.4-11.0)
[2021-03-10 15:05] LABS: Protein, Urine (Random) < 6.0 mg/dL (<11.9)
[2021-03-10 15:37] LABS: Albumin, Serum 3.6 g/dL (3.2-5.0); BUN 33 mg/dL (7-18); BUN/Creat Ratio 22.8 RATIO (10-20); Calcium,Total 8.6 mg/dL (8.5-10.1); Chloride 98 mmol/L (98-107); Creatinine, Serum 1.45 mg/dL (0.70-1.30); EST Glomerular Filtration Rate 50 mL/min (>60); Est Glom Filt Rate - Afr Amer 61 mL/min (>60); Glucose 99 mg/dL (74-106); Phosphorus 3.6 mg/dL (2.5-4.9); Potassium 4.3 mmol/L (3.5-5.1); Sodium Level 135 mmol/L (136-145)
== END ==
PROVIDERS: PCP Family Medicine; Referring Provider Internal Medicine Nephrology; Visit Provider Internal Medicine Nephrology
DX: E11.22 Type 2 diabetes mellitus with diabetic chronic kidney disease (principal); N18.31 Chronic kidney disease, stage 3a
CPT/HCPCS: 36415; 80069; 82570; 84156; 85027

== ENCOUNTER 2021-10-12 16:09 | Outpatient (CLI) | payer MEDICARE, MEDICAID, SELFPAY ==
[2020-11-08 12:50] VITALS: BMI 23.8
[2021-10-12 17:22] LABS: Protein, Urine (Random) < 6.0 mg/dL (<11.9)
[2021-10-12 18:06] LABS: Albumin, Serum 3.6 g/dL (3.2-5.0); BUN 26 mg/dL (7-18); BUN/Creat Ratio 18.8 RATIO (10-20); Calcium,Total 8.7 mg/dL (8.5-10.1); Chloride 99 mmol/L (98-107); Creatinine, Serum 1.38 mg/dL (0.70-1.30); EST Glomerular Filtration Rate 53 mL/min (>60); Est Glom Filt Rate - Afr Amer 64 mL/min (>60); Glucose 143 mg/dL (74-106); Phosphorus 3.3 mg/dL (2.5-4.9); Potassium 4.3 mmol/L (3.5-5.1); Sodium Level 136 mmol/L (136-145)
== END 2021-10-12 23:59 | disposition home or self-care (01) ==
PROVIDERS: PCP Family Medicine; Visit Provider Internal Medicine Nephrology
DX: E11.22 Type 2 diabetes mellitus with diabetic chronic kidney disease (principal); N18.31 Chronic kidney disease, stage 3a
CPT/HCPCS: 36415; 80069; 82570; 84156

== ENCOUNTER → 2021-10-26 15:10 | Outpatient (REF) | payer SELFPAY ==
[2021-10-26 16:44] LABS: HIV - WCH Non-Reactive (Nonreactive); Hepatitis B Surface Antibody Non-Reactive; Hepatitis B Surface Antigen Non-Reactive (Nonreactive); Hepatitis C Antibody Non-Reactive (Nonreactive)
[2021-10-28 15:22] LABS: Hepatitis B Core Ab Total Negative (Negative)
== END | disposition home or self-care (01) ==
LOC: ED 15:10
PROVIDERS: PCP Family Medicine; Visit Provider Emergency Medicine
DX: Z00.00 Encounter for general adult medical examination without abnormal findings (principal)
CPT/HCPCS: 86703; 86704; 86706; 86803; 87340

== ENCOUNTER → 2022-08-02 | Outpatient (CLI) | payer MEDICARE, MEDICAID, SELFPAY ==
[2022-08-02 14:43] LABS: Hematocrit 42.1 % (40-54); Hemoglobin 14.3 g/dL (13.0-16.5); Mean Corpuscular Hgb 31.9 pg (27.0-32.0); Mean Platelet Vol. 8.7 fl (6.2-12.0); Platelet Count 282 K/mm3 (150-450); RBC Distribution Width CV 12.4 % (11.6-14.6); Red Blood Count 4.48 M/mm3 (4.6-6.2); White Blood Count 6.1 K/mm3 (4.4-11.0)
[2022-08-02 15:06] LABS: Albumin, Serum 3.8 g/dL (3.2-5.0); BUN 26 mg/dL (7-18); Calcium,Total 9.1 mg/dL (8.5-10.1); Chloride 100 mmol/L (98-107); Creatinine, Serum 1.37 mg/dL (0.70-1.30); EST Glomerular Filtration Rate 53 mL/min (>60); Est Glom Filt Rate - Afr Amer 65 mL/min (>60); Glucose 145 mg/dL (74-106); Phosphorus 2.6 mg/dL (2.5-4.9); Potassium 4.4 mmol/L (3.5-5.1); Sodium Level 136 mmol/L (136-145)
[2022-08-02 15:08] LABS: Creatinine, Urine (random) < 13.00 mg/dL (NO RANGE EST.); Protein, Urine (Random) < 6.0 mg/dL (<11.9)
== END | disposition home or self-care (01) ==
LOC: LAB 13:33
PROVIDERS: PCP Family Medicine; Visit Provider Internal Medicine Nephrology
DX: E11.22 Type 2 diabetes mellitus with diabetic chronic kidney disease (principal); N18.31 Chronic kidney disease, stage 3a
CPT/HCPCS: 36415; 80069; 82570; 84156; 85027

== ENCOUNTER → 2022-11-06 | Outpatient (CLI) | payer MEDICARE, MEDICAID, SELFPAY ==
[2022-11-06 12:38] LABS: Cholesterol 194 mg/dL (200); High Density Lipoprotein 67 mg/dL; Triglycerides 97 mg/dL; Very Low Density Lipoprotein 19 mg/dL (5-40)
== END | disposition home or self-care (01) ==
LOC: BFHLAB 10:01
PROVIDERS: PCP Family Medicine; Visit Provider Family Medicine
DX: E11.9 Type 2 diabetes mellitus without complications (principal)
CPT/HCPCS: 36415; 80061

== ENCOUNTER → 2023-08-01 | Outpatient (CLI) | payer MEDICARE, MEDICAID, SELFPAY ==
[2023-08-01 14:32] LABS: Hematocrit 41.3 % (40-54); Hemoglobin 13.4 g/dL (13.0-16.5); Mean Corp Hgb Conc 32.4 g/dL (32-36); Mean Corpuscular Hgb 30.6 pg (27.0-32.0); Mean Corpuscular Volume 94.3 fL (80-94); Mean Platelet Vol. 8.2 fl (6.2-12.0); Platelet Count 245 K/mm3 (150-450); RBC Distribution Width CV 12.1 % (11.6-14.6); RBC Distribution Width SD 42.2 fl (35.1-43.9); Red Blood Count 4.38 M/mm3 (4.6-6.2); White Blood Count 5.8 K/mm3 (4.4-11.0)
[2023-08-01 14:55] LABS: Albumin, Serum 3.6 g/dL (3.2-5.0); BUN 23 mg/dL (7-18); Calcium,Total 8.8 mg/dL (8.5-10.1); Chloride 100 mmol/L (98-107); Creatinine, Serum 1.44 mg/dL (0.70-1.30); EST Glomerular Filtration Rate 50 mL/min (>60); Est Glom Filt Rate - Afr Amer 61 mL/min (>60); Glucose 188 mg/dL (74-106); Potassium 4.4 mmol/L (3.5-5.1); Sodium Level 135 mmol/L (136-145)
== END | disposition home or self-care (01) ==
PROVIDERS: PCP Family Medicine; Referring Provider Internal Medicine Nephrology; Visit Provider Internal Medicine Nephrology
DX: N18.31 Chronic kidney disease, stage 3a (principal)
CPT/HCPCS: 36415; 80069; 85027

== ENCOUNTER → 2023-11-16 | Outpatient (CLI) | payer MEDICARE, MEDICAID, SELFPAY ==
[2023-11-16 10:00] LABS: Vitamin B12 1242 pg/mL (211-911)
[2023-11-16 11:04] LABS: AST(SGOT) 23 U/L (15-37); Alanine Aminotransfer ALT/SGPT 20 U/L (16-61); Albumin, Serum 3.6 g/dL (3.2-5.0); Alkaline Phosphatase 107 U/L (45-117); Bilirubin, Direct 0.14 mg/dL (0.00-0.30); Cholesterol 190 mg/dL (200); Globulin 3.9 g/dL (2.2-4.2); High Density Lipoprotein 73 mg/dL; Protein, Total 7.5 g/dL (6.4-8.2); Thyroid Stim Hormone (TSH) 2.08 uIU/mL (0.358-3.74); Triglycerides 72 mg/dL; Very Low Density Lipoprotein 14 mg/dL (5-40)
== END | disposition home or self-care (01) ==
PROVIDERS: PCP Family Medicine; Referring Provider Family Medicine; Visit Provider Family Medicine
DX: E11.9 Type 2 diabetes mellitus without complications (principal); R41.3 Other amnesia
CPT/HCPCS: 36415; 80061; 80076; 82607; 84443

== ENCOUNTER → 2024-08-05 | Outpatient (CLI) | payer MEDICARE, MEDICAID, SELFPAY ==
[2024-08-05 10:04] LABS: Hemoglobin 13.8 g/dL (13.0-16.5); Mean Corp Hgb Conc 33.7 g/dL (32-36); Mean Corpuscular Hgb 31.1 pg (27.0-32.0); Mean Corpuscular Volume 92.3 fL (80-94); Mean Platelet Vol. 8.4 fl (6.2-12.0); Platelet Count 273 K/mm3 (150-450); RBC Distribution Width CV 12.3 % (11.6-14.6); RBC Distribution Width SD 42.2 fl (35.1-43.9); Red Blood Count 4.44 M/mm3 (4.6-6.2); White Blood Count 6.2 K/mm3 (4.4-11.0)
[2024-08-05 10:37] LABS: Microalbumin,Random Urine < 5.0 mg/L (NO RANGE EST.)
[2024-08-05 10:43] LABS: Albumin, Serum 3.5 g/dL (3.2-5.0); BUN 18 mg/dL (7-18); BUN/Creat Ratio 13.3 RATIO (10-20); Calcium,Total 8.9 mg/dL (8.5-10.1); Chloride 102 mmol/L (98-107); Creatinine, Serum 1.35 mg/dL (0.70-1.30); EST Glomerular Filtration Rate 54 mL/min (>60); Est Glom Filt Rate - Afr Amer 65 mL/min (>60); Glucose 163 mg/dL (74-106); Phosphorus 2.7 mg/dL (2.5-4.9); Potassium 4.1 mmol/L (3.5-5.1); Sodium Level 137 mmol/L (136-145)
== END | disposition home or self-care (01) ==
PROVIDERS: PCP Family Medicine; Referring Provider Internal Medicine Nephrology; Visit Provider Internal Medicine Nephrology
DX: E11.22 Type 2 diabetes mellitus with diabetic chronic kidney disease (principal); N18.31 Chronic kidney disease, stage 3a
CPT/HCPCS: 36415; 80069; 82043; 82570; 85027

== ENCOUNTER → 2025-02-20 | Outpatient (CLI) | payer MEDICARE, MEDICAID, SELFPAY ==
--- NOTE | 2025-02-20 14:29 | ECHOD_ITS ---
Reason For Study Reason For Study: DILATED CARDIOMYOPATHY Procedure This was a 2D Doppler, Color Flow transthoracic echocardiogram. The study was technically difficult. Exam performed in department. Left Ventricle Normal LV size. The left ventricular ejection fraction is 60 %. No regional wall motion abnormalities noted. Right Ventricle Normal RV size. Normal systolic function. Atria Normal left atrium. Normal right atrium. Mitral Valve Normal mitral valve. Tricuspid Valve The tricuspid valve is not well visualized. Mild (1+) tricuspid valve insufficiency. Pulmonary artery systolic pressure is 30 mmHg. Aortic Valve Trisinus/trileaflet aortic valve. Mild focal aortic valve calcification. Mild (1+) aortic valve insufficiency. Pulmonic Valve Normal pulmonic valve. Great Vessels Normal aortic root. The pulmonary artery is normal size. Inferior vena cava collapse with respiration. Pericardium/Pleural No pericardial effusion. MMode/2D Measurements & Calculations LVIDd: 3.8 cm IVSd: 1.2 cm Ao root diam: 3.1 cm LVIDs: 2.3 cm LVPWd: 1.1 cm RVDd: 3.1 cm FS: 38.7 % LAV(MOD-bp): 26.9 ml LVAd ap4: 19.2 cm2 SV(MOD-sp4): 30.9 ml LAV(MOD-bp) Indexed: 15.4 ml/m2 LVLd ap4: 6.2 cm SI(MOD-sp4): 17.7 ml/m2 LAV(MOD-sp2): 24.9 ml EDV(MOD-sp4): 50.0 ml LAV(MOD-sp4): 21.2 ml EDV(sp4-el): 50.8 ml LVAs ap4: 10.8 cm2 LVLs ap4: 5.2 cm ESV(MOD-sp4): 19.1 ml ESV(sp4-el): 19.1 ml EF(MOD-sp4): 61.8 % EF(sp4-el): 62.4 % SV(sp4-el): 31.7 ml LA A4 area: 11.8 cm2 LA dimension(2D): 2.8 cm RA A4 area: 11.4 cm2 TAPSE: 1.8 cm Time Measurements MV dec time: 0.15 sec Doppler Measurements & Calculations MV E max anurag: 62.1 cm/sec Lat Peak E' Anurag: 6.8 cm/sec Med Peak E' Anurag: 8.9 cm/sec MV A max anurag: 111.2 cm/sec E/E' lat: 9.1 E/E' med: 7.0 MV E/A: 0.56 Ao V2 max: 126.9 cm/sec AI max anurag: 314.9 cm/sec LV V1 max: 92.9 cm/sec Ao max P.4 mmHg AI max P.7 mmHg LV V1 max P.5 mmHg AI dec slope: 264.4 cm/sec2 AI P1/2t: 348.8 msec PA V2 max: 142.0 cm/sec TR max anurag: 257.9 cm/sec TR max P.6 mmHg ECHO/Echo Complete Interpretation Summary Normal LV size. The left ventricular ejection fraction is 60 %. Mild focal aortic valve calcification. Trisinus/trileaflet aortic valve. Pulmonary artery systolic pressure is 30 mmHg. Ordering Physician: Camacho Joiner Referring Physician: SARA BARBOUR Performed By: Heather Vazquez RDCS
== END | disposition home or self-care (01) ==
LOC: CVS 14:28
PROVIDERS: PCP Family Medicine; Referring Provider Internal Medicine Cardiovascular Disease; Visit Provider Internal Medicine Cardiovascular Disease
DX: I42.8 Other cardiomyopathies (principal)
CPT/HCPCS: 93306

== ENCOUNTER → 2025-05-11 | Outpatient (CLI) | payer MEDICARE, MEDICAID, SELFPAY ==
[2025-05-11 10:58] LABS: Hematocrit 39.6 % (40-54); Hemoglobin 13.2 g/dL (13.0-16.5); Immature Granulocytes Count 0.010 X10^3/uL (0.0-0.0); Mean Corp Hgb Conc 33.3 g/dL (32-36); Mean Corpuscular Volume 93.4 fL (80-94); Mean Platelet Vol. 8.5 fl (6.2-12.0); NRBC Flagged by Analyzer 0 % (0-5); Platelet Count 261 K/mm3 (150-450); RBC Distribution Width CV 12.2 % (11.6-14.6); RBC Distribution Width SD 41.9 fl (35.1-43.9); Red Blood Count 4.24 M/mm3 (4.6-6.2); White Blood Count 5.2 K/mm3 (4.4-11.0)
[2025-05-11 11:32] LABS: Creatinine, Urine (random) 21.60 mg/dL (39.00-259.00); Microalbumin,Random Urine < 12.0 mg/L (<20 mg/L)
[2025-05-11 11:43] LABS: AST(SGOT) 26 U/L (<=37); Alanine Aminotransfer ALT/SGPT 14 U/L (<=46); Albumin, Serum 4.1 g/dL (3.4-4.8); Alkaline Phosphatase 112 U/L (40-129); Anion Gap 10 (5-15); BUN 28 mg/dL (4-19); BUN/Creat Ratio 18.6 RATIO (10-20); Calcium,Total 9.7 mg/dL (7.6-11.0); Carbon Dioxide 27.1 mmol/L (21.0-32.0); Chloride 100 mmol/L (98-108); Cholesterol 181 mg/dL (<=200); Globulin 3.1 g/dL (2.2-4.2); Glucose 188 mg/dL (70-99); Low Density Lipoprotein Calc. 106 mg/dL; Potassium 4.7 mmol/L (3.3-5.1); Triglycerides 64 mg/dL; Very Low Density Lipoprotein 13 mg/dL (5-40); cholesterol:hdl ratio screen 2.90
== END | disposition home or self-care (01) ==
LOC: LAB 10:30
PROVIDERS: PCP Family Medicine; Referring Provider Family Medicine; Visit Provider Family Medicine
DX: E11.22 Type 2 diabetes mellitus with diabetic chronic kidney disease (principal); N18.31 Chronic kidney disease, stage 3a
CPT/HCPCS: 36415; 80053; 80061; 82043; 82570; 83036; 84100; 85025